=== PATIENT | female | born 1940 | race Caucasian/White ===

== ENCOUNTER 2016-12-26 09:38 | Outpatient (CLI) | payer MEDICARE, MEDICAID ==
--- NOTE | 2016-12-26 10:09 | SJPRAD ---
THERE VIEWS RIGHT HAND: Indication: Right hand pain. FINDINGS: There is moderate first CMC osteoarthrosis. There is moderate STT osteoarthrosis. There is scattered IP osteoarthrosis. There is mild to moderate long finger MCP osteoarthritic change with associated subchondral cyst like abnormality. IMPRESSION: Scattered osteoarthrosis of the right hand. POS: [facility]
== END 2016-12-26 09:39 | disposition home or self-care (01) ==
LOC: MWLC RAD 09:38
PROVIDERS: ATTEND Internal Medicine Geriatric Medicine
DX: M79.641 Pain in right hand (principal); M19.041 Primary osteoarthritis, right hand

== ENCOUNTER 2017-05-28 08:23 | Outpatient (CLI) | payer MEDICARE, MEDICAID | END 2017-05-28 08:24 | disposition home or self-care (01) | LOC: BICULT 08:23 | PROVIDERS: ATTEND Internal Medicine Geriatric Medicine | DX: M54.2 Cervicalgia (principal) | CPT/HCPCS: 76536 ==

== ENCOUNTER 2017-07-10 08:36 | Outpatient (CLI) | payer MEDICARE, MEDICAID ==
--- NOTE | 2017-07-11 12:21 | RAD ---
MODIFIED BARIUM SWALLOW WITH SPEECH THERAPIST: HISTORY: The patient is a 7-year-old female with unspecified dysphagia with other cerebrovascular disease as w ell as gastroesophageal reflux disease without esophagitis. FINDINGS: The patient was evaluated in the upright seated position in the lateral projection. The patient was given multiple consistencies. There was some minimal premature spillage in the vallecula. There was penetration with essentially a ll consistencies without tania aspiration. Anterior cervical changes at what appears to be C3, C4, C 5, C6, and probably C7. IMPRESSION: Penetration with most all consistencies with minimal premature spillage in the vallecula. POS: [facility]
== END 2017-07-10 08:37 | disposition home or self-care (01) ==
PROVIDERS: ATTEND Internal Medicine Geriatric Medicine
DX: R13.10 Dysphagia, unspecified (principal); I67.89 Other cerebrovascular disease; K21.9 Gastro-esophageal reflux disease without esophagitis
CPT/HCPCS: 74230; G8996-GN-CJ; G8997-GN-CI; G8998-GN-CJ

== ENCOUNTER 2017-07-19 08:04 | Outpatient (CLI) | payer MEDICARE, MEDICAID ==
--- NOTE | 2017-07-19 09:08 | RAD ---
CERVICAL SPINE 3 VIEWS: Date: 07/19/17 HISTORY: 77-year-old female with history of neck pain. COMPARISON: 07/29/15. FINDINGS: Anterior cervical fusion changes are noted at C3, C4, C5, C6, and C7. The right-sided C3 and right-si ded C& screws have been removed when compared to the 07/29/15 study. There is fusion of C4 through C7 . Disc degenerative changes are noted at C2-C3 and C3-C4. No significant free vertebral soft tissue s welling. No significant malalignment. IMPRESSION: Extensive postoperative metal plate and screw stabilization from C3 through C7. Other than removal of the right-sided screws from C3 and C7, there is no significant change from the prior study. POS: [facility]
== END 2017-07-19 08:05 | disposition home or self-care (01) ==
LOC: TBSIIMAG 08:04
PROVIDERS: ATTEND Surgery
DX: M54.2 Cervicalgia (principal); Z98.890 Other specified postprocedural states
CPT/HCPCS: 72040

== ENCOUNTER 2017-07-23 10:32 | Outpatient (CLI) | payer MEDICARE, MEDICAID | END 2017-07-23 10:33 | disposition home or self-care (01) | LOC: BICMRI 10:32 | PROVIDERS: ATTEND Orthopaedic Surgery | DX: M25.511 Pain in right shoulder (principal); M67.88 Other specified disorders of synovium and tendon, other site; M19.011 Primary osteoarthritis, right shoulder; M25.711 Osteophyte, right shoulder; R60.0 Localized edema ==

== ENCOUNTER 2017-08-14 08:29 | Day surgery (SDC) | payer MEDICARE, MEDICAID ==
[2017-08-13 10:14] VITALS: BMI 40.2
--- NOTE | 2017-08-14 11:51 | OP ---
DATE OF PROCEDURE: 08/14/2017 PROCEDURE: Esophagogastroduodenoscopy with Aguilar dilation. PHYSICIAN: Gonsalo rCooks M.D. ANESTHESIA: Pain medications given by Anesthesiology Department. PREOPERATIVE DIAGNOSES: 1. Gastroesophageal reflux disease. 2. Dysphagia, oropharyngeal dysphagia with modified barium swallow. 3. Excluding any intraluminal process contributing to her dysphagia. POSTOPERATIVE DIAGNOSES: 1. Normal esophagus, Z-line at 42 cm. 2. Normal stomach and duodenum. 3. Status post empiric esophageal dilatation with 54-[place] Aguilar without resistance. PROCEDURE IN DETAIL: A written consent was obtained prior to procedure. After adequate sedation, th e forward-viewing endoscope was advanced down the hypopharynx under direct vision to the second porti on of duodenum. The first and second portion appeared normal. The duodenal bulb appeared normal. P ylorus is patent. The gastric antrum, body, fundus, and cardia all appeared normal. Retroflexion di d not show any abnormality. The GE junction was noted at 42 cm from the incisors. The Z-line appear s to be regular. The distal, mid, and upper esophagus appeared normal. Despite no abnormality seen in the esophagus, empiric dilatation was performed using a 54-[place] Aguilar without any resistance. Patient tolerated the procedure well without any complication. ASSESSMENT: 1. Normal upper endoscopy. 2. Status post esophageal dilatation with 54 [place] Aguilar without any resistance. 3. Dysphagia is from oropharyngeal transfer type. RECOMMENDATIONS: Proceed with a VitalStim therapy.
[2017-08-14] MEDS ORDERED: Lidocaine 1% PF 5 ML VIAL ONE (12:39)
[2017-08-14] MEDS ORDERED: PROPOFOL 200 MG/20 ML VIAL ONE (12:39)
== END 2017-08-14 12:00 | disposition home or self-care (01) ==
LOC: SDC 08:29
PROVIDERS: ATTEND Internal Medicine Gastroenterology
PROC: 0D758ZZ Dilation of Esophagus, Via Natural or Artificial Opening Endoscopic (ICD-10-PCS; principal; 2017-08-14)
DX: K21.9 Gastro-esophageal reflux disease without esophagitis (principal); J45.909 Unspecified asthma, uncomplicated; I10 Essential (primary) hypertension; M19.90 Unspecified osteoarthritis, unspecified site; F41.9 Anxiety disorder, unspecified; F32.9 Major depressive disorder, single episode, unspecified; Z88.2 Allergy status to sulfonamides; Z88.8 Allergy status to other drugs, medicaments and biological substances; Z86.73 Personal history of transient ischemic attack (TIA), and cerebral infarction without residual deficits

== ENCOUNTER 2017-10-21 08:34 | Outpatient (CLI) | payer MEDICARE, MEDICAID ==
--- NOTE | 2017-10-21 11:16 | RAD ---
CERVICAL SPINE 3 VIEWS: Date: 10/21/17 HISTORY: 77-year-old female with history of cervicalgia. Fall last year with neck pain and pain down right arm . COMPARISON: 07/19/17. FINDINGS: Anterior cervical fusion changes are noted at C3, C4, C5, C6, and C7, with some mild retrolisthesis o f C3 on C4, stable from prior study, 07/19/17. No prevertebral soft tissue swelling. Generalized face t arthrosis. IMPRESSION: Extensive anterior cervical fusion changes from C3-C7 with mild retrolisthesis of C3 on C4, stable. N o new process. POS: [facility]
== END 2017-10-21 08:35 | disposition home or self-care (01) ==
LOC: TBSIIMAG 08:34
PROVIDERS: ATTEND Surgery
DX: M50.30 Other cervical disc degeneration, unspecified cervical region (principal); M43.12 Spondylolisthesis, cervical region; Z98.1 Arthrodesis status
CPT/HCPCS: 72040

== ENCOUNTER 2017-10-28 09:12 | Emergency (ER) | payer MEDICARE, MEDICAID ==
--- NOTE | 2017-10-28 11:04 | RAD ---
PA CHEST AND RIGHT RIB SERIES: Date: 10/28/17 HISTORY: Fall, right-sided chest pain. FINDINGS/IMPRESSION: The heart size is normal. The aorta is tortuous. The lungs are well expanded without lobar consolidat ion, pneumothoraces, or pleural effusions. There are degenerative changes in the right shoulder joint . Postop changes of metallic hardware are seen in the lower cervical spine and a left humeral head pr osthesis is present. There is suggestion of fractures involving the right 6th, 7th, and 8th ribs. There are postop changes and metallic hardware in the lumbar spine. There are postop changes of gastr ic banding. POS: [facility]
== END 2017-10-28 11:03 | disposition home or self-care (01) ==
LOC: SCSER 09:12
DX: R07.89 Other chest pain (principal); E03.9 Hypothyroidism, unspecified; K21.9 Gastro-esophageal reflux disease without esophagitis; I10 Essential (primary) hypertension; Z86.73 Personal history of transient ischemic attack (TIA), and cerebral infarction without residual deficits; F41.9 Anxiety disorder, unspecified; F32.9 Major depressive disorder, single episode, unspecified; W18.30XA Fall on same level, unspecified, initial encounter; Z79.899 Other long term (current) drug therapy

== ENCOUNTER 2017-10-29 12:38 | Emergency (ER) | payer MEDICARE, MEDICAID ==
--- NOTE | 2017-10-29 14:01 | CT ---
CT ABDOMEN AND PELVIS WITHOUT CONTRAST: Date: 10/29/17 HISTORY: Hematuria. FINDINGS: Absence of oral and IV contrast reduces the sensitivity of exam, particularly for evaluation of solid organs and bowel. There are mild dependent changes in the lung bases. There are postop changes of gastric banding and p osterior spinal fusion with metallic hardware in the lumbar spine. No free air or free fluid is seen in the abdomen or pelvis. No calcified gallstones are identified. The liver demonstrates decreased at tenuation compared to the spleen consistent with fatty infiltration. A solitary right kidney is present. No calculi seen in the right kidney, right ureter, or the urinary bladder. No hydroureteronephrosis is noted on the right. No calculi seen in the urinary bladder. The patient is post hysterectomy. The small bowel loops are not abnormally dilated. There are calcifi ed injection granulomas in the gluteal fat. Heterotopic ossification is also seen in the right glutea l fat. IMPRESSION: 1. Solitary right kidney without evidence of urinary tract calculi or obstruction. 2. Fatty liver. POS: [facility]
[2017-10-29] MEDS ORDERED: Lidocaine 1% PF 5 ML VIAL ONE (14:42)
[2017-10-29] MEDS ORDERED: cefTRIAXone\\ROCEPHIN 1 GM VIAL ONE (14:42)
[2017-10-29] MEDS ORDERED: Ondansetron ODT 4 MG TAB ONE (15:18)
== END 2017-10-29 15:11 ==
LOC: ERS 12:38
DX: N39.0 Urinary tract infection, site not specified (principal); R31.9 Hematuria, unspecified; I10 Essential (primary) hypertension; F32.9 Major depressive disorder, single episode, unspecified
CPT/HCPCS: 74176; 87077; 87086; 87186; 96372; 99213; G0463; J0696; J2001; Q0162

== ENCOUNTER 2018-02-11 13:06 | Observation (INO) | payer MEDICARE, MEDICAID ==
[2018-02-11 14:11] LABS: #Eosinphils 0.1 thou/uL (0.0-0.7); #Lymphocytes 1.7 thou/uL (1.20-3.40); #Monocytes 0.6 thou/uL (0.11-0.59); #Neutrophils 5.8 thou/uL (1.40-6.50); %Basophils 0.5 % (0.0-1.0); %Eosinophils 1.5 % (0.0-10.0); %Lymphocytes 20.9 % (21.0-51.0); %Monocytes 7.4 % (0.0-10.0); %Neutrophils 69.7 % (42.0-75.0); Hemoglobin 12.7 g/dL (12.0-16.0); Mean Corpuscular HGB CONC 32.6 g/dL (32.0-36.0); Mean Corpuscular Hemoglobin 30.1 pg (27.0-31.0); Mean Corpuscular Volume 92.4 fL (78.0-98.0); Mean Platelet Volume 8.1 fL (7.4-10.4); Platelet Count 233 thou/uL (130-400); RBC Distribution Width 12.4 % (11.5-14.5); Red Blood Cell (RBC) Count 4.22 mill/uL (4.20-5.40); White Blood Cell (WBC) Count 8.3 thou/uL (4.8-10.8)
[2018-02-11 14:32] LABS: ALT (SGPT) 10 U/L (8-55); AST (SGOT) 15 U/L (5-34); Albumin 4.3 g/dL (3.4-4.8); Alkaline Phosphatase 92 U/L (40-150); Anion Gap 13 mmol/L (10-20); BUN (Urea Nitrogen) 30 mg/dL (9.8-20.1); Bilirubin, Total 0.4 mg/dL (0.2-1.2); Calc. Creatinine Clearance 0 mL/min (70-130); Calcium 9.9 mg/dL (7.8-10.44); Carbon Dioxide 26 mmol/L (23-31); Chloride 103 mmol/L (98-107); Estimated GFR-MDRD 46; Globulin 3.2 g/dL (2.4-3.5); Glucose 96 mg/dL (83-110); Protein, Total 7.5 g/dL (6.0-8.3); Sodium 138 mmol/L (136-145)
--- NOTE | 2018-02-11 14:32 | RAD ---
UPRIGHT PORTABLE CHEST 1 VIEW: HISTORY: A 7-year-old female with a history of syncope. Fell backwards while walking and hit head on ground. COMPARISON: 10/28/2017. FINDINGS: Monitor leads overlie the chest. Postop changes involving the lower cervical spine and surgical clip s overlying the right medial supraclavicular region as well as left total shoulder replacement. Hear t size is upper range normal. Atherosclerosis of the aorta. No confluent pneumonia, overt edema, or pleural effusion. IMPRESSION: Borderline heart size. Atherosclerosis of the aorta with some ectasia. Overall stable from prior st y. POS: [facility]
[2018-02-11 14:33] LABS: Bilirubin Negative (Negative); Blood, Urine Negative (Negative); Clarity CLEAR (Clear); Glucose, Urine (Dipstick) Negative (Negative); Leukocyte Small (Negative); Nitrite Negative (Negative); Protein, Urine (Dipstick) Negative (Neg-Trace); Specific Gravity, Urine 1.019 (1.002-1.036); Urobilinogen 0.2 mg/dL (0.2-1.0); pH, Urine 5.5 (5.0-9.0)
[2018-02-11 14:35] LABS: Bacteria/HPF None Seen HPF (None Seen); Hyaline Casts/LPF 0-3 HYALINE CAST LPF (0-3 Hyaline); Pathc Cast-AUWi Flag 0.43 (0-2.49); RBC/HPF 0-3 HPF (0-3); Squamous Epithelial 0-3 HPF (0-3)
[2018-02-11 14:37] LABS: CKMB 1.3 ng/mL (0-6.6); Troponin I Less than 0.010 ng/mL (< 0.028)
--- NOTE | 2018-02-11 15:09 | CT ---
CT BRAIN WITHOUT CONTRAST: HISTORY: Syncope, fall, hit her head, seizure. FINDINGS: Comparison is made with the exam of 01/26/2016. Changes of chronic small-vessel ischemic disease are again seen. The ventricular size is appropriate and the basilar cisterns patent. The old infarct in the left basal ganglia is again seen. No evide nce of acute infarct, hemorrhage, midline shift, or abnormal extraaxial fluid collections noted. The bony calvarium is intact. The visualized paranasal sinuses are well aerated. IMPRESSION: No CT evidence of acute intracranial process. POS: [facility]
--- NOTE | 2018-02-11 15:26 | CT ---
CT CERVICAL SPINE WITHOUT CONTRAST: HISTORY: Fall. Posttraumatic pain. COMPARISON: 07/29/2015. FINDINGS: Lateral masses of C1 and C2 as well as the facets have appropriate articulation. Intact odontoid pro cess. Straightening of normal cervical lordosis is again noted. There is 3 mm of anterolisthesis of C2 upon of C3. There is an anterior fusion plate with transvertebral body screws from C3 through C7 . The right screw at C3 has come loose and is not appropriately located on the current examination. The right screw at C7 also appears to be absent. Previously, the screws at C3 and C7 were not flush with the plate. Main screws are unremarkable. Soft tissue neck structures are unremarkable. Upper mediastinum and lung apices are also unremarkable. Vertebral body height is maintained. There is no fracture. IMPRESSION: 1. No fracture. 2. Interval absence of a screw in the right aspect of the fusion plate of C3 and C7. 3. Stable degenerative changes with varying degrees of central canal stenosis and foraminal narrowin g. Evaluation is limited by technique. 4. Stable spondylolisthesis involving the upper cervical spine. POS: [facility]
--- NOTE | 2018-02-11 15:32 | CT ---
THORACIC SPINE CT WITHOUT CONTRAST: HISTORY: Fall. Posttraumatic pain. COMPARISON: 07/14/2015. TECHNIQUE: CT thoracic spine is performed without contrast. FINDINGS: Stable degenerative change of the thoracic spine. Thoracic spine vertebral body height is maintained . No fracture. No spondylolisthesis or spondylolysis. Multilevel degenerative disk disease with loss of disk space height and vacuum disk phenomenon. Cervical fusion hardware is noted. Limited evaluation of the mediastinum. No mass, lymphadenopathy, or hematoma. Normal heart size. N o significant pericardial fluid. Note is made of a gastric LAP band. The visualized retroperitoneal structures are unremarkable. Central spinal canal and neural foramen are patent. Evaluation is limited by technique. Visualized ribs are also intact. IMPRESSION: 1. No fracture. 2. Stable degenerative changes of the thoracic spine. POS: [facility]
[2018-02-11] MEDS ORDERED: Acetaminophen 325 MG TAB PO PRN (16:45)
[2018-02-11] MEDS ORDERED: Lactated Ringer's 1,000 ML IV SCH (17:00)
--- NOTE | 2018-02-11 17:29 | PDOC.FPRHP ---
- History of Present Illness Chief Complaint: fall History of Present Illness: 77 yo F with PMH of "irregular heart rate" and stroke presents to ED after syncopal episode earlier today. She was walking around house when she had an unwitnessed fall landing on her back. At baseline she requires a 4wheel walker to ambulate but was not using it before fall. Denies any prodromal symptoms. Patient is poor historian and unable to tell if she lost consciousness or not. She states coming-to and feeling disoriented. Daughter walked in shortly after fall and stated she saw patient with full body convulsions lasting a few minutes , unresponsive to verbal command. After, she patient was confused to situation. Patient denies loss of urine, bowels. Had prior seizure in October while undergoing MRI imaging at hospital, but no further workup was conducted. Also has PMH of stroke and panic disorder, but denies any similar sxs during this fall. Denied chest pain, neurologic deficits, headache. She has been followed by Dr. Hill for "fast heart beats" in which she has undergone holter monitoring that confirmed this. He had wanted her to undergo a stress test but was unable to complete it. - Allergies/Adverse Reactions Allergies Allergy/AdvReac Type Severity Reaction Status Date / Time amoxicillin trihydrate Allergy severe Verified 02/11/18 17:11 [From Augmentin] yeast infection potassium clavulanate Allergy severe Verified 02/11/18 17:11 [From Augmentin] yeast infection sulfisoxazole AdvReac Severe Nausea Verified 02/11/18 17:11 [From Gantrisin] - Home Medications Medication Instructions Recorded Confirmed Type Amitriptyline HCl [Elavil] 100 mg PO HS 04/27/13 02/11/18 History Clopidogrel Bisulfate [Plavix] 75 mg PO DAILY 04/27/13 02/11/18 History Metoprolol Succinate 2 tab PO QAM 04/27/13 02/11/18 History Fenofibrate [Tricor] 1 tab PO HS 12/17/14 02/11/18 History busPIRone HCl [Buspirone HCl] 1 tab PO TID 12/17/14 02/11/18 History Furosemide [Lasix] 20 mg PO DAILY 12/18/14 02/11/18 History Levothyroxine Sodium [Synthroid] 75 mcg PO DAILY 12/18/14 02/11/18 History Potassium Chloride 8 meq PO DAILY 07/13/15 02/11/18 History Cholecalciferol (Vitamin D3) 10,000 unit PO DAILY 08/16/15 02/11/18 History [Vitamin D3] Aspirin [Low Dose Aspirin EC] 81 mg PO DAILY 11/09/15 02/11/18 History Pantoprazole [Protonix] 40 mg PO BID 01/30/16 02/11/18 History FLUoxetine HCl [Prozac] 60 mg PO DAILY 08/13/17 02/11/18 History Gabapentin 100 mg PO BID 08/13/17 02/11/18 History clonazePAM 1 tab PO HS 08/13/17 02/11/18 History Acetaminophen [Tylenol] 1,000 mg PO Q6HR PRN 02/11/18 02/11/18 History Fluticasone Propionate [Flonase 1 spray EA NARE BID 02/11/18 02/11/18 History Nasal [place]] [place]-3 Fatty Acids/Fish Oil [Fish 1 cap PO DAILY 02/11/18 02/11/18 History Oil 1,000 mg Capsule] tiZANidine HCl [Zanaflex] 4 mg PO Q8HR PRN 02/11/18 02/11/18 History - History PMHx: Dysphagia, HTN, COPD, High risk for falls, Panic disorder, Dysthymic disorder, Abnormal heart rhythm, Hypothyroidism?, GERD, CKD, 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 denies: nausea, vomiting, constipation, GI bleeding Genitourinary: denies: dysuria Skin: denies: lesions Musculoskeletal: reports: pain, stiffness, arthritis/arthralgias Neurological: reports: syncope, seizure, weakness Psychological: reports: anxiety - Vital signs BP: [151/65] HR: [63] RR: [16] Tmax: [98] Pox: [96]% on [RA] Wt: [108] - Physical Exam Constitutional: awake, alert and oriented, other -Constitutional: anxious appearing HEENT: normocephalic and atraumatic, PERRLA, EOMI, conjunctiva clear, no scleral icterus, normal nasal mucosa, oropharynx clear, other (mild periorbital edema) -HEENT: mildly dry mucous membranes Neck: supple, FROM, trachea midline Chest: no-tender to palpation Heart: RRR, normal S1/S2, no murmurs/rubs/gallops Lungs: CTAB, no respiratory distress, no wheezing Abdomen: soft, non-tender, no masses/distention Musculoskeletal: normal tone, ROM grossly normal -Musculoskeletal: BLE strength 4/5 Neurological: no focal deficit, CN II-XII intact, normal sensation Skin: no rash/lesions, capillary refill <2 seconds -Skin: prior, healed scars at lumbar spinal area from prior surgeries dec. skin turgor Heme/Lymphatic: no unusual bruising or bleeding, no petechia Psychiatric: other (anxious affect) FMR H&P: Results - Labs Result Diagrams: 02/12/18 03:17 02/12/18 03:17 Lab results: WBC 8.3 thou/uL (4.8-10.8) 02/11/18 14:02 Hgb 12.7 g/dL (12.0-16.0) 02/11/18 14:02 Hct 39.0 % (36.0-47.0) 02/11/18 14:02 MCV 92.4 fL (78.0-98.0) 02/11/18 14:02 Plt Count 233 thou/uL (130-400) 02/11/18 14:02 Neutrophils % 69.7 % (42.0-75.0) 02/11/18 14:02 Sodium 138 mmol/L (136-145) 02/11/18 14:02 Potassium 4.0 mmol/L (3.5-5.1) 02/11/18 14:02 Chloride 103 mmol/L (98-107) 02/11/18 14:02 Carbon Dioxide 26 mmol/L (23-31) 02/11/18 14:02 BUN 30 mg/dL (9.8-20.1) H 02/11/18 14:02 Creatinine 1.15 mg/dL (0.6-1.1) H 02/11/18 14:02 Glucose 96 mg/dL (83-110) 02/11/18 14:02 Calcium 9.9 mg/dL (7.8-10.44) 02/11/18 14:02 Total Bilirubin 0.4 mg/dL (0.2-1.2) 02/11/18 14:02 AST 15 U/L (5-34) 02/11/18 14:02 ALT 10 U/L (8-55) 02/11/18 14:02 Alkaline Phosphatase 92 U/L (40-150) 02/11/18 14:02 CK-MB (CK-2) 1.3 ng/mL (0-6.6) 02/11/18 14:02 Serum Total Protein 7.5 g/dL (6.0-8.3) 02/11/18 14:02 Albumin 4.3 g/dL (3.4-4.8) 02/11/18 14:02 Urine Ketones Negative mg/dL (Negative) 02/11/18 14:21 Urine Blood Negative (Negative) 02/11/18 14:21 Urine Nitrite Negative (Negative) 02/11/18 14:21 Ur Leukocyte Esterase Small (Negative) H 02/11/18 14:21 Urine RBC 0-3 HPF (0-3) 02/11/18 14:21 Urine WBC 4-6 HPF (0-3) H 02/11/18 14:21 Ur Squamous Epith Cells 0-3 HPF (0-3) 02/11/18 14:21 Urine Bacteria None Seen HPF (None Seen) 02/11/18 14:21 - EKG Interpretation EKG: possible prolonged QTc at 464, repeat showed QTc <460 FMR H&P: A/P - Problem List (1) Episode of syncope Current Visit: Yes Status: Acute Code(s): R55 - SYNCOPE AND COLLAPSE (2) MINI (acute kidney injury) Current Visit: Yes Status: Acute Code(s): N17.9 - ACUTE KIDNEY FAILURE, UNSPECIFIED (3) CKD (chronic kidney disease) Current Visit: Yes Status: Chronic Code(s): N18.9 - CHRONIC KIDNEY DISEASE, UNSPECIFIED (4) Hypertension Current Visit: No Status: Chronic Code(s): I10 - ESSENTIAL (PRIMARY) HYPERTENSION (5) GERD (gastroesophageal reflux disease) Current Visit: No Status: Chronic Code(s): K21.9 - GASTRO-ESOPHAGEAL REFLUX DISEASE WITHOUT ESOPHAGITIS (6) Dysphagia Current Visit: Yes Status: Acute Code(s): R13.10 - DYSPHAGIA, UNSPECIFIED (7) History of nephrectomy, unilateral Current Visit: Yes Status: Chronic Code(s): Z90.5 - ACQUIRED ABSENCE OF KIDNEY (8) Generalized anxiety disorder Current Visit: Yes Status: Chronic Code(s): F41.1 - GENERALIZED ANXIETY DISORDER (9) Panic disorder Current Visit: Yes Status: Chronic Code(s): F41.0 - PANIC DISORDER [ EPISODIC PAROXYSMAL ANXIETY] (10) History of CVA (cerebrovascular accident) Current Visit: Yes Status: Chronic Code(s): Z86.73 - PRSNL HX OF TIA (TIA), AND CEREB INFRC W/O RESID DEFICITS - Plan 77 yo F here for syncopal workup Syncopal episode -Likely cardiogenic in nature based on history, however no recent records. Will work up for cardiogenic etiologies and request records -Prolactin mildly elevated, consider primary seizure if cardiac w/u negative -Plan for NST tomorrow, tele monitoring. -Continue DUAP -CE negative x2, will continue to trend -Will risk stratify with A1c, FLP. Will check Mg/Phos -Will request records from Dr. Hill's office to see if recent echos performed MINI vs CKD -Pt gfr & creatinine around baseline likely from nephrectomy, but creatinine mildly elevated compared to prior hosp. values -Will give fluid bolus of 500cc -Possible hx of CHF so will not resume mIVF, will need to confirm this -Continue to monitor with daily BMPs HTN -hold metoprolol for stress test -continue lasix -hydralazine prn Possible hypothyroidism -Pt on home synthroid, however no records with confirmed dx -Hold synthroid, check recent TSH Hx of left nephrectomy -Not on dialysis, renal function around baseline Anxiety -continue home meds Panic disorder -continue home meds High risk for falls -fall precautions -walking program evaluation dvt ppx: SCDs gi ppx: protonix dipso: <[address] 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 Patient states she was up walking around in her home when she suddenly fell. She remembers screaming for help but cannot remember much after that point. The fall was unwitnessed. However, a few minutes later, her daughter came into the room and reportedly saw her shaking as if she was having a seizure. She states that she seemed out of it after the incident and kept stating she did not feel well. She reportedly had a "seizure" back in October. She has no other prior history of seizure and no history of syncopal episodes previously. Patient was recently seen at [facility] and referred to Dr. Hill for cardiac workup to include stress test. She was supposed to have stress test performed by Dr. Hill on Dec 31, however, it never got done due to "IV access issues" per the patient. Patient reports fluttering in her chest, but has no previous diagnosis of a-fib or a-flutter. She wore a halter monitor several years ago and everything was reportedly normal at that time. Patient currently denies any chest pain, shortness of breath, diaphoresis. Of note, patient is supposed to use walker or electrical wheelchair, but she has not been using it as advised. - Pertinent findings General: Alert, oriented x3. NAD. Appears anxious. HEENT: PERRLA, Periorbital edema bilaterally Cards: RRR, no murmurs Resp: No acute respiratory distress. Clear to auscultation Neuro: No focal deficits. CN II-XII intact. SHALINI: Strength 3/5 bilateral lower extremities. Poor patient effort. Skin: Warm and dry. - Plan Date/Time: 02/11/18 1702 I, Tiffani Tolliver, have evaluated this patient and agree with findings/plan as outlined by technology risk intern resident. Pertinent changes/additions are listed here. Syncope possibly related to cardiac etiology: - No prodromal symptoms - EKG with very mild QT prolongation which resolved on subsequent EKG; junctional rhythm noted on 2nd EKG - Avoid additional QT prolongation medications - Continuous monitoring on telemetry - Stress test in AM to evaluate for CAD at cause of syncope - Obtain records from Dr. Hill's office; verify last echo - Trend troponins; neg x2 - HgA1c, lipid panel, TSH, Mg, P - Mild fluid resuscitation - Orthostatic vital signs - Consider cardiology consult for holter monitor ZACK with history of panic attacks - Continue home medications - Reassurance COPD - Reportedly on 3L O2 at home - Satting 95% on RA; Do not give O2 (goal 88-92%) - Continue home medications HTN - Continue home medications Hypothyroidism - Questionable diagnosis; cannot find in clinic chart where this has been diagnosed, but patient on meds per pharmacy - Hold levothyroxine for now to verify. TSH pending GERD - Continue home medication Hx of CVA - Continue plavix, ASA - Continue statin or start statin if not already on one MINI vs. 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 Tolliver and Dr. Bateman I agree with the History, Examination, Assessment and Plan documented above with any addition or exceptions noted below. 77 yo female with multiple medical conditions presents to ER for evaluation of LOC and fall Patient reports fall with LOC. Patient's daughter reports brief episode of convulsions. Patient denies aura or symptoms prior to passing out. Reports an episode of diarrhea x1 the previous day. No longer able to tolerate lasix due to renal function. Reporting increased swelling. History of multiple falls and now requires assistance with ambulation but not using at home. VS reviewed. Imaging reviewed. Labs reviewed. Non ill appearing. RRR. No murmur. CTA bilaterally Some bruising noted to extremities. 1. Syncopal event: Unsure etiology at this time. Risk for cardiovascular cause due to past medical history. Does report palpitations in ROS. Denies any symptoms prior to event today. Possible related to hypovolemia as well. Obtain orthostatic vitals. Place on tele. Evaluate cardiovascular status with ECHO. Has outpatient stress testing pending will proceed while inpatient due to risk. Prolactin mildly high but likely related to psych meds. Brain imaging negative, however only CT performed. Monitor other comobidities. Adjust meds as needed. ABrayMD
[2018-02-11] MEDS ORDERED: Lactated Ringer's 500 ML IV SCH (17:45)
[2018-02-11 17:52] LABS: Troponin I Less than 0.010 ng/mL (< 0.028)
[2018-02-11 18:11] VITALS: BMI 43.7
[2018-02-11 18:28] LABS: Hemoglobin A1c 5.6 % (4.0-6.0)
[2018-02-11 18:39] LABS: CKMB 1.1 ng/mL (0-6.6)
[2018-02-11] MEDS ORDERED: hydrALAZINE 20 MG/ML VIAL SLOW IVP PRN (18:44)
[2018-02-11] MEDS ORDERED: tiZANidine HCl 4 MG TAB PO PRN (18:48)
[2018-02-11] MEDS: Acetaminophen 500 MG TAB PO PRN (18:52)
[2018-02-11] MEDS ORDERED: clonazePAM 0.5 MG TAB PO SCH (21:00)
[2018-02-11] MEDS ORDERED: traMADol HCl 50 MG TAB PO SCH (21:00)
[2018-02-11] MEDS ORDERED: Amitriptyline HCl 100 MG TAB PO SCH (21:00)
[2018-02-11] MEDS ORDERED: Fenofibrate Nanocrystallized 145 MG TAB PO SCH (21:00)
[2018-02-11 21:01] LABS: Troponin I Less than 0.010 ng/mL (< 0.028)
[2018-02-11] MEDS: busPIRone HCl 10 MG TAB PO SCH (21:30)
[2018-02-11] MEDS: Gabapentin 100 MG CAP PO SCH (21:30)
[2018-02-12 03:36] LABS: #Eosinphils 0.1 thou/uL (0.0-0.7); #Lymphocytes 1.4 thou/uL (1.20-3.40); #Monocytes 0.5 thou/uL (0.11-0.59); #Neutrophils 4.8 thou/uL (1.40-6.50); %Basophils 0.4 % (0.0-1.0); %Eosinophils 1.7 % (0.0-10.0); %Lymphocytes 20.8 % (21.0-51.0); %Monocytes 6.8 % (0.0-10.0); %Neutrophils 70.3 % (42.0-75.0); Hemoglobin 11.7 g/dL (12.0-16.0); Mean Corpuscular HGB CONC 32.6 g/dL (32.0-36.0); Mean Corpuscular Hemoglobin 30.3 pg (27.0-31.0); Mean Platelet Volume 8.6 fL (7.4-10.4); Platelet Count 205 thou/uL (130-400); RBC Distribution Width 12.3 % (11.5-14.5); Red Blood Cell (RBC) Count 3.87 mill/uL (4.20-5.40); White Blood Cell (WBC) Count 6.9 thou/uL (4.8-10.8)
[2018-02-12 03:57] LABS: Anion Gap 14 mmol/L (10-20); BUN (Urea Nitrogen) 25 mg/dL (9.8-20.1); Calc. Creatinine Clearance 87 mL/min (70-130); Calcium 9.3 mg/dL (7.8-10.44); Carbon Dioxide 24 mmol/L (23-31); Cardiac Risk 4.3 (Less than 4.5); Chloride 104 mmol/L (98-107); Cholesterol 159 mg/dl (< 200 Desired); Estimated GFR-MDRD 58; Glucose 106 mg/dL (83-110); HDL Cholesterol 37 mg/dL (>60 Neg Risk); LDL Cholesterol, Calculated 71 mg/dL; Magnesium 1.8 mg/dL (1.6-2.6); Potassium 3.8 mmol/L (3.5-5.1); Sodium 138 mmol/L (136-145); Triglycerides 254 mg/dL (Less than 150)
[2018-02-12 03:59] LABS: Phosphorus 3.5 mg/dL (2.3-4.7)
--- NOTE | 2018-02-12 06:13 | PDOC.FM ---
- Subjective Subjective: Patient reports feeling sore all over from the fall yesterday. Has had multiple falls over the past year. Reports dry mouth d/t NPO status. Has been ambulating with assistance to bathroom. Denies SOB, heart palpitations. On home 3L. Reports she was tested by Dr. Kennedy and does not have COPD from second hand smoke. - Objective MAR Reviewed: Yes Vital Signs & Weight: Vital Signs (12 hours) Temp Pulse Resp BP BP BP BP 02/12/18 03:10 97.8 F 70 19 115/54 L 02/11/18 23:29 97.6 F 61 20 120/55 L 02/11/18 20:44 85 147/65 H 125/60 BP Pulse Ox 02/12/18 03:10 98 02/11/18 23:29 94 L 02/11/18 20:44 122/60 Weight Weight 108.6 kg I&O: 02/10/18 02/11/18 02/12/18 06:59 06:59 06:59 Intake Total 1220 Output Total 275 Balance 945 Result Diagrams: 02/12/18 03:17 02/12/18 03:17 <Eloise Pandya - Last Filed: 02/12/18 08:38> - Objective Vital Signs & Weight: Vital Signs (12 hours) Temp Pulse Pulse Pulse Resp BP BP 02/12/18 09:50 69 68 140/72 02/12/18 07:25 97.4 F L 68 18 02/12/18 03:10 97.8 F 70 19 115/54 L BP BP Pulse Ox 02/12/18 09:50 154/68 H 02/12/18 07:25 141/69 H 98 02/12/18 03:10 98 Weight Weight 108.6 kg I&O: 02/11/18 02/12/18 02/13/18 06:59 06:59 06:59 Intake Total 1220 Output Total 275 Balance 945 Result Diagrams: 02/12/18 03:17 02/12/18 03:17 <Tomy Marques - Last Filed: 02/12/18 11:47> Phys Exam - Physical Examination Constitutional: NAD dry mucus membranes Respiratory: no wheezing, no rhonchi, clear to auscultation bilateral Cardiovascular: RRR, no significant murmur Gastrointestinal: soft, non-tender, no distention, positive bowel sounds Musculoskeletal: no edema Neurological: non-focal, moves all 4 limbs Psychiatric: normal affect Skin: normal turgor, cap refill <2 seconds <Eloise Pandya - Last Filed: 02/12/18 08:38> Dx/Plan (1) Episode of syncope Code(s): R55 - SYNCOPE AND COLLAPSE Status: Acute (2) Recurrent falls Code(s): R29.6 - REPEATED FALLS Status: Acute (3) MINI (acute kidney injury) Code(s): N17.9 - ACUTE KIDNEY FAILURE, UNSPECIFIED Status: Acute (4) CKD (chronic kidney disease) Code(s): N18.9 - CHRONIC KIDNEY DISEASE, UNSPECIFIED Status: Chronic (5) Generalized anxiety disorder Code(s): F41.1 - GENERALIZED ANXIETY DISORDER Status: Chronic (6) History of nephrectomy, unilateral Code(s): Z90.5 - ACQUIRED ABSENCE OF KIDNEY Status: Chronic (7) Panic disorder Code(s): F41.0 - PANIC DISORDER [EPISODIC PAROXYSMAL ANXIETY] Status: Chronic (8) GERD (gastroesophageal reflux disease) Code(s): K21.9 - GASTRO-ESOPHAGEAL REFLUX DISEASE WITHOUT ESOPHAGITIS Status: Chronic (9) Hypertension Code(s): I10 - ESSENTIAL (PRIMARY) HYPERTENSION Status: Chronic (10) Hypothyroidism Code(s): E03.9 - HYPOTHYROIDISM, UNSPECIFIED Status: Chronic (11) Supplemental oxygen dependent Code(s): Z99.81 - DEPENDENCE ON SUPPLEMENTAL OXYGEN Status: Chronic (12) History of CVA (cerebrovascular accident) Code(s): Z86.73 - PRSNL HX OF TIA (TIA), AND CEREB INFRC W/O RESID DEFICITS Status: Chronic - Plan Plan: 77 yo F presents for syncope. Syncopal episode -Possibly cardiogenic in nature based on history -Prolactin mildly elevated, consider primary seizure if cardiac w/u negative -Plan for stress test today -Monitor on tele, no noted events -trop neg x3 -Will request records from Dr. 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 Today Cr 0.93. -s/p fluid bolus of 500cc -Continue to monitor with daily BMPs HTN -hold metoprolol for stress test -lasix held d/t MINI -hydralazine prn - BP stable Possible hypothyroidism -Pt on home synthroid, however no records with confirmed dx. Pt reports she was diagnosed by a doctor whose name she cannot remember -Held synthroid -TSH 1.9 Hx of left nephrectomy -renal function around baseline Supplemental O2 dependence - on 3L at home - pt reports Dr. Kennedy tested her lungs and says she does not have COPD - hx of second hand smoke exposure. ZACK with panic attacks -continue home clonazepam, buspar, amitriptyline, fluoxetine GERD - continue home protonix High risk for falls -fall precautions -PT evaluation Dysphagia - records report it is d/t revision of back surgery Hx of CVA - Continue plavix, ASA - on fish oil, fenofibrate - not on statin - ASCVD risk 12.9% dvt ppx: SCDs gi ppx: protonix dispo: Pending stress test today pt could likely be stable for discharge today. Rehab screen and PT pending. Patient would likely benefit from rehab. <Eloise Pandya - Last Filed: 02/12/18 08:38> Attending Addendum - Attending Addendum Date/Time: 02/12/18 0160 I personally evaluated the patient and discussed the management with Dr. Pandya. I agree with the History, Examination, Assessment and Plan documented above with any addition or exceptions noted below. Patient reports soreness this morning but no other complaints. She desires to go back home. We have discussed that her living alone and falling more frequently is an unsafe environment for her. She has agreed to speak with Rehab , but seems determined to go home. PT eval pending. She does have services and a daughter that lives next door to her that she can contact with issues. Her workup so far is benign, but she may need some fluid volume. Awaiting stress testing results. Her elevated prolactin level is likely 2/2 SSRI/TCA use. No events on telemetry and other workup negative. Further mgmt per stress test results, but will likely be stable for discharge later today with continued negative workup. <Tomy Marques - Last Filed: 02/12/18 11:47>
[2018-02-12] MEDS ORDERED: Potassium Chloride 8 MEQ TAB PO SCH (08:00)
[2018-02-12] MEDS ORDERED: FLUoxetine HCl 20 MG CAP PO SCH (09:00)
[2018-02-12] MEDS ORDERED: Clopidogrel Bisulfate 75 MG TAB PO SCH (09:00)
[2018-02-12] MEDS ORDERED: Fish Oil 1,000 MG CAP PO SCH (09:00)
[2018-02-12] MEDS ORDERED: Aspirin 81 mg Enteric Coated Tablet PO SCH (09:00)
[2018-02-12] MEDS ORDERED: Furosemide 20 MG TAB PO SCH (09:00)
[2018-02-12] MEDS ORDERED: Enoxaparin Sodium 40 MG/0.4 ML SYRINGE SC SCH (09:00)
[2018-02-12] MEDS: Acetaminophen 500 MG TAB PO PRN (09:30)
[2018-02-12] MEDS: Gabapentin 100 MG CAP PO SCH (09:31)
[2018-02-12] MEDS: busPIRone HCl 10 MG TAB PO SCH ×2 (09:31→14:20)
[2018-02-12] MEDS ORDERED: Lactated Ringer's 1,000 ML IV SCH (11:15)
[2018-02-12] MEDS ORDERED: Ondansetron PF 4 MG/2 ML Vial IVP PRN (13:20)
[2018-02-12] MEDS ORDERED: Ketorolac Tromethamine 30 MG/ML VIAL IVP PRN (13:20)
[2018-02-12] MEDS ORDERED: Ketorolac Tromethamine 30 MG/ML VIAL IVP SCH (13:30)
--- NOTE | 2018-02-12 13:59 | NM ---
NUCLEAR MEDICINE CARDIAC STRESS WITH EF AND WALL MOTION: HISTORY: Unprovoked syncope. COMPARISON: 06/08/2014 TECHNIQUE: Stress only imaging was performed. The patient was administered 28 millicuries of technetium 99m ses tamibi intravenously. FINDINGS: Homogeneous distribution of the radiotracer in the left ventricle. End-diastolic volume is 74 mL. End-systolic volume is 17 mL. CARDIAC GATING: Normal motion and thickening. Ejection fraction 77%. IMPRESSION: 1. No evidence of abnormal radiotracer localization of the left ventricle. 2. Ejection fraction 77%. POS: [facility]
[2018-02-12] MEDS ORDERED: Regadenoson 0.4 MG/5 ML SYRINGE ONE (15:12)
[2018-02-12 15:55] VITALS: BP 133/60; TEMP 97.6
[2018-02-12] MEDS ORDERED: Ondansetron ODT 4 MG TAB SL SCH (18:00)
--- NOTE | 2018-02-19 17:20 | DIS ---
DATE OF ADMISSION: 02/11/2018 DATE OF DISCHARGE: 02/12/2018 RESIDENT: Eloise Pandya DO ADMITTING ATTENDING: Marycruz Franco MD. DISCHARGE ATTENDING: Tomy Marques MD. CONSULTS: None. PROCEDURES: 1. On 02/11/2018, chest x-ray showed borderline heart size, atherosclerosis of aorta with some ectasia. Overall stable from prior study. 2. Cervical spine CT showed no fracture, interval absence of a screw in the right aspect of the fusion plate of C3 and C7, stable degenerative changes with varying degrees of central canal stenosis and foraminal narrowing, stable spondylolisthesis involving the upper cervical spine. 3. Thoracic spine CT showed no fracture and stable degenerative changes of the thoracic spine. 4. Brain CT showed no evidence of acute intracranial process. 5. Stress nuclear medicine test on 02/12/2018 showed no evidence of abnormal radiotracer localization of the left ventricle, ejection fraction 77%, normal motion and thickening. PRIMARY DIAGNOSES: 1. Syncopal episodes. 2. Acute kidney injury on chronic kidney disease 3. 3. Hypertension. SECONDARY DIAGNOSES: 1. Hypothyroidism. 2. History of left nephrectomy. 3. Supplemental O2 dependence. 4. Generalized anxiety disorder with panic attacks. 5. Gastroesophageal reflux disease. 6. Fall risk. 7. Dysphasia. 8. History of cerebrovascular accident. DISCHARGE MEDICATIONS: 1. Metoprolol 100 mg ER two tablets p.o. q.a.m. 2. Clopidogrel 75 mg p.o. daily. 3. Amitriptyline 100 mg p.o. at bedtime. 4. Fenofibrate one tablet p.o. at bedtime. 5. Buspirone one tablet p.o. t.i.d. 6. Synthroid 75 mcg p.o. daily. 7. Lasix 20 mg p.o. daily. 8. Potassium chloride 8 mEq p.o. daily. 9. Vitamin D 10,000 units p.o. daily. 10. Aspirin 81 mg p.o. daily. 11. Protonix 40 mg p.o. b.i.d. 12. Fluoxetine 60 mg p.o. daily. 13. Gabapentin 100 mg p.o. b.i.d. 14. Clonazepam 0.5 mg p.o. at bedtime. 15. Acetaminophen 1000 mg p.o. q.6 hours p.r.n. 16. [place]-3 fatty acid fish oil one cap p.o. daily. 17. Flonase nasal spray one spray each naris b.i.d. 18. Zanaflex 4 mg p.o. q.8 hours p.r.n. HISTORY OF PRESENT ILLNESS: A 77-year-old female presents after reported syncopal episode earlier that day with an unwitnessed fall landing on her back. Denied any prodromal symptoms. She stated coming to and feeling disoriented. Possible history of full body convulsions reported by daughter. She had prior seizure in October while undergoing MRI at the hospital, but no further workup was conducted. She has been followed by Dr. Hill for fast heart beats, in which she has undergone Holter monitoring that confirmed this. He had wanted her to have an outpatient stress test, but this was unable to be completed. The patient was admitted for syncopal workup. Consideration was given to a cardiac origin considering history of irregular heart beat. However, stress test was normal and the patient was stable on telemetry monitoring. The patient's home medications were continued throughout the hospitalization. She did not have any other symptoms during her stay. Workup conducted was overall negative. Dr. Hill's office was notified of stress test performed. The patient to follow up with PCP in the outpatient setting. Additional consideration may be given to seizure like activity. LABORATORY DATA: Laboratory values of note included an initial creatinine of 1.15, which corrected to 0.93 on discharge. Hemoglobin A1c 5.6, hemoglobin 12.7. Troponins negative x3. TSH 1.9, triglycerides 254. UA negative. DISPOSITION: Stable. DISCHARGE INSTRUCTIONS: Location: Inpatient rehab. Diet: Heart healthy. Activity: As tolerated. Follow up with PCP in 7 days. Job ID: [id number] [facility]
== END 2018-02-12 17:48 ==
LOC: ERS 13:06 → 2SW 16:55
PROVIDERS: ADMIT Student in an Organized Health Care Education/Training Program; ATTEND Student in an Organized Health Care Education/Training Program
DX: R55 Syncope and collapse (principal); I12.9 Hypertensive chronic kidney disease with stage 1 through stage 4 chronic kidney disease, or unspecified chronic kidney disease; N18.3 Chronic kidney disease, stage 3 (moderate); N17.9 Acute kidney failure, unspecified; J44.9 Chronic obstructive pulmonary disease, unspecified; F34.1 Dysthymic disorder; F41.0 Panic disorder [episodic paroxysmal anxiety]; E03.9 Hypothyroidism, unspecified; K21.9 Gastro-esophageal reflux disease without esophagitis; Z91.81 History of falling; Z86.73 Personal history of transient ischemic attack (TIA), and cerebral infarction without residual deficits; Z79.02 Long term (current) use of antithrombotics/antiplatelets; Z79.82 Long term (current) use of aspirin; Z79.51 Long term (current) use of inhaled steroids; Z79.899 Other long term (current) drug therapy; Z88.0 Allergy status to penicillin; Z88.2 Allergy status to sulfonamides; Z90.5 Acquired absence of kidney; Z99.81 Dependence on supplemental oxygen; W19.XXXA Unspecified fall, initial encounter
CPT/HCPCS: 70450; 71045; 72125; 72128; 78452; 80048; 80061; 82553 ×2; 83036; 83735 ×2; 84100; 84146; 84484 ×2; 85025; 93005; 93017; 96361; 96374; 97139 ×3; 99285; A9500; G0378 ×2; G8978; G8979; G8987; G8988; 36415; 80053; 81003; 81015; 84443; J0360; J1885; J2785

== ENCOUNTER 2018-03-16 08:52 | Emergency (ER) | payer MEDICARE, MEDICAID ==
[2018-03-16] MEDS ORDERED: Pantoprazole 40 MG VIAL ONE (09:02)
[2018-03-16] MEDS ORDERED: Ondansetron PF 4 MG/2 ML Vial ONE (09:02)
[2018-03-16] MEDS ORDERED: Dicyclomine 20 MG TAB ONE (09:02)
[2018-03-16 10:00] LABS: ALT (SGPT) 44 U/L (8-55); AST (SGOT) 71 U/L (5-34); Albumin 4.1 g/dL (3.4-4.8); Alkaline Phosphatase 101 U/L (40-150); Anion Gap 16 mmol/L (10-20); BUN (Urea Nitrogen) 27 mg/dL (9.8-20.1); Bilirubin, Total 0.4 mg/dL (0.2-1.2); Calc. Creatinine Clearance 0 mL/min (70-130); Calcium 9.6 mg/dL (7.8-10.44); Carbon Dioxide 22 mmol/L (23-31); Chloride 102 mmol/L (98-107); Estimated GFR-MDRD 43; Globulin 3.3 g/dL (2.4-3.5); Glucose 116 mg/dL (83-110); Lipase 25 U/L (8-78); Potassium 4.7 mmol/L (3.5-5.1); Protein, Total 7.4 g/dL (6.0-8.3); Sodium 135 mmol/L (136-145)
[2018-03-16 10:39] LABS: #Eosinphils 0.1 thou/uL (0.0-0.7); #Lymphocytes 0.8 thou/uL (1.20-3.40); #Monocytes 0.3 thou/uL (0.11-0.59); #Neutrophils 8.5 thou/uL (1.40-6.50); %Basophils 0.4 % (0.0-1.0); %Eosinophils 1.2 % (0.0-10.0); %Lymphocytes 8.6 % (21.0-51.0); %Monocytes 3.5 % (0.0-10.0); %Neutrophils 86.4 % (42.0-75.0); Hemoglobin 13.5 g/dL (12.0-16.0); Mean Corpuscular HGB CONC 33.6 g/dL (32.0-36.0); Mean Corpuscular Hemoglobin 31.3 pg (27.0-31.0); Mean Corpuscular Volume 93.1 fL (78.0-98.0); Mean Platelet Volume 8.7 fL (7.4-10.4); Platelet Count 185 thou/uL (130-400); RBC Distribution Width 12.4 % (11.5-14.5); Red Blood Cell (RBC) Count 4.33 mill/uL (4.20-5.40); White Blood Cell (WBC) Count 9.8 thou/uL (4.8-10.8)
[2018-03-16 11:43] LABS: Bilirubin Negative (Negative); Blood, Urine Negative (Negative); Clarity CLEAR (Clear); Glucose, Urine (Dipstick) Negative (Negative); Leukocyte Negative (Negative); Nitrite Negative (Negative); Protein, Urine (Dipstick) Negative (Neg-Trace); Specific Gravity, Urine 1.016 (1.002-1.036)
--- NOTE | 2018-03-16 11:51 | CT ---
CT ABDOMEN AND PELVIS WITH IV CONTRAST: Date: 03/16/18 HISTORY: Abdominal pain and emesis. FINDINGS: Comparison made with the CT stone protocol of 10/29/17. There are dependent changes in the lung bases. Changes of fatty infiltration in the liver are again seen. Postop changes of gastric banding and post erior spinal fusion with metallic hardware in the lumbar spine again seen. A gallbladder is not seen. No free air or free fluid is noted in the abdomen or pelvis. The spleen, pancreas, and adrenal glands are normal. A solitary right kidney is present. The 2.8 cm cyst arising from the superior pole of the right kidne y is stable. No right-sided hydroureteronephrosis is seen. There are vascular calcifications without evidence of aneurysmal dilatation of the abdominal aorta. No pericolonic inflammatory changes are see n. IMPRESSION: No evidence of acute process. POS: [facility]
== END 2018-03-16 14:53 | disposition home or self-care (01) ==
LOC: ERS 08:52
DX: R11.2 Nausea with vomiting, unspecified (principal); R19.7 Diarrhea, unspecified; E03.9 Hypothyroidism, unspecified; K21.9 Gastro-esophageal reflux disease without esophagitis; I10 Essential (primary) hypertension; Z86.73 Personal history of transient ischemic attack (TIA), and cerebral infarction without residual deficits; F41.9 Anxiety disorder, unspecified; F32.9 Major depressive disorder, single episode, unspecified; Z79.899 Other long term (current) drug therapy
CPT/HCPCS: 36415; 74177; 80053; 81003; 83690; 84484; 85025; 87086; 93005; 96361; 96365; 96375; C9113; J0131; J2405

== ENCOUNTER 2018-09-18 18:01 | Inpatient (IN) | payer MEDICARE, MEDICAID ==
[2018-09-18 19:27] LABS: #Eosinphils 0.1 thou/uL (0.0-0.7); #Lymphocytes 1.5 thou/uL (1.20-3.40); #Monocytes 0.6 thou/uL (0.11-0.59); #Neutrophils 8.5 thou/uL (1.40-6.50); %Basophils 0.2 % (0.0-1.0); %Eosinophils 1.3 % (0.0-10.0); %Lymphocytes 13.6 % (21.0-51.0); %Neutrophils 78.9 % (42.0-75.0); Hemoglobin 12.1 g/dL (12.0-16.0); Mean Corpuscular HGB CONC 32.3 g/dL (32.0-36.0); Mean Corpuscular Hemoglobin 30.6 pg (27.0-31.0); Mean Corpuscular Volume 94.6 fL (78.0-98.0); Mean Platelet Volume 7.9 fL (7.4-10.4); Platelet Count 188 thou/uL (130-400); RBC Distribution Width 12.8 % (11.5-14.5); Red Blood Cell (RBC) Count 3.96 mill/uL (4.20-5.40); White Blood Cell (WBC) Count 10.7 thou/uL (4.8-10.8)
[2018-09-18] MEDS ORDERED: diphenhydrAMINE 50 MG/ML VIAL ONE (19:31)
[2018-09-18] MEDS ORDERED: Acetaminophen 500 MG TAB ONE (19:31)
[2018-09-18] MEDS ORDERED: Metoclopramide HCl 10 MG/2 ML VIAL ONE (19:31)
[2018-09-18] MEDS ORDERED: Labetalol HCl 100 MG/20 ML VIAL ONE (19:31)
--- NOTE | 2018-09-18 19:39 | CT ---
CT head noncontrast HISTORY: Headache. COMPARISON: 02/11/2018. FINDINGS: There is no evidence of acute intracranial hemorrhage or infarct. Mild cortical atrophy and chronic ischemic small vessel disease are again demonstrated. Old left basal ganglia infarct is unchanged. There is no mass effect or shift of midline structures. Ventricles appear normal in size, shape and position. IMPRESSION: Chronic-type findings are stable. No acute intracranial abnormalities are demonstrated.
[2018-09-18 19:45] LABS: ALT (SGPT) 11 U/L (8-55); AST (SGOT) 15 U/L (5-34); Albumin 3.9 g/dL (3.4-4.8); Alkaline Phosphatase 151 U/L (40-150); Anion Gap 17 mmol/L (10-20); BUN (Urea Nitrogen) 22 mg/dL (9.8-20.1); Bilirubin, Total 0.7 mg/dL (0.2-1.2); Calc. Creatinine Clearance 0 mL/min (70-130); Calcium 9.2 mg/dL (7.8-10.44); Carbon Dioxide 20 mmol/L (23-31); Chloride 108 mmol/L (98-107); Estimated GFR-MDRD 65; Globulin 3.1 g/dL (2.4-3.5); Glucose 100 mg/dL (83-110); Potassium 4.2 mmol/L (3.5-5.1); Sodium 141 mmol/L (136-145)
[2018-09-18 21:13] LABS: Free T4 (Free Thyroxine) 1.01 ng/dL (0.70-1.48)
[2018-09-18] MEDS ORDERED: cloNIDine 0.1 MG TAB ONE (21:17)
[2018-09-18] MEDS ORDERED: Ondansetron PF 4 MG/2 ML Vial ONE (21:46)
[2018-09-18 21:53] LABS: Thyroid Stimulating Hormone 1.6817 uIU/mL (0.35-4.94)
[2018-09-18] MEDS ORDERED: Lorazepam 2 MG/ML VIAL ONE (21:53)
--- NOTE | 2018-09-18 22:02 | PDOC.FPRHP ---
- History of Present Illness Chief Complaint: headache History of Present Illness: 78 yo F with cHTN, COPD, chronic respiratory failure on 2L, panic disorder, hypothyroidism, CKD s/p left nephrectomy here for headache. Started 3 days ago, unrelieved with tylenol. Measured BP today and it was in the 200s, usually she runs in the 160-170/80s. Headache is associated with nausea, and photophobia. Patient denies hx of migraines. She reports medication compliance but reports eating more chips & dip these days. She has a hx of anxiety and panic disorder and denies recent stressors. However, daughter confides in private that patient has had many anxiety triggers in her life recently. Pt also reports mild chest pain, left sided, but says it feels like her anxiety chest pain she gets. In the ER patient with BP of 217, was given clonidine, 20 IV labetalol, - Allergies/Adverse Reactions Allergies Allergy/AdvReac Type Severity Reaction Status Date / Time amoxicillin trihydrate Allergy severe Verified 09/19/18 00:57 [From Augmentin] yeast infection potassium clavulanate Allergy severe Verified 09/19/18 00:57 [From Augmentin] yeast infection sulfisoxazole AdvReac Severe Nausea Verified 09/19/18 00:57 [From Gantrisin] - Home Medications Medication Instructions Recorded Confirmed Type Amitriptyline HCl [Elavil] 100 mg PO HS 04/27/13 09/19/18 History Clopidogrel Bisulfate [Plavix] 75 mg PO DAILY 04/27/13 09/19/18 History Metoprolol Succinate 2 tab PO QAM 04/27/13 09/19/18 History Fenofibrate [Tricor] 1 tab PO HS 12/17/14 09/19/18 History busPIRone HCl [Buspirone HCl] 1 tab PO TID 12/17/14 09/19/18 History Furosemide [Lasix] 20 mg PO DAILY 12/18/14 09/19/18 History Levothyroxine Sodium [Synthroid] 75 mcg PO DAILY 12/18/14 09/19/18 History Cholecalciferol (Vitamin D3) 10,000 unit PO DAILY 08/16/15 09/19/18 History [Vitamin D3] Aspirin [Low Dose Aspirin EC] 81 mg PO DAILY 11/09/15 09/19/18 History Pantoprazole [Protonix] 40 mg PO BID 01/30/16 09/19/18 History FLUoxetine HCl [Prozac] 60 mg PO DAILY 08/13/17 09/19/18 History Gabapentin 200 mg PO BID 08/13/17 09/19/18 History clonazePAM 0.5 - 1 tab PO HS 08/13/17 09/19/18 History Acetaminophen [Tylenol Extra 1,000 mg PO Q6HR PRN 02/11/18 09/19/18 History Strength] Fluticasone Propionate [Flonase 1 spray EA NARE BID 02/11/18 09/19/18 History Nasal [place]] [place]-3 Fatty Acids/Fish Oil [Fish 1 cap PO DAILY 02/11/18 09/19/18 History Oil 1,000 mg Capsule] tiZANidine HCl [Zanaflex] 4 mg PO Q8HR PRN 02/11/18 09/19/18 History Nystatin 1 applic TOP BID 09/19/18 09/19/18 History - History PMHx:Dysphagia, HTN, COPD, High risk for falls, Panic disorder, Dysthymic disorder, Abnormal heart rhythm, Hypothyroidism, GERD, CKD s/p left nephrectomy ] due to staghorn calculi PSHx: Back surgery x3, knee surgery, left nephrectomy with subsequent multiple surgeries due to infection & abscess, appendectomy, cholecystectomy, hysterectomy, L shoulder replacement FHx:Pinellas's disease, mom of heart attack at 58 Social: denies TAD - Review of Systems General: denies: fever/chills, weight/appetite/sleep changes Eyes: denies: eye pain, vision changes Respiratory: denies: cough, congestion, shortness of breath Cardiovascular: reports: chest pain. denies: edema, orthopnea Gastrointestinal: reports: nausea. denies: vomiting, diarrhea, constipation, abdominal pain Genitourinary: denies: dysuria Skin: denies: rashes, lesions Musculoskeletal: denies: tenderness, stiffness Neurological: denies: seizure, weakness Psychological: reports: anxiety - Vital signs BP: 215/85, Pulse: 75, Resp: 20, Pain: 10, O2 sat: 100 on 3L Oxygen, Time: 2018 21:59. - Physical Exam Constitutional: NAD, awake, alert and oriented HEENT: normocephalic and atraumatic, PERRLA, EOMI, conjunctiva clear, no scleral icterus Neck: supple, FROM Heart: RRR, normal S1/S2 Lungs: CTAB, no respiratory distress, good air movement Abdomen: soft, non-tender Musculoskeletal: normal structure, normal tone, ROM grossly normal Neurological: no focal deficit, CN II-XII intact Skin: good turgor Heme/Lymphatic: no unusual bruising or bleeding, no purpura Psychiatric: other (anxious) FMR H&P: Results - Labs Result Diagrams: 09/18/18 19:21 09/19/18 04:24 Lab results: WBC 10.7 thou/uL (4.8-10.8) 09/18/18 19:21 Hgb 12.1 g/dL (12.0-16.0) 09/18/18 19:21 Hct 37.4 % (36.0-47.0) 09/18/18 19:21 MCV 94.6 fL (78.0-98.0) 09/18/18 19:21 Plt Count 188 thou/uL (130-400) 09/18/18 19:21 Neutrophils % 78.9 % (42.0-75.0) H 09/18/18 19:21 Sodium 141 mmol/L (136-145) 09/18/18 19:21 Potassium 4.2 mmol/L (3.5-5.1) 09/18/18 19:21 Chloride 108 mmol/L (98-107) H 09/18/18 19:21 Carbon Dioxide 20 mmol/L (23-31) L 09/18/18 19:21 BUN 22 mg/dL (9.8-20.1) H 09/18/18 19:21 Creatinine 0.85 mg/dL (0.6-1.1) 09/18/18 19:21 Glucose 100 mg/dL (83-110) 09/18/18 19:21 Calcium 9.2 mg/dL (7.8-10.44) 09/18/18 19:21 Total Bilirubin 0.7 mg/dL (0.2-1.2) 09/18/18 19:21 AST 15 U/L (5-34) 09/18/18 19:21 ALT 11 U/L (8-55) 09/18/18 19:21 Alkaline Phosphatase 151 U/L (40-150) H 09/18/18 19:21 Serum Total Protein 7.0 g/dL (6.0-8.3) 09/18/18 19:21 Albumin 3.9 g/dL (3.4-4.8) 09/18/18 19:21 - Radiology Interpretation CT scan - head Status: report reviewed by me Additional comment: negative for ICH FMR H&P: A/P - Problem List (1) Hypertensive urgency Current Visit: Yes Status: Acute Code(s): I16.0 - HYPERTENSIVE URGENCY (2) CHF (congestive heart failure) Current Visit: No Status: Chronic Code(s): I50.9 - HEART FAILURE, UNSPECIFIED (3) CKD (chronic kidney disease) Current Visit: No Status: Chronic Code(s): N18.9 - CHRONIC KIDNEY DISEASE, UNSPECIFIED (4) GERD (gastroesophageal reflux disease) Current Visit: No Status: Chronic Code(s): K21.9 - GASTRO-ESOPHAGEAL REFLUX DISEASE WITHOUT ESOPHAGITIS (5) Generalized anxiety disorder Current Visit: No Status: Chronic Code(s): F41.1 - GENERALIZED ANXIETY DISORDER (6) History of CVA (cerebrovascular accident) Current Visit: No Status: Chronic Code(s): Z86.73 - PRSNL HX OF TIA (TIA), AND CEREB INFRC W/O RESID DEFICITS (7) History of nephrectomy, unilateral Current Visit: No Status: Chronic Code(s): Z90.5 - ACQUIRED ABSENCE OF KIDNEY (8) Hypertension Current Visit: No Status: Chronic Code(s): I10 - ESSENTIAL (PRIMARY) HYPERTENSION (9) Hypothyroidism Current Visit: No Status: Chronic Code(s): E03.9 - HYPOTHYROIDISM, UNSPECIFIED (10) Panic disorder Current Visit: No Status: Chronic Code(s): F41.0 - PANIC DISORDER [EPISODIC PAROXYSMAL ANXIETY] (11) Supplemental oxygen dependent Current Visit: No Status: Chronic Code(s): Z99.81 - DEPENDENCE ON SUPPLEMENTAL OXYGEN - Plan #Hypertensive urgency -215/88 in ER, s/p IV 20mg labetalol, clonidine, ativan in ER -No signs of end organ damage on labs, CThead neg. for ICH -likely large anxiety given it responded well to ativan & unpredictable lability of BPs - Will resume home BP and continue IV antihypertensives PRN -Will lower MAP gradually ~15% in the first hour and then ~10% in next 23 hours , goal <160/<110 #Migraine -Preceding elevated BP, however cannot discount not secondary to elevated BPs -Received benadryl, reglan, tylenol in ER. -Migraine protocol in addition to lowering blood pressure for sxatic relief #Anxiety/Depression -continue home anxiety meds #CKD s/p left nephrectomy -renal function at [facility] #Hypothyroidsm -home meds #GERD -home meds #Chronic respiratory failure -on home supplemental O2, continue dvt ppx: heparin gi ppx: pantoprazole dispo: <2 midnights Will discuss with Dr. Weiss FMJacob H&P: Upper Level - Plan Date/Time: 09/18/182200 ISadiq, have evaluated this patient and agree with findings/plan as outlined by internet webmaster resident. Pertinent changes/additions are listed here. Pt is a 78 y/o F with HTN, CKD and extensive psych history presenting for CORDERO and not feeling well. States CORDERO began 3d ago. Sharp and constant. Has improved with medication in ED. Also admits to her BP being elevated for 2-3d, and measuring as high as 200/100 at home yesterday. Daughter provides additional history and states pt is being scammed on facebook by a man who states he is going to come get her but never shows up. He reportedly didn't show up again recently and pt has been under duress since. PT used to see Psychiatry, but stopped going and meds are managed by PCP. Pt was given IVF, Labetalol, Ativan with minimal improvement of CORDERO in ED. Vs otherwise have been stable. # Hypertensive Urgency - Will continue IV PRN medication and likely start additional PO medications. Of note, she has recently been hypotensive per daughter. BPs are fluctuating in ED. Continue to monitor. If BPs not improving, will need to begin Cardene Drip. Consider Renal US and additional workup. # CORDERO- Presumed to be 2/2 HTN and anxiety as she has not history of migraine or similar CORDERO. CT head Negative. Will also sorder medications for CORDERO such as Benadryl and Reglan. # Anxiety/Depression- Pt improved with Ativan in ED, likely complicating CORDERO as BPs improved with Ativan as well. Consider continuing overnight. # CKD/Hx/o Nephrectomy- At baseline # Hypothyroidism- TSH and FT4 WNL today. Additional chronic medical conditions as outlined in internet webmaster portion of note. Addendum - Attending - Attending Attestation Date/Time: 09/19/18 2052 I personally evaluated the patient and discussed the management with Dr. Bateman. I agree with the History, Examination, Assessment and Plan documented above with any addition or exceptions noted below. On my evalaution, gabbi described her headache as an explosion in her head 3 days ago and as the worst headache of her life. I am suspicious of subarachnoid hemorrhage. We are arranging for a tighter BP control with a nicardipine drip and evaluation fro SubA hemorrhage with LP with IR.
[2018-09-18 23:16] LABS: Troponin I Less than 0.010 ng/mL (< 0.028)
[2018-09-19] MEDS ORDERED: Labetalol HCl 100 MG/20 ML VIAL SLOW IVP PRN (00:17)
[2018-09-19] MEDS ORDERED: Labetalol HCl 100 MG/20 ML VIAL SLOW IVP SCH (00:31)
[2018-09-19] MEDS ORDERED: Prochlorperazine Edisylate 10 MG in Sodium Chloride 0.9% 50 ML IVPB SCH (00:39)
[2018-09-19] MEDS ORDERED: Sodium Chloride 0.9% 1,000 ML IV SCH (00:45)
--- NOTE | 2018-09-19 01:37 | PDOC.EVN ---
Event Note - Event Note Event Note: Pt seen for refractory BP. SBP 241 taken just after walking. Ordered Labetalol IV 40mg after Dr Bateman spoke with nursing. 15 minutes later I went to evaluate patient and nurse states IV has blown and she has been unable to give medication. Re-attempting IV and nurse instructed to given Labetalol. Pt still complaining of CORDERO. No focal deficits, A&O x3.
[2018-09-19] MEDS ORDERED: Nystatin Powder 15 GM BOT TOP PRN (02:13)
[2018-09-19 02:24] LABS: Troponin I 0.014 ng/mL (< 0.028)
[2018-09-19] MEDS: Acetaminophen 500 MG TAB PO PRN (02:41)
[2018-09-19] MEDS ORDERED: tiZANidine HCl 4 MG TAB PO PRN (04:33)
[2018-09-19] MEDS ORDERED: Ketorolac Tromethamine 60 MG/2 ML VIAL IVP SCH (05:15)
[2018-09-19] MEDS: Levothyroxine Sodium 75 MCG TAB PO SCH (05:23)
[2018-09-19 05:28] LABS: Anion Gap 13 mmol/L (10-20); BUN (Urea Nitrogen) 16 mg/dL (9.8-20.1); Calc. Creatinine Clearance 103 mL/min (70-130); Calcium 8.6 mg/dL (7.8-10.44); Carbon Dioxide 23 mmol/L (23-31); Chloride 108 mmol/L (98-107); Estimated GFR-MDRD 76; Glucose 143 mg/dL (83-110); Potassium 3.7 mmol/L (3.5-5.1); Sodium 140 mmol/L (136-145)
--- NOTE | 2018-09-19 06:26 | PDOC.FM ---
- Subjective Subjective: Pt reports she is still having headache this morning. Denies CP but reports some SOB. She uses 3L O2 at home. - Objective Vital Signs & Weight: Vital Signs (12 hours) Temp Pulse Resp BP BP Pulse Ox 09/19/18 04:03 97.5 F L 73 18 135/96 H 97 09/19/18 02:57 70 174/89 H 09/19/18 02:26 88 179/88 H 09/19/18 01:25 70 150/100 H 09/19/18 00:56 70 210/100 H 09/19/18 00:33 74 241/124 H 09/19/18 00:28 74 241/124 H 09/19/18 00:17 97.5 F L 74 24 H 241/124 H 96 Weight Weight 103.737 kg I&O: 09/17/18 09/18/18 09/19/18 06:59 06:59 06:59 Intake Total 1330 Output Total 200 Balance 1130 Result Diagrams: 09/18/18 19:21 09/19/18 04:24 Phys Exam - Physical Examination Constitutional: NAD HEENT: PERRLA, moist MMs Respiratory: no wheezing, clear to auscultation bilateral fine crackles at bases bilat Cardiovascular: RRR, no significant murmur Gastrointestinal: soft, non-tender, no distention, positive bowel sounds Musculoskeletal: no edema, pulses present Neurological: non-focal, moves all 4 limbs Psychiatric: normal affect Skin: no rash, normal turgor Dx/Plan (1) Hypertensive urgency Code(s): I16.0 - HYPERTENSIVE URGENCY Status: Acute (2) Migraine Code(s): G43.909 - MIGRAINE, UNSP, NOT INTRACTABLE, WITHOUT STATUS MIGRAINOSUS Status: Acute (3) CKD (chronic kidney disease) Code(s): N18.9 - CHRONIC KIDNEY DISEASE, UNSPECIFIED Status: Chronic (4) GERD (gastroesophageal reflux disease) Code(s): K21.9 - GASTRO-ESOPHAGEAL REFLUX DISEASE WITHOUT ESOPHAGITIS Status: Chronic (5) Generalized anxiety disorder Code(s): F41.1 - GENERALIZED ANXIETY DISORDER Status: Chronic (6) Hypothyroidism Code(s): E03.9 - HYPOTHYROIDISM, UNSPECIFIED Status: Chronic (7) Panic disorder Code(s): F41.0 - PANIC DISORDER [EPISODIC PAROXYSMAL ANXIETY] Status: Chronic (8) CHF (congestive heart failure) Code(s): I50.9 - HEART FAILURE, UNSPECIFIED Status: Chronic - Plan Plan: #Hypertensive urgency -215/88 in ER, s/p IV 20mg labetalol, clonidine, ativan in ER. -No signs of end organ damage on labs, CT head negative for ICH -likely large anxiety component given it responded well to ativan & unpredictable lability of BPs. Family reports recent stress with online relationship. -Patient also has been having poor diet, eating a lot of salty foods (chips) recently - Will resume home BP and continue IV antihypertensives PRN -Will lower MAP gradually for next 23 hours, goal <160/<100 -Consider renal ultrasound. -Consider Echo, patient has wide pulse pressure. No murmurs on exam. -Echo in 2014: LVEF 55-60%, grade 1 diastolic dysfunction #Migraine, intractable -No previous history of migraines, however associated with nausea/light sensitivity -Preceding elevated BP, however cannot discount not secondary to elevated BPs -Received benadryl, reglan, tylenol in ER. -s/p compazine, toradol -next step: solumedrol 125 mg IVPx1, Mag sulfate 2 g IVPB over 1 hr #Generalized Anxiety Disorder/Panic Disorder/Depression -continue home meds #HFpEF -Consider repeating echo. In 2015: LVEF 55-60%, grade 1 diastolic dysfunction. #COPD, chronic respiratory failure on 3L -continue home O2 #CKD s/p left nephrectomy -renal function at baseline -consider renal sonogram #Hypothyroidism -home meds. TSH WNL #GERD -home meds Diet: HH dvt ppx: heparin gi ppx: pantoprazole dispo: >2 midnights Addendum - Attending - Attending Attestation Date/Time: 09/19/18 4825 I personally evaluated the patient and discussed the management with Dr. Clemente. I agree with the History, Examination, Assessment and Plan documented above with any addition or exceptions noted below. See my note on the H&P.
[2018-09-19] MEDS ORDERED: Bacteriostatic Water 30 ML VIAL FS PRN (08:14)
[2018-09-19] MEDS ORDERED: Magnesium 2 GM/50 ML 2 GM in Premix Bag 1 BAG IVPB SCH ×2 (08:15→10:45)
[2018-09-19] MEDS: hydrALAZINE 20 MG/ML VIAL SLOW IVP PRN ×2 (08:34→20:28)
[2018-09-19] MEDS ORDERED: Heparin 5,000 UNITS/ML VIAL SC SCH (09:00)
[2018-09-19] MEDS ORDERED: methylPREDNISolone Sod Succ/PF 125 MG/2 ML VIAL IVP SCH (09:00)
[2018-09-19] MEDS ORDERED: Clopidogrel Bisulfate 75 MG TAB PO SCH (09:00)
[2018-09-19] MEDS ORDERED: Aspirin 81 mg Enteric Coated Tablet PO SCH (09:00)
[2018-09-19] MEDS: Furosemide 20 MG TAB PO SCH (09:46)
[2018-09-19] MEDS: FLUoxetine HCl 20 MG CAP PO SCH (09:46)
[2018-09-19] MEDS: Gabapentin 100 MG CAP PO SCH ×2 (09:46→20:29)
[2018-09-19] MEDS: busPIRone HCl 10 MG TAB PO SCH ×3 (09:46→20:28)
[2018-09-19] MEDS: Nystatin Cream 15 GM TUBE TOP SCH ×2 (09:47→21:35)
[2018-09-19] MEDS ORDERED: Ondansetron ORAL SOLN. 4 MG/5 ML UDCUP PO PRN (11:11)
--- NOTE | 2018-09-19 11:58 | CON ---
DATE OF CONSULTATION: HISTORY OF PRESENT ILLNESS: Ella Lee is a morbidly obese female, who was seen in the ER with persistent headache, nausea, vomiting, and feeling bad all over. She has seen Dr. Kennedy in office in the past, that has been three years. She had a formal sleep study done, which she states it was negative for sleep apnea, though she does have low-flow O2 at home. Headache is persistent and visual problems. CT head was negative. PAST MEDICAL HISTORY: Hypertension, morbid obesity, hypoxemia, respiratory failure, reflux, and chronic renal insufficiency. PAST SURGICAL HISTORY: Nephrectomy for an infection, appendix, cholecystectomy, hysterectomy, and orthopedics surgery in left shoulder. SOCIAL HISTORY: Presently, no alcohol or tobacco abuse or substance abuse. MEDICATIONS: Home medicine, long list; 1. Elavil 100. 2. Aspirin 81. 3. Plavix 75. 4. Prozac 60. 5. TriCor. 6. Flonase. 7. Lasix 20. 8. Gabapentin 200 b.i.d. 9. Synthroid 75. 10. Toprol-XL 200 a day. 11. Protonix 40. 12. BuSpar 10 t.i.d. 13. Klonopin 0.25. 14. She was started on IV Cardene in the ICU. REVIEW OF SYSTEMS: Otherwise, pertinent for feeling poorly headache. PHYSICAL EXAMINATION: GENERAL: She appears to be in no acute respiratory distress. VITAL SIGNS: Her saturations are 95 in room air, respirations 21, blood pressure 193/108, and pulse 74. CHEST: No wheezing or crackles. CARDIAC: Normal S1 and S2. No gallops. ABDOMEN: No masses. Neurologic: Awake, alert, responsive, moves all 4 extremities. LABORATORY DATA: Her lytes are normal. Renal function is normal. Previously described renal function is resolved. White count only 10,000. IMPRESSION AND PLAN: 1. Uncontrolled hypertension and encephalopathy. 2. Morbid obesity, probably has sleep apnea. 3. Nonsmoker. 4. Major anxiety. I agree with starting nicardipine. Continue home antihypertensive medication. She probably will benefit from a repeat sleep study. She is to follow up with Dr. Kennedy, when she is in the hospital. TIME SPENT: 70-minute consultation note, 50% direct patient care. Job ID: [id number]
[2018-09-19] MEDS: Ondansetron PF 4 MG/2 ML Vial IVP PRN (12:25)
[2018-09-19 12:37] LABS: PTT 31.4 SEC (22.9-36.1); Prothrombin Time 13.1 SEC (12.0-14.7)
[2018-09-19] MEDS ORDERED: Gabapentin 400 MG CAP PO SCH (12:45)
--- NOTE | 2018-09-19 13:44 | PDOC.EVN ---
Event Note - Event Note Event Note: 78 yo F with cHTN, COPD, chronic respiratory failure on home O2, panic disorder , hypothyroidism, CKD s/p left nephrectomy presented for headache. Had previous short stabbing headaches, then 3 days ago described headache as an "explosion" and "worst headache of my life." Unrelieved with tylenol. She measured her BP at home and systolic was in 200s, while it normally runs 160s-170s. Headache is associated with nausea, and photophobia. Patient denied hx of migraines. She reports medication compliance but reports eating more salty foods including chips. She has a hx of anxiety and panic disorder and denies recent stressors. However, daughter confides in private that patient has had many anxiety triggers in her life recently due to an online relationship. Pt also reports mild chest pain on admission, left sided, but says it feels like her anxiety chest pain she gets. In the ER patient with BP of 217, was given clonidine, [address] was negative for bleed. Initial labs were all normal, no signs of end organ damage. Trops were negative x3. TSH wnl. Patient did not have neck rigidity on exam. She was diagnosed with hypertensive urgency. Blood pressures were not well controlled on the floor, and there was concern for SAH so she was transferred to ICU. She was placed on cardene drip, with SBP goal <160. Interventional radiology was consulted for LP to rule in/out SAH. CSF studies are pending. Chemical DVT ppx, aspirin, and plavix are being held until SAH is ruled out. Patient has SCDs for DVT ppx. Patient has home medications for BP, however she is not currently tolerating due to nausea. Her home clonazepam was increased to TID for anxiety.
[2018-09-19] MEDS: clonazePAM 0.5 MG TAB PO SCH ×2 (14:34→20:29)
--- NOTE | 2018-09-19 16:18 | PDOC.EVN ---
Event Note - Event Note Event Note: Pt with no IV access s/p multiple midline attempts. Has LP planned and will likely require some form of anxiolysis or sedation. Reportedly not tolerating PO. Pressures remain uncontrolled and requiring IV access. Will discuss CVC placement with patient.
[2018-09-19] MEDS ORDERED: Melatonin 3 MG TAB PO PRN (16:49)
--- NOTE | 2018-09-19 17:11 | PDOC.EVN ---
Event Note - Event Note Event Note: When I arrived patient with IV access x 2, small PIV's, but nicardipine infusing. I have consented her for a CVC in the event that she needs one. She still describes an excruciating headache. Will give morphine 4 mg x 1 and I have spoken with radiology who will perform a fluoro LP. I greatly appreciate their assistance with this patient.
[2018-09-19] MEDS: Morphine 4 MG/ML VIAL SLOW IVP PRN (17:16)
--- NOTE | 2018-09-19 18:41 | RAD ---
EXAM: LUMBAR PUNCTURE: 09/19/18 HISTORY: Evaluate for subarachnoid hemorrhage. COMPARISON: None. FINDINGS: Initial view Information Technology Officer lumbar spine radiograph demonstrates extensive fusion hardware from L3 through S1. There is grade I retrolisthesis of L2 upon L3 and grade I anterolisthesis of L4 upon L5. Note is made of a percutaneous gastric lap band, incompletely evaluated. IMPRESSION: Successful lumbar puncture. A total of 9 mL of clear CSF was acquired. TECHNIQUE: Consent obtained to perform a lumbar puncture with fluoroscopic guidance. Patient's back was evaluate d. The L3-L4 level was deemed appropriate. Skin was prepped and draped in a sterile fashion. 1% lidoc guido, buffered with sodium bicarbonate used for local anesthesia. Under fluoroscopic guidance, a 22 g auge spinal needle was advanced into the CSF space. Via a short tubing catheter, total of 9 mL of homa ar CSF was acquired. Patient tolerated the procedure well. No immediate or postprocedure complication s. IMPRESSION: Successful lumbar puncture with fluoroscopic guidance. POS: AFSHAN
[2018-09-19 18:59] LABS: CSF Source CSF; Clarity Clear (Clear); Tube # 4
[2018-09-19 19:02] LABS: Color Of CSF Supernatant COLORLESS (Colorless); Unspun CSF Color COLORLESS (Colorless)
[2018-09-19 19:03] LABS: Tube # 2
[2018-09-19 19:05] LABS: RBC Count - Manual 4 /cumm (None Seen); WBC/NonHematics Count - Manual 0 /cumm (0-5)
[2018-09-19 19:19] LABS: CSF, Glucose 91 mg/dl (40-70); CSF, Protein 50 mg/dL (15-40)
[2018-09-19 19:21] LABS: CSF Source CSF
[2018-09-19 19:22] LABS: Clarity Clear (Clear); RBC Count - Manual 203 /cumm (None Seen); Tube # 1; WBC/NonHematics Count - Manual 1 /cumm (0-5)
[2018-09-19] MEDS: Fenofibrate Nanocrystallized 145 MG TAB PO SCH (20:29)
[2018-09-19] MEDS ORDERED: clonazePAM 0.5 MG TAB PO SCH (21:00)
[2018-09-19] MEDS ORDERED: cloNIDine 0.2 MG TAB PO SCH (21:00)
[2018-09-20] MEDS: hydrALAZINE 20 MG/ML VIAL SLOW IVP PRN (04:10)
[2018-09-20] MEDS: Morphine 4 MG/ML VIAL SLOW IVP PRN (04:31)
[2018-09-20] MEDS: Acetaminophen 500 MG TAB PO PRN ×2 (04:56→12:08)
[2018-09-20 05:11] VITALS: BMI 42.2
[2018-09-20] MEDS: Levothyroxine Sodium 75 MCG TAB PO SCH (05:16)
--- NOTE | 2018-09-20 07:04 | PDOC.FM ---
- Subjective Subjective: No overnight events. Feeling better this morning. Continues to have headache. Relieved with morphine. - Objective MAR Reviewed: Yes Vital Signs & Weight: Vital Signs (12 hours) Temp Pulse BP Pulse Ox 09/20/18 04:10 74 182/83 H 09/20/18 03:00 98.2 F 09/19/18 22:54 98.0 F 09/19/18 20:28 74 182/83 H 09/19/18 19:39 92 L Weight Admit Weight 103.737 kg Weight 104.1 kg Most Recent Monitor Data Heart Rate from ECG 73 NIBP 116/51 NIBP BP-Mean 72 Respiration from ECG 16 SpO2 91 I&O: 09/19/18 09/20/18 09/21/18 06:59 06:59 06:59 Intake Total 1330 555.1 Output Total 200 1850 Balance 1130 -1294.9 Result Diagrams: 09/18/18 19:21 09/19/18 04:24 Phys Exam - Physical Examination Constitutional: NAD HEENT: moist MMs Neck: supple Respiratory: no wheezing, clear to auscultation bilateral Cardiovascular: RRR, no significant murmur Gastrointestinal: soft, non-tender, positive bowel sounds Musculoskeletal: no edema, pulses present Neurological: moves all 4 limbs Psychiatric: normal affect, A&O x 3 Skin: cap refill <2 seconds Dx/Plan (1) Hypertensive urgency Code(s): I16.0 - HYPERTENSIVE URGENCY Status: Acute (2) Migraine Code(s): G43.909 - MIGRAINE, UNSP, NOT INTRACTABLE, WITHOUT STATUS MIGRAINOSUS Status: Acute (3) MINI (acute kidney injury) Code(s): N17.9 - ACUTE KIDNEY FAILURE, UNSPECIFIED Status: Acute (4) Chest pain Code(s): R07.9 - CHEST PAIN, UNSPECIFIED Status: Acute (5) Dysphagia Code(s): R13.10 - DYSPHAGIA, UNSPECIFIED Status: Acute (6) CHF (congestive heart failure) Code(s): I50.9 - HEART FAILURE, UNSPECIFIED Status: Chronic (7) CKD (chronic kidney disease) Code(s): N18.9 - CHRONIC KIDNEY DISEASE, UNSPECIFIED Status: Chronic (8) GERD (gastroesophageal reflux disease) Code(s): K21.9 - GASTRO-ESOPHAGEAL REFLUX DISEASE WITHOUT ESOPHAGITIS Status: Chronic (9) Generalized anxiety disorder Code(s): F41.1 - GENERALIZED ANXIETY DISORDER Status: Chronic (10) History of CVA (cerebrovascular accident) Code(s): Z86.73 - PRSNL HX OF TIA (TIA), AND CEREB INFRC W/O RESID DEFICITS Status: Chronic (11) Hypertension Code(s): I10 - ESSENTIAL (PRIMARY) HYPERTENSION Status: Chronic (12) Hypothyroidism Code(s): E03.9 - HYPOTHYROIDISM, UNSPECIFIED Status: Chronic - Plan Plan: Hypertensive urgency - CT head negative for ICH, LP yesterday confirmed no ICH - Now off the Cardene gtt. - Will start lisinopril. Discontinue Metoprolol and start Coreg. Discussed with pts PCP. - Continue Labetalol and Hydralazine PRN - Consider renal ultrasound - Consider Echo. Echo 2015: LVEF 55-60%, grade 1 diastolic dysfunction Intractable migraines Migraine - No previous history of migraines, however associated with nausea/light sensitivity - Preceding elevated BP, however cannot discount not secondary to elevated BPs - Will discontinue Morphine, encouraged caffeine as she drinks coffee at home and restart CORDERO protocol if CORDERO returns ZACK/Panic Disorder/Depression - Continue home meds HFpEF - Consider repeat echo - 2015: LVEF 55-60%, grade 1 diastolic dysfun. COPD, chronic respiratory failure on 3L - Continue home O2 CKD s/p left nephrectomy - At baseline - Consider renal sonogram Hypothyroidism - Continue home meds - TSH WNL GERD - Continue home meds Code Status: DVT ppx: heparin PCP: STACE[facility] (Dr. Wheeler)
--- NOTE | 2018-09-20 08:21 | PRG ---
DATE OF SERVICE: 09/20/2018 SUBJECTIVE: This morning, she is doing well. Awake, alert, and responsive. OBJECTIVE: VITAL SIGNS: Saturations are 94% on 2 L, blood pressure 140/65, respiratory rate 18, pulse 80. CHEST: No wheezing or crackles. CARDIAC: Normal S1 and S2. No gallops. ABDOMEN: No masses. ASSESSMENT: 1. Uncontrolled hypertension. 2. Headache. PLAN: Apparently, LP was done, which looks normal to me. Blood pressure was controlled. She can probably be transferred out of the ICU on oral medication. Pulmonary will follow while in the ICU. Job ID: [id number]
[2018-09-20] MEDS: Gabapentin 100 MG CAP PO SCH ×2 (08:33→20:08)
[2018-09-20] MEDS: busPIRone HCl 10 MG TAB PO SCH ×3 (08:34→20:08)
[2018-09-20] MEDS: FLUoxetine HCl 20 MG CAP PO SCH (08:34)
[2018-09-20] MEDS: clonazePAM 0.5 MG TAB PO SCH ×3 (08:35→20:07)
[2018-09-20] MEDS: Furosemide 20 MG TAB PO SCH (08:35)
[2018-09-20] MEDS: Nystatin Cream 15 GM TUBE TOP SCH ×2 (09:00→20:09)
[2018-09-20] MEDS ORDERED: Ibuprofen 600 MG TAB PO PRN (10:07)
[2018-09-20] MEDS ORDERED: diphenhydrAMINE 50 MG/ML VIAL IVP PRN (13:27)
[2018-09-20] MEDS ORDERED: Metoclopramide HCl 10 MG/2 ML VIAL IVP PRN (13:27)
[2018-09-20] MEDS: Ketorolac Tromethamine 30 MG/ML VIAL IVP PRN ×2 (14:50→22:00)
[2018-09-20] MEDS: Ondansetron PF 4 MG/2 ML Vial IVP PRN (14:57)
[2018-09-20] MEDS ORDERED: diphenhydrAMINE 50 MG/ML VIAL IVP SCH (17:00)
[2018-09-20] MEDS: Carvedilol 6.25 MG TAB PO SCH (17:13)
[2018-09-20] MEDS: Fenofibrate Nanocrystallized 145 MG TAB PO SCH (20:08)
[2018-09-21] MEDS: Levothyroxine Sodium 75 MCG TAB PO SCH (06:10)
--- NOTE | 2018-09-21 07:13 | PDOC.FM ---
- Subjective Subjective: Slept well, no overnight events. Denies SOB, CORDERO. On O2 at home. - Objective MAR Reviewed: Yes Vital Signs & Weight: Vital Signs (12 hours) Temp Pulse Resp BP Pulse Ox 09/21/18 04:00 97.3 F L 64 14 119/59 L 93 L 09/21/18 00:00 97.6 F 63 14 126/68 99 09/20/18 22:35 99 09/20/18 20:00 95 Weight Admit Weight 103.737 kg Weight 102.149 kg Most Recent Monitor Data Heart Rate from ECG 65 NIBP 129/55 NIBP BP-Mean 79 Respiration from ECG 18 SpO2 92 I&O: 09/20/18 09/21/18 09/22/18 06:59 06:59 06:59 Intake Total 555.1 960 Output Total 1850 700 Balance -1294.9 260 Result Diagrams: 09/18/18 19:21 09/19/18 04:24 Phys Exam - Physical Examination Constitutional: NAD HEENT: moist MMs Neck: supple Respiratory: no wheezing, clear to auscultation bilateral Cardiovascular: RRR, no significant murmur Gastrointestinal: soft, non-tender, positive bowel sounds Musculoskeletal: no edema, pulses present Neurological: moves all 4 limbs Psychiatric: normal affect, A&O x 3 Skin: cap refill <2 seconds Dx/Plan (1) Hypertensive urgency Code(s): I16.0 - HYPERTENSIVE URGENCY Status: Acute (2) Migraine Code(s): G43.909 - MIGRAINE, UNSP, NOT INTRACTABLE, WITHOUT STATUS MIGRAINOSUS Status: Acute (3) MINI (acute kidney injury) Code(s): N17.9 - ACUTE KIDNEY FAILURE, UNSPECIFIED Status: Acute (4) Chest pain Code(s): R07.9 - CHEST PAIN, UNSPECIFIED Status: Acute (5) Dysphagia Code(s): R13.10 - DYSPHAGIA, UNSPECIFIED Status: Acute (6) CHF (congestive heart failure) Code(s): I50.9 - HEART FAILURE, UNSPECIFIED Status: Chronic (7) CKD (chronic kidney disease) Code(s): N18.9 - CHRONIC KIDNEY DISEASE, UNSPECIFIED Status: Chronic (8) GERD (gastroesophageal reflux disease) Code(s): K21.9 - GASTRO-ESOPHAGEAL REFLUX DISEASE WITHOUT ESOPHAGITIS Status: Chronic (9) Generalized anxiety disorder Code(s): F41.1 - GENERALIZED ANXIETY DISORDER Status: Chronic (10) History of CVA (cerebrovascular accident) Code(s): Z86.73 - PRSNL HX OF TIA (TIA), AND CEREB INFRC W/O RESID DEFICITS Status: Chronic (11) Hypertension Code(s): I10 - ESSENTIAL (PRIMARY) HYPERTENSION Status: Chronic (12) Hypothyroidism Code(s): E03.9 - HYPOTHYROIDISM, UNSPECIFIED Status: Chronic - Plan Plan: Hypertensive urgency - CT head and LP negative for ICH - Off the Cardene gtt. - BPs controlled with lisinopril and Coreg. Discussed with pts PCP. - Continue Labetalol and Hydralazine PRN - Likely d/c today if BP remains stable and CORDERO controlled Intractable migraines Migraine - No previous history of migraines, workup for ICH neg - Continue CORDERO protocol ZACK/Panic Disorder/Depression - Continue home meds HFpEF - Consider repeat echo - 2014: LVEF 55-60%, grade 1 diastolic dysfun. COPD, chronic respiratory failure on 3L - Continue home O2 CKD s/p left nephrectomy - At baseline - Consider renal sonogram Hypothyroidism - Continue home meds - TSH WNL GERD - Continue home meds Code Status: DVT ppx: heparin PCP: STACEY (Dr. Wheeler)
[2018-09-21 08:17] VITALS: BP 120/80; TEMP 97.8
[2018-09-21] MEDS: clonazePAM 0.5 MG TAB PO SCH (08:19)
[2018-09-21] MEDS: FLUoxetine HCl 20 MG CAP PO SCH (08:19)
[2018-09-21] MEDS: busPIRone HCl 10 MG TAB PO SCH (08:19)
[2018-09-21] MEDS: Carvedilol 6.25 MG TAB PO SCH (08:19)
[2018-09-21] MEDS: Furosemide 20 MG TAB PO SCH (08:20)
[2018-09-21] MEDS: Gabapentin 100 MG CAP PO SCH (08:20)
[2018-09-21] MEDS: Nystatin Cream 15 GM TUBE TOP SCH (08:21)
[2018-09-21] MEDS ORDERED: Lisinopril 10 MG TAB PO SCH ×2 (09:00)
[2018-09-21] MEDS ORDERED: Amlodipine 5 MG TAB PO SCH (09:00)
--- NOTE | 2018-09-22 03:27 | DIS ---
DATE OF ADMISSION: 09/19/2018 DATE OF DISCHARGE: 09/21/2018 DISCHARGE ATTENDING: Emmanuel Raymond MD CONSULTS: Pulmonology. PROCEDURES: 1. Brain CT, 09/18/2018, chronic findings are stable. No acute intracranial abnormalities demonstrated. 2. Lumbar puncture. 3. Fluoroscopy. PRIMARY DIAGNOSES: 1. Hypertensive urgency. 2. Intractable migraine. SECONDARY DIAGNOSES: 1. General anxiety disorder. 2. Panic disorder. 3. Depression. 4. Heart failure with preserved ejection fraction. 5. Chronic obstructive pulmonary disease. 6. Chronic respiratory failure, on 3 L nasal cannula. 7. Chronic kidney disease status post left nephrectomy. 8. Hypothyroidism. 9. Gastroesophageal reflux disease. DISCHARGE MEDICATIONS: 1. Tylenol 1000 mg q.6 hours p.r.n. 2. Amitriptyline 100 mg at bedtime. 3. Aspirin 81 mg daily. 4. Buspirone 10 mg t.i.d. 5. Coreg 12.5 b.i.d. 6. Vitamin D3 63301 units daily. 7. Clonazepam 0.5 mg at bedtime. 8. Plavix 75 mg daily. 9. Tricor 160 mg at bedtime. 10. Fluoxetine 60mg daily. 11. Flonase 1 spray each nares b.i.d. 12. Furosemide 20 mg daily. 13. Gabapentin 200 mg b.i.d. 14. Ibuprofen 600 mg q.6 hours p.r.n. 15. Levothyroxine 75 mcg daily. 16. Lisinopril 10 mg daily. 17. Nystatin topically b.i.d. 18. Fish oil one capsule daily. 19. Protonix 40 mg b.i.d. 20. Tizanidine 4 mg q.8 hours p.r.n. HISTORY OF PRESENT ILLNESS/HOSPITAL COURSE: Ms. Lee is a 78-year-old female who presented to the emergency room for headache that was unrelieved with Tylenol. Her blood pressure was noted to be in the 200 systolic. The patient had had multiple stressors likely contributing to elevated blood pressure. She was given clonidine and 20 mg IV labetalol in the ED. CT of the head was negative. LP was performed for concern for intracranial hemorrhage that was negative. MAP was gradually lowered for goal of over less than 100. The patient was switched from metoprolol to Coreg and lisinopril was added. The patient's blood pressures were 120s over 60s to 70s at discharge with this regimen. There was discussion with Dr. Wheeler in [facility], who is patient's PCP about her blood pressure regimen and plan for discharge. He was in agreement with the plan as well as the patient. Her migraine had resolved at discharge. She had been treated with headache protocol. She was briefly on morphine that had resolved headaches, though stable with Toradol, Benadryl, and Reglan p.r.n. prior to discharge. Her chronic medical conditions of general anxiety, panic disorder and depression, as well as heart failure with preserved ejection fraction, COPD, CKD, hypothyroidism, and GERD were managed with home medications and were stable throughout the course of hospitalization. DISPOSITION: Stable. DISCHARGE INSTRUCTIONS: 1. Location: Home. 2. Diet: Heart healthy fluid restriction. 3. Activity: No restrictions. 4. Followup: With Dr. Wheeler, patient's PCP within 3 to 7 days. Job ID: [id number] MTDD
--- NOTE | 2018-09-22 16:03 | PRG ---
DATE OF SERVICE: 09/20/2018 ADDENDUM: Please see the note from Dr. Mar Isidro for which I agree. The patient was evaluated, discussed, and examined with residents by bedside. The patient was now off the Cardene drip and blood pressure is better. Still needing occasional p.r.n. medicines. Also still having headache for which she is getting morphine, we are going to switch that to p.o. Exam is fine. ENT is normal. Chest clear. Cardiovascular, regular rate and rhythm, apparently LP done yesterday was fine as well. No evidence that she has a bleed, and so she will get up to the floor and just work on monitoring her blood pressure. I would probably start a long-acting NENO inhibitor, switch to Coreg and do some clonidine just from her short-acting benefits currently. Job ID: [id number]
--- NOTE | 2018-09-22 16:13 | PRG ---
DATE OF SERVICE: 09/21/2018 ADDENDUM: Please see the note done by Dr. Isidro for which I agree. The patient was seen, evaluated, and discussed with the residents by bedside. The patient's headaches better. Blood pressure is controlled, off p.r.n. medicines. We started her on lisinopril yesterday and increased beta-donn by putting her on Coreg b.i.d. and metoprolol. Blood pressure is much better this morning. On exam, chest is clear. Cardiovascular, regular rate and rhythm, and so will be discharged on these her medicines and will follow up with primary in the next week due to monitor blood pressure. Job ID: [id number]
== END 2018-09-21 11:37 | disposition home or self-care (01) | DRG 103 ==
LOC: ERS 18:01 → 2SW 23:46 → OBSVTOIN 09-19 09:44 → CCU 09-19 11:00 → 2NO 09-20 22:35
PROVIDERS: ADMIT Student in an Organized Health Care Education/Training Program; ATTEND Student in an Organized Health Care Education/Training Program
PROC: 009U3ZX Drainage of Spinal Canal, Percutaneous Approach, Diagnostic (ICD-10-PCS; principal; 2018-09-19)
PROC: B01BYZZ Fluoroscopy of Spinal Cord using Other Contrast (ICD-10-PCS; 2018-09-19)
DX: G43.819 Other migraine, intractable, without status migrainosus (principal); J96.10 Chronic respiratory failure, unspecified whether with hypoxia or hypercapnia; I50.32 Chronic diastolic (congestive) heart failure; Z68.41 Body mass index [BMI] 40.0-44.9, adult; N17.9 Acute kidney failure, unspecified; I13.0 Hypertensive heart and chronic kidney disease with heart failure and stage 1 through stage 4 chronic kidney disease, or unspecified chronic kidney disease; I16.0 Hypertensive urgency; J44.9 Chronic obstructive pulmonary disease, unspecified; E03.9 Hypothyroidism, unspecified; N18.9 Chronic kidney disease, unspecified; F32.9 Major depressive disorder, single episode, unspecified; F41.0 Panic disorder [episodic paroxysmal anxiety]; K21.9 Gastro-esophageal reflux disease without esophagitis; F41.9 Anxiety disorder, unspecified; E66.01 Morbid (severe) obesity due to excess calories; Z88.1 Allergy status to other antibiotic agents; Z99.81 Dependence on supplemental oxygen; Z88.8 Allergy status to other drugs, medicaments and biological substances; Z79.899 Other long term (current) drug therapy; Z79.82 Long term (current) use of aspirin; Z79.51 Long term (current) use of inhaled steroids; Z90.5 Acquired absence of kidney; Z90.49 Acquired absence of other specified parts of digestive tract; Z90.710 Acquired absence of both cervix and uterus; Z86.73 Personal history of transient ischemic attack (TIA), and cerebral infarction without residual deficits
CPT/HCPCS: 36415; 62270; 70450; 80048; 80053; 82945; 84157; 84439; 84443; 84484; 85025; 85610; 85730; 87205; 89051; 93005; J0360; J0780; J1200; J1644; J1885; J2060; J2270; J2405; J2765; J2930; J3475; J7050

== ENCOUNTER 2019-04-06 09:02 | Emergency (ER) | payer MEDICARE, MEDICAID ==
[2019-04-06] MEDS ORDERED: HYDROcodone/Acetaminophen 5/325 mg Tablet ONE (10:25)
--- NOTE | 2019-04-06 11:30 | RAD ---
RADIOGRAPH LEFT SHOULDER 3 VIEWS: Date: 04/06/2019 HISTORY: 79-year-old female with persistent traumatic left shoulder pain after fall 1 week ago. FINDINGS: Metallic humeral head prosthesis with stem that reaches proximal-mid humeral shaft junction. No dislo cation. No acute fracture identified. IMPRESSION: 1. No acute fracture or dislocation. 2. 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 POS: OFF
--- NOTE | 2019-04-06 11:31 | RAD ---
RADIOGRAPH CHEST AND LEFT RIBS 4 VIEWS: Date: 04/06/2019 HISTORY: 79-year-old female with persistent post-traumatic left rib pain after fall 1 week ago. FINDINGS: No air space opacity. Nonspecific minimal blunting of left lateral costophrenic angle, possibly chron ic, or perhaps small pleural effusion. No pulmonary edema, cardiomegaly, or pneumothorax. No displace d acute left rib fracture identified. IMPRESSION: No recent left rib fracture identified. POS: OFF
== END 2019-04-06 12:12 | disposition home or self-care (01) ==
LOC: ERS 09:02
DX: R07.81 Pleurodynia (principal); M25.512 Pain in left shoulder; E03.9 Hypothyroidism, unspecified; K21.9 Gastro-esophageal reflux disease without esophagitis; I10 Essential (primary) hypertension; F41.9 Anxiety disorder, unspecified; F32.9 Major depressive disorder, single episode, unspecified; Z86.73 Personal history of transient ischemic attack (TIA), and cerebral infarction without residual deficits; Z79.899 Other long term (current) drug therapy; W01.0XXA Fall on same level from slipping, tripping and stumbling without subsequent striking against object, initial encounter

== ENCOUNTER 2019-04-30 05:43 | Outpatient (CLI) | payer MEDICARE, MEDICAID ==
[2019-04-30 13:47] LABS: #Eosinphils 0.1 thou/uL (0.0-0.7); #Lymphocytes 1.8 thou/uL (1.20-3.40); #Monocytes 0.7 thou/uL (0.11-0.59); #Neutrophils 6.2 thou/uL (1.40-6.50); %Basophils 0.4 % (0.0-1.0); %Eosinophils 1.6 % (0.0-10.0); %Lymphocytes 19.8 % (21.0-51.0); %Monocytes 7.9 % (0.0-10.0); %Neutrophils 70.2 % (42.0-75.0); Hemoglobin 12.5 g/dL (12.0-16.0); Mean Corpuscular HGB CONC 32.7 g/dL (32.0-36.0); Mean Corpuscular Hemoglobin 31.1 pg (27.0-31.0); Mean Corpuscular Volume 95.1 fL (78.0-98.0); Mean Platelet Volume 8.1 fL (7.4-10.4); Platelet Count 242 thou/uL (130-400); RBC Distribution Width 11.5 % (11.5-14.5); Red Blood Cell (RBC) Count 4.03 mill/uL (4.20-5.40); White Blood Cell (WBC) Count 8.8 thou/uL (4.8-10.8)
[2019-04-30 14:08] LABS: ALT (SGPT) Less than 7 U/L (8-55); AST (SGOT) 12 U/L (5-34); Albumin 4.5 g/dL (3.4-4.8); Alkaline Phosphatase 112 U/L (40-110); Anion Gap 14 mmol/L (10-20); BUN (Urea Nitrogen) 29 mg/dL (9.8-20.1); Bilirubin, Total 0.5 mg/dL (0.2-1.2); Calc. Creatinine Clearance 0 mL/min (70-130); Calcium 9.8 mg/dL (7.8-10.44); Carbon Dioxide 27 mmol/L (23-31); Chloride 103 mmol/L (98-107); Estimated GFR-MDRD 53; Globulin 3.1 g/dL (2.4-3.5); Glucose 98 mg/dL (83-110); Potassium 4.1 mmol/L (3.5-5.1); Protein, Total 7.6 g/dL (6.0-8.3); Sodium 140 mmol/L (136-145)
== END 2019-04-30 05:44 | disposition home or self-care (01) ==
LOC: LABBT 05:43
PROVIDERS: ATTEND Internal Medicine Cardiovascular Disease
DX: Z01.818 Encounter for other preprocedural examination (principal); R94.8 Abnormal results of function studies of other organs and systems
CPT/HCPCS: 80053; 85025; 93005; 93010

== ENCOUNTER 2019-05-04 06:07 | Day surgery (SDC) | payer MEDICARE, MEDICAID ==
[2019-04-30 12:00] VITALS: BMI 39.8
[2019-05-04] MEDS ORDERED: Heparin 10,000 UNITS/1 ML VIAL ONE (06:45)
[2019-05-04] MEDS ORDERED: Heparin (Artline) 1,000 ML ONE (06:45)
[2019-05-04] MEDS ORDERED: Lidocaine 1% (PF) 30 ML VIAL ONE (06:47)
[2019-05-04] MEDS ORDERED: Midazolam HCl 2 mg/2 ml Vial ONE (07:08)
[2019-05-04] MEDS ORDERED: Fentanyl 100 MCG/2 ML VIAL ONE (07:08)
[2019-05-04] MEDS ORDERED: Protamine Sulfate 50 MG/5 ML VIAL ONE (07:32)
[2019-05-04 07:35] LABS: Cardiac Risk 3.1 (Less than 4.5)
[2019-05-04] MEDS ORDERED: Morphine 2 MG/ML SYRINGE ONE (10:50)
[2019-05-04] MEDS ORDERED: Furosemide 20 MG TAB PO SCH (11:30)
[2019-05-04] MEDS ORDERED: Carvedilol 25 MG TAB PO SCH (11:30)
[2019-05-04] MEDS ORDERED: Acetaminophen 500 MG TAB ONE (12:09)
[2019-05-04] MEDS ORDERED: Iopamidol 370 76% 100 ML VIAL ONE (15:18)
== END 2019-05-04 15:15 | disposition home or self-care (01) ==
LOC: CCL 06:07
PROVIDERS: ATTEND Internal Medicine Cardiovascular Disease
PROC: 4A023N7 Measurement of Cardiac Sampling and Pressure, Left Heart, Percutaneous Approach (ICD-10-PCS; principal; 2019-05-04)
PROC: B2111ZZ Fluoroscopy of Multiple Coronary Arteries using Low Osmolar Contrast (ICD-10-PCS; 2019-05-04)
DX: R07.89 Other chest pain (principal); I10 Essential (primary) hypertension; E78.00 Pure hypercholesterolemia, unspecified; E03.9 Hypothyroidism, unspecified; F32.9 Major depressive disorder, single episode, unspecified; J44.9 Chronic obstructive pulmonary disease, unspecified; K21.9 Gastro-esophageal reflux disease without esophagitis; Z79.82 Long term (current) use of aspirin; Z79.899 Other long term (current) drug therapy; Z88.0 Allergy status to penicillin; Z88.2 Allergy status to sulfonamides
CPT/HCPCS: 36415; 76942; 80061; 85347; 93458; 99152; C1769; J1644; J2001; J2250; J2270; J2720; J3010; Q9967

== ENCOUNTER 2019-07-16 12:38 | Inpatient (IN) | payer MEDICARE, OTHER ==
[2019-07-16 13:39] LABS: #Eosinphils 0.1 thou/uL (0.0-0.7); #Lymphocytes 1.1 thou/uL (1.20-3.40); #Monocytes 0.8 thou/uL (0.11-0.59); #Neutrophils 8.1 thou/uL (1.40-6.50); %Basophils 0.3 % (0.0-1.0); %Eosinophils 1.2 % (0.0-10.0); %Lymphocytes 10.9 % (21.0-51.0); %Monocytes 8.2 % (0.0-10.0); %Neutrophils 79.5 % (42.0-75.0); Hemoglobin 10.6 g/dL (12.0-16.0); Mean Corpuscular HGB CONC 32.1 g/dL (32.0-36.0); Mean Corpuscular Hemoglobin 30.6 pg (27.0-31.0); Mean Corpuscular Volume 95.5 fL (78.0-98.0); Platelet Count 185 thou/uL (130-400); RBC Distribution Width 11.7 % (11.5-14.5); Red Blood Cell (RBC) Count 3.44 mill/uL (4.20-5.40); White Blood Cell (WBC) Count 10.2 thou/uL (4.8-10.8)
[2019-07-16] MEDS ORDERED: Albuterol 200 PUFF (6.7GM INHALER) ONE (13:52)
[2019-07-16 13:58] LABS: ALT (SGPT) 11 U/L (8-55); AST (SGOT) 14 U/L (5-34); Albumin 3.9 g/dL (3.4-4.8); Alkaline Phosphatase 90 U/L (40-110); Anion Gap 12 mmol/L (10-20); BUN (Urea Nitrogen) 24 mg/dL (9.8-20.1); Bilirubin, Total 0.4 mg/dL (0.2-1.2); Calc. Creatinine Clearance 0 mL/min (70-130); Calcium 9.4 mg/dL (7.8-10.44); Carbon Dioxide 29 mmol/L (23-31); Chloride 104 mmol/L (98-107); Estimated GFR-MDRD 56; Glucose 118 mg/dL (83-110); Potassium 3.9 mmol/L (3.5-5.1); Protein, Total 6.9 g/dL (6.0-8.3); Sodium 141 mmol/L (136-145)
--- NOTE | 2019-07-16 14:07 | RAD ---
CHEST 1 VIEW: HISTORY: Weakness for 1 week. COMPARISON: 02/11/2018. FINDINGS: Heart size is minimally enlarged. There is mild bilateral vascular congestion. No confluent pneumon ia, overt edema, or confluent pneumonia. IMPRESSION: No significant active intrathoracic disease. POS: RRE
[2019-07-16 15:04] LABS: Bilirubin Negative (Negative); Blood, Urine Negative (Negative); Clarity Turbid (Clear); Glucose, Urine (Dipstick) Normal (Negative); Leukocyte 250 Leu/uL (Negative); Nitrite Negative (Negative); Protein, Urine (Dipstick) 70 mg/dL (Neg-Trace); RBC/HPF 0-3 HPF (0-3); Squamous Epithelial Greater than 50 HPF (0-3); Urobilinogen Normal mg/dL (Less than 2)
[2019-07-16 15:15] LABS: Bacteria/HPF 2+ HPF (None Seen)
--- NOTE | 2019-07-16 15:45 | PDOC.FPRHP ---
- History of Present Illness Chief Complaint: SOB History of Present Illness: This is a 79 yo female with a pmh of HTN, HLD, CAD, previous CVA, hypothyroidism , nephrectomy, chronic pain who presnts to the ER with a cc of SOB, cough, and aches. She states it started 3-4 days ago. She reports associated muscle aches, sore throat, sinus congestion. She states she was with her daughter and they checked her oxygen and found to be in the low 90s even with 4L of o2. She denies leaving the house but she has nurses that come as well as her daughter and her friend. She reports she has never smoked but her did. She believes she had a sinus infection about one month ago and took OTC meds for it at that time and it resolved spontaneously She states she uses a walker and O2 2L nc at baseline She also uses an albuterol neb for her symptoms. Her daughter made her use it because she was having trouble breathing when she is moving around. ED Course: rocephin 2g Proventil HFA 4 inhalations - Allergies/Adverse Reactions Allergies Allergy/AdvReac Type Severity Reaction Status Date / Time amoxicillin trihydrate Allergy severe Verified 07/16/19 18:39 [From Augmentin] yeast infection potassium clavulanate Allergy severe Verified 07/16/19 18:39 [From Augmentin] yeast infection sulfisoxazole AdvReac Severe Nausea Verified 07/16/19 18:39 [From Gantrisin] - Home Medications Medication Instructions Recorded Confirmed Type Amitriptyline HCl [Elavil] 100 mg PO HS 04/27/13 07/16/19 History Clopidogrel Bisulfate [Plavix] 75 mg PO DAILY 04/27/13 07/16/19 History Fenofibrate [Tricor] 1 tab PO QPM 12/17/14 07/16/19 History busPIRone HCl [Buspirone HCl] 1 tab PO TID 12/17/14 07/16/19 History Furosemide [Lasix] 20 mg PO DAILY PRN 12/18/14 07/16/19 History Levothyroxine Sodium [Synthroid] 75 mcg PO DAILY 12/18/14 07/16/19 History Cholecalciferol (Vitamin D3) 5,000 unit PO DAILY 08/16/15 07/16/19 History [Vitamin D3] Pantoprazole [Protonix] 40 mg PO BID 01/30/16 07/16/19 History FLUoxetine HCl [Prozac] 60 mg PO DAILY 08/13/17 07/16/19 History Gabapentin 200 mg PO BID 08/13/17 07/16/19 History clonazePAM 1 tab PO HS 08/13/17 07/16/19 History Fluticasone Propionate [Flonase 1 spray EA NARE BID PRN 02/11/18 07/16/19 History Nasal [place]] [place]-3 Fatty Acids/Fish Oil [Fish 1 cap PO DAILY 02/11/18 07/16/19 History Oil 1,000 mg Capsule] Aspirin [Ecotrin] 81 mg PO DAILY 04/30/19 07/16/19 History Atorvastatin Calcium 40 mg PO DAILY 04/30/19 07/16/19 History Carvedilol 1 tab PO BID 04/30/19 07/16/19 History Ubidecarenone [CoQ-10] 100 mg PO DAILY 04/30/19 07/16/19 History Lisinopril 10 mg PO DAILY 07/16/19 07/16/19 History - History PMHx: COPD, anxiety, HTN, hypothyroidism depression, neuropathy, HLD, CAD, one kidney PSHx: multiple back surgeries, shoulder surgies, knee replacements, lapband, neck surgery FHx: Brother lung cancer, mother HTN and heart condition at 58 Social: Denies BELKIS, long time second hand smoke exposure - Review of Systems General: reports: fever/chills, fatigue. denies: weight/appetite/sleep changes , night sweats Eyes: denies: eye pain, vision changes ENT: reports: nasal congestion, rhinorrhea Respiratory: reports: cough, shortness of breath, exercise intolerance. denies : congestion Cardiovascular: denies: chest pain, palpitation, edema, paroxysmal nocturnal dyspnea, orthopnea Gastrointestinal: denies: nausea, vomiting, diarrhea, constipation, abdominal pain, GI bleeding Genitourinary: reports: incontinence, dysuria Skin: denies: rashes, lesions, jaundice Musculoskeletal: reports: pain (Neck and back pain) Neurological: reports: weakness (generalized). denies: numbness, syncope, seizure Psychological: denies: anxiety, depression - Vital signs BP: 151/85 HR: 67 RR: 20 Tmax: 98.8 Pox: 96% on 2L nc Wt: 103kg - Physical Exam Constitutional: NAD, awake, alert and oriented, well developed, other (Does not appear to be in respiratory distress, talked in complete sentences) HEENT: normocephalic and atraumatic, EOMI, MMM Neck: trachea midline, no JVD Chest: no-tender to palpation, no lesions Heart: RRR, normal S1/S2, no murmurs/rubs/gallops Lungs: other (Mild wheezing, no crackles or rhonchi) Abdomen: soft, no masses/distention, no hernias, other (mild diffuse ttp) Musculoskeletal: normal structure, normal tone Neurological: CN II-XII intact, normal sensation Skin: good turgor, capillary refill <2 seconds Heme/Lymphatic: no unusual bruising or bleeding Psychiatric: normal mood and affect, good judgment and insight FMR H&P: Results - Labs Result Diagrams: 07/17/19 04:50 07/17/19 04:49 Lab results: WBC 10.2 thou/uL (4.8-10.8) 07/16/19 13:15 Hgb 10.6 g/dL (12.0-16.0) L 07/16/19 13:15 Hct 32.9 % (36.0-47.0) L 07/16/19 13:15 MCV 95.5 fL (78.0-98.0) 07/16/19 13:15 Plt Count 185 thou/uL (130-400) 07/16/19 13:15 Neutrophils % 79.5 % (42.0-75.0) H 07/16/19 13:15 Sodium 141 mmol/L (136-145) 07/16/19 13:15 Potassium 3.9 mmol/L (3.5-5.1) 07/16/19 13:15 Chloride 104 mmol/L (98-107) 07/16/19 13:15 Carbon Dioxide 29 mmol/L (23-31) 07/16/19 13:15 BUN 24 mg/dL (9.8-20.1) H 07/16/19 13:15 Creatinine 0.96 mg/dL (0.6-1.1) 07/16/19 13:15 Glucose 118 mg/dL (83-110) H 07/16/19 13:15 Lactic Acid 0.7 mmol/L (0.5-2.2) 07/16/19 14:21 Calcium 9.4 mg/dL (7.8-10.44) 07/16/19 13:15 Total Bilirubin 0.4 mg/dL (0.2-1.2) 07/16/19 13:15 AST 14 U/L (5-34) 07/16/19 13:15 ALT 11 U/L (8-55) 07/16/19 13:15 Alkaline Phosphatase 90 U/L (40-110) 07/16/19 13:15 B-Natriuretic Peptide 214.6 pg/mL (0-100) H 07/16/19 13:15 Serum Total Protein 6.9 g/dL (6.0-8.3) 07/16/19 13:15 Albumin 3.9 g/dL (3.4-4.8) 07/16/19 13:15 Urine Ketones Negative mg/dL (Negative) 07/16/19 14:25 Urine Blood Negative (Negative) 07/16/19 14:25 Urine Nitrite Negative (Negative) 07/16/19 14:25 Ur Leukocyte Esterase 250 Chloe/uL (Negative) A 07/16/19 14:25 Urine RBC 0-3 HPF (0-3) 07/16/19 14:25 Urine WBC 11-20 HPF (0-3) A 07/16/19 14:25 Ur Squamous Epith Cells Greater than 50 HPF (0-3) A 07/16/19 14:25 Urine Bacteria 2+ HPF (None Seen) A 07/16/19 14:25 - Radiology Interpretation Chest x-ray Status: image reviewed by me, report reviewed by me (No significant active intrathroacic disease) FMR H&P: A/P - Problem List (1) CHF (congestive heart failure) Current Visit: No Status: Chronic Code(s): I50.9 - HEART FAILURE, UNSPECIFIED (2) CKD (chronic kidney disease) Current Visit: No Status: Chronic Code(s): N18.9 - CHRONIC KIDNEY DISEASE, UNSPECIFIED (3) GERD (gastroesophageal reflux disease) Current Visit: No Status: Chronic Code(s): K21.9 - GASTRO-ESOPHAGEAL REFLUX DISEASE WITHOUT ESOPHAGITIS (4) Generalized anxiety disorder Current Visit: No Status: Chronic Code(s): F41.1 - GENERALIZED ANXIETY DISORDER (5) History of nephrectomy, unilateral Current Visit: No Status: Chronic Code(s): Z90.5 - ACQUIRED ABSENCE OF KIDNEY (6) Hypertension Current Visit: No Status: Chronic Code(s): I10 - ESSENTIAL (PRIMARY) HYPERTENSION (7) Hypothyroidism Current Visit: No Status: Chronic Code(s): E03.9 - HYPOTHYROIDISM, UNSPECIFIED - Plan This is a 79 yo female with a pmh of COPD on 2-3L, CKD w/L nephrecomy, hypothyroidism, HTN, HLD, HFpEF Acute on chronic hypoxic respiratory failure likely 2/2 COPD exacerbation -Admit to tele -Covid-19 lab pending -Steroids, duonebs jenny/prn, doxycycline -CXR shows mild vascular congestion -Respiratory support -Pending procal HFpEF -Slightly bumped BNP likely reflects COPD exacerbation -Continue home meds Hypothyroidism -Continue home levothyroxine CKD 3, appears stable HTN -Continue home meds HLD -Continue home meds Code: DNAR Prophylaxis: lovenox Family: None at bedside Fluids: SL Diet: HH Disposition: DC in 2-3 days PCP: Dr. Wheeler TAMP A/P - Problem (1) CHF (congestive heart failure) Current Visit: No Code(s): I50.9 - HEART FAILURE, UNSPECIFIED Status: Chronic (2) CKD (chronic kidney disease) Current Visit: No Code(s): N18.9 - CHRONIC KIDNEY DISEASE, UNSPECIFIED Status: Chronic (3) GERD (gastroesophageal reflux disease) Current Visit: No Code(s): K21.9 - GASTRO-ESOPHAGEAL REFLUX DISEASE WITHOUT ESOPHAGITIS Status: Chronic (4) Generalized anxiety disorder Current Visit: No Code(s): F41.1 - GENERALIZED ANXIETY DISORDER Status: Chronic (5) History of nephrectomy, unilateral Current Visit: No Code(s): Z90.5 - ACQUIRED ABSENCE OF KIDNEY Status: Chronic (6) Hypertension Current Visit: No Code(s): I10 - ESSENTIAL (PRIMARY) HYPERTENSION Status: Chronic (7) Hypothyroidism Current Visit: No Code(s): E03.9 - HYPOTHYROIDISM, UNSPECIFIED Status: Chronic Addendum - Attending - Attending Attestation Date/Time: 07/17/19 0811 I personally evaluated the patient and discussed the management with Dr. Orozco. I agree with the History, Examination, Assessment and Plan documented above with any addition or exceptions noted below.
[2019-07-16] MEDS ORDERED: cefTRIAXone\\ROCEPHIN 2 GM VIAL ONE (15:52)
[2019-07-16 17:06] LABS: Troponin I Less than 0.010 ng/mL (< 0.028)
[2019-07-16] MEDS ORDERED: Albuterol 200 PUFF (6.7GM INHALER) INH PRN ×2 (17:45→18:26)
[2019-07-16] MEDS ORDERED: Ondansetron ODT 4 MG TAB PO PRN (17:51)
[2019-07-16] MEDS ORDERED: Ondansetron PF 4 MG/2 ML Vial IVP PRN (17:51)
[2019-07-16] MEDS ORDERED: Albuterol 200 PUFF (6.7GM INHALER) INH SCH (19:00)
[2019-07-16 19:11] VITALS: BMI 40.6
[2019-07-16] MEDS: Doxycycline 100 MG CAP PO SCH (19:49)
[2019-07-16] MEDS: Gabapentin 100 MG CAP PO SCH (19:49)
[2019-07-16] MEDS: Amitriptyline HCl 100 MG TAB PO SCH (19:49)
[2019-07-16] MEDS: busPIRone HCl 10 MG TAB PO SCH (19:50)
[2019-07-16] MEDS: Fenofibrate Nanocrystallized 145 MG TAB PO SCH (19:50)
[2019-07-16] MEDS: clonazePAM 0.5 MG TAB PO SCH (19:50)
[2019-07-16 20:11] LABS: Troponin I Less than 0.010 ng/mL (< 0.028)
[2019-07-16] MEDS ORDERED: Carvedilol 25 MG TAB PO SCH (21:00)
[2019-07-16] MEDS: Acetaminophen 500 MG TAB PO PRN (22:34)
[2019-07-16] MEDS: ALBUTEROL SULFATE INH PRN (22:42)
[2019-07-17] MEDS: ALBUTEROL SULFATE INH SCH ×4 (01:38→18:02)
[2019-07-17 05:10] LABS: #Eosinphils 0.2 thou/uL (0.0-0.7); #Lymphocytes 1.2 thou/uL (1.20-3.40); #Monocytes 0.7 thou/uL (0.11-0.59); #Neutrophils 5.9 thou/uL (1.40-6.50); %Basophils 0.6 % (0.0-1.0); %Eosinophils 2.3 % (0.0-10.0); %Lymphocytes 15.2 % (21.0-51.0); %Monocytes 8.7 % (0.0-10.0); %Neutrophils 73.2 % (42.0-75.0); Hemoglobin 10.1 g/dL (12.0-16.0); Mean Corpuscular HGB CONC 31.5 g/dL (32.0-36.0); Mean Corpuscular Hemoglobin 30.2 pg (27.0-31.0); Mean Corpuscular Volume 95.7 fL (78.0-98.0); Platelet Count 195 thou/uL (130-400); RBC Distribution Width 11.7 % (11.5-14.5); Red Blood Cell (RBC) Count 3.35 mill/uL (4.20-5.40)
[2019-07-17 05:32] LABS: ALT (SGPT) 9 U/L (8-55); AST (SGOT) 12 U/L (5-34); Albumin 3.6 g/dL (3.4-4.8); Alkaline Phosphatase 85 U/L (40-110); Anion Gap 13 mmol/L (10-20); BUN (Urea Nitrogen) 17 mg/dL (9.8-20.1); Bilirubin, Total 0.3 mg/dL (0.2-1.2); Calc. Creatinine Clearance 88 mL/min (70-130); Calcium 9.2 mg/dL (7.8-10.44); Carbon Dioxide 28 mmol/L (23-31); Chloride 104 mmol/L (98-107); Estimated GFR-MDRD 65; Glucose 126 mg/dL (83-110); Potassium 3.8 mmol/L (3.5-5.1); Protein, Total 6.6 g/dL (6.0-8.3); Sodium 141 mmol/L (136-145)
[2019-07-17] MEDS: Levothyroxine Sodium 75 MCG TAB PO SCH (05:44)
--- NOTE | 2019-07-17 07:11 | PDOC.FM ---
- Subjective Subjective: Pt states she is still having a headache as well as aches all over. She does report her breathing is improved some. She states she is coughing less but she does have occasional fits. - Objective MAR Reviewed: Yes Vital Signs & Weight: Vital Signs (12 hours) Temp Pulse Resp BP Pulse Ox 07/17/19 04:47 98.4 F 70 17 119/59 L 91 L 07/17/19 01:26 93 L 07/16/19 23:10 96.9 F L 80 20 142/61 H 95 07/16/19 19:58 96.8 F L 69 17 162/73 H 98 Weight Weight 104.009 kg I&O: 07/16/19 07/17/19 07/18/19 06:59 06:59 06:59 Intake Total 580 Output Total 125 Balance 455 Result Diagrams: 07/17/19 04:50 07/17/19 04:49 Phys Exam - Physical Examination Constitutional: NAD dry mm Neck: no JVD Improving breath sounds with some diffuse wheezing Cardiovascular: RRR, no significant murmur Gastrointestinal: soft, no distention Musculoskeletal: no edema, pulses present Neurological: moves all 4 limbs Skin: cap refill <2 seconds Dx/Plan (1) CHF (congestive heart failure) Code(s): I50.9 - HEART FAILURE, UNSPECIFIED Status: Chronic (2) CKD (chronic kidney disease) Code(s): N18.9 - CHRONIC KIDNEY DISEASE, UNSPECIFIED Status: Chronic (3) GERD (gastroesophageal reflux disease) Code(s): K21.9 - GASTRO-ESOPHAGEAL REFLUX DISEASE WITHOUT ESOPHAGITIS Status: Chronic (4) Generalized anxiety disorder Code(s): F41.1 - GENERALIZED ANXIETY DISORDER Status: Chronic (5) History of nephrectomy, unilateral Code(s): Z90.5 - ACQUIRED ABSENCE OF KIDNEY Status: Chronic (6) Hypertension Code(s): I10 - ESSENTIAL (PRIMARY) HYPERTENSION Status: Chronic (7) Hypothyroidism Code(s): E03.9 - HYPOTHYROIDISM, UNSPECIFIED Status: Chronic - Plan Plan: This is a 79 yo female with a pmh of COPD on 2-3L, CKD w/L nephrecomy, hypothyroidism, HTN, HLD, HFpEF Acute on chronic hypoxic respiratory failure likely 2/2 COPD exacerbation -Covid-19 lab pending -Steroids, duonebs jenny/prn, doxycycline -CXR shows mild vascular congestion -Respiratory support -Procal negative, consider stopping doxycycline -Pending RVP HFpEF -Slightly bumped BNP likely reflects COPD exacerbation -Continue home meds Hypothyroidism -Continue home levothyroxine CKD 3, appears stable HTN -Continue home meds HLD -Continue home meds UTI -Likely dirty urine, however continue rocephin until cultures result Addendum - Attending - Attending Attestation Date/Time: 07/17/19 1350 I personally evaluated the patient and discussed the management with Dr. Orozco. I agree with the History, Examination, Assessment and Plan documented above with any addition or exceptions noted below. slowly improving. COVID pending. treat headache today.
[2019-07-17] MEDS: busPIRone HCl 10 MG TAB PO SCH ×3 (09:57→20:26)
[2019-07-17] MEDS: Aspirin 81 mg Enteric Coated Tablet PO SCH (09:57)
[2019-07-17] MEDS: Fish Oil 1,000 MG CAP PO SCH (09:58)
[2019-07-17] MEDS: Carvedilol 25 MG TAB PO SCH ×2 (09:58→17:44)
[2019-07-17] MEDS: Ubidecarenone 50 MG CAP PO SCH (09:58)
[2019-07-17] MEDS: Lisinopril 10 MG TAB PO SCH (09:59)
[2019-07-17] MEDS: Doxycycline 100 MG CAP PO SCH ×2 (09:59→20:26)
[2019-07-17] MEDS: FLUoxetine HCl 20 MG CAP PO SCH (09:59)
[2019-07-17] MEDS: Gabapentin 100 MG CAP PO SCH ×2 (09:59→20:25)
[2019-07-17] MEDS: predniSONE 20 MG TAB PO SCH (09:59)
[2019-07-17] MEDS: Clopidogrel Bisulfate 75 MG TAB PO SCH (10:00)
[2019-07-17] MEDS: Enoxaparin Sodium 40 MG/0.4 ML SYRINGE SC SCH (10:00)
[2019-07-17] MEDS: Furosemide 20 MG TAB PO SCH (10:00)
[2019-07-17] MEDS: Atorvastatin Calcium 40 MG TAB PO SCH (10:01)
[2019-07-17] MEDS: Acetaminophen 500 MG TAB PO PRN (10:05)
[2019-07-17] MEDS ORDERED: Lactated Ringer's 500 ML IV SCH (13:00)
[2019-07-17] MEDS ORDERED: Ketorolac Tromethamine 30 MG/ML VIAL IVP SCH (13:00)
[2019-07-17] MEDS: cefTRIAXone\\ROCEPHIN 1 GM in Sodium Chloride 0.9% 100 ML IVPB SCH (17:44)
[2019-07-17] MEDS: Fenofibrate Nanocrystallized 145 MG TAB PO SCH (20:26)
[2019-07-17] MEDS: Amitriptyline HCl 100 MG TAB PO SCH (20:26)
[2019-07-17] MEDS: clonazePAM 0.5 MG TAB PO SCH (20:26)
[2019-07-17] MEDS: Ketorolac Tromethamine 30 MG/ML VIAL IVP PRN (21:49)
[2019-07-17] MEDS: ALBUTEROL SULFATE INH PRN (21:55)
[2019-07-18] MEDS: ALBUTEROL SULFATE INH SCH ×3 (00:13→16:43)
[2019-07-18] MEDS: Acetaminophen 500 MG TAB PO PRN (01:22)
[2019-07-18] MEDS: Levothyroxine Sodium 75 MCG TAB PO SCH (04:42)
--- NOTE | 2019-07-18 06:42 | PDOC.FM ---
- Subjective Subjective: Pt states that her breathing is improved. She states her head is still bothering her. The medications have helped some. She seems willing to go home but has a negative air about her. - Objective MAR Reviewed: Yes Vital Signs & Weight: Vital Signs (12 hours) Temp Pulse Resp BP Pulse Ox 07/18/19 04:53 96.3 F L 69 18 158/70 H 96 07/18/19 00:17 96.5 F L 73 20 143/65 H 94 L 07/17/19 20:30 95.5 F L 74 20 165/72 H 94 L Weight Admit Weight 104.009 kg Weight 104.236 kg I&O: 07/16/19 07/17/19 07/18/19 06:59 06:59 06:59 Intake Total 580 621 Output Total 125 500 Balance 455 121 Result Diagrams: 07/17/19 04:50 07/17/19 04:49 Phys Exam - Physical Examination Constitutional: NAD HEENT: moist MMs Neck: no JVD, full ROM Respiratory: no wheezing, no rhonchi, clear to auscultation bilateral Cardiovascular: RRR, no significant murmur Gastrointestinal: soft, no distention Musculoskeletal: no edema, pulses present Neurological: moves all 4 limbs Psychiatric: A&O x 3 Deviation from normal: Negative disposition Skin: cap refill <2 seconds Dx/Plan (1) CHF (congestive heart failure) Code(s): I50.9 - HEART FAILURE, UNSPECIFIED Status: Chronic (2) CKD (chronic kidney disease) Code(s): N18.9 - CHRONIC KIDNEY DISEASE, UNSPECIFIED Status: Chronic (3) GERD (gastroesophageal reflux disease) Code(s): K21.9 - GASTRO-ESOPHAGEAL REFLUX DISEASE WITHOUT ESOPHAGITIS Status: Chronic (4) Generalized anxiety disorder Code(s): F41.1 - GENERALIZED ANXIETY DISORDER Status: Chronic (5) History of nephrectomy, unilateral Code(s): Z90.5 - ACQUIRED ABSENCE OF KIDNEY Status: Chronic (6) Hypertension Code(s): I10 - ESSENTIAL (PRIMARY) HYPERTENSION Status: Chronic (7) Hypothyroidism Code(s): E03.9 - HYPOTHYROIDISM, UNSPECIFIED Status: Chronic - Plan Plan: This is a 79 yo female with a pmh of COPD on 2-3L, CKD w/L nephrecomy, hypothyroidism, HTN, HLD, HFpEF Acute on chronic hypoxic respiratory failure likely 2/2 COPD exacerbation -Covid-19 lab pending -Steroids, duonebs jenny/prn, doxycycline -CXR shows mild vascular congestion -Respiratory support -Procal negative -RVP negative HFpEF -Slightly bumped BNP likely reflects COPD exacerbation -Continue home meds Hypothyroidism -Continue home levothyroxine CKD 3, appears stable HTN -Continue home meds HLD -Continue home meds UTI -Likely dirty urine, however continue rocephin until cultures result Possible DC this afternoon if feeling better. O2 requirement is at baseline. Addendum - Attending - Attending Attestation Date/Time: 07/18/19 1316 I personally evaluated the patient and discussed the management with Dr. Orozco. I agree with the History, Examination, Assessment and Plan documented above with any addition or exceptions noted below. Breathing near baseline. Still has headache. repeat toradol and add reglan. possible d/c this afternoon.
[2019-07-18] MEDS: FLUoxetine HCl 20 MG CAP PO SCH (09:24)
[2019-07-18] MEDS: Doxycycline 100 MG CAP PO SCH (09:24)
[2019-07-18] MEDS: Carvedilol 25 MG TAB PO SCH ×2 (09:25→16:43)
[2019-07-18] MEDS: Fish Oil 1,000 MG CAP PO SCH (09:25)
[2019-07-18] MEDS: Aspirin 81 mg Enteric Coated Tablet PO SCH (09:25)
[2019-07-18] MEDS: Atorvastatin Calcium 40 MG TAB PO SCH (09:25)
[2019-07-18] MEDS: Furosemide 20 MG TAB PO SCH (09:25)
[2019-07-18] MEDS: Ubidecarenone 50 MG CAP PO SCH (09:25)
[2019-07-18] MEDS: Gabapentin 100 MG CAP PO SCH (09:25)
[2019-07-18] MEDS: Clopidogrel Bisulfate 75 MG TAB PO SCH (09:25)
[2019-07-18] MEDS: busPIRone HCl 10 MG TAB PO SCH ×2 (09:25→14:51)
[2019-07-18] MEDS: Lisinopril 10 MG TAB PO SCH (09:26)
[2019-07-18] MEDS: Enoxaparin Sodium 40 MG/0.4 ML SYRINGE SC SCH (09:26)
[2019-07-18] MEDS: predniSONE 20 MG TAB PO SCH (09:26)
[2019-07-18] MEDS ORDERED: Metoclopramide HCl 10 MG/2 ML VIAL IVP SCH (11:30)
[2019-07-18] MEDS: Ketorolac Tromethamine 30 MG/ML VIAL IVP PRN (11:44)
[2019-07-18 12:01] VITALS: BP 148/66; TEMP 96.3
[2019-07-18] MEDS: cefTRIAXone\\ROCEPHIN 1 GM in Sodium Chloride 0.9% 100 ML IVPB SCH (16:45)
--- NOTE | 2019-07-20 04:02 | PQF ---
DONNA OWUSU MAE CAINKAYCE [id number] [address] [place] [address] [id number] CLINICAL DOCUMENTATION CLARIFICATION FORM: POST DISCHARGE Addendum to original discharge summary date: ____ Late entry note date: __ DATE:07/19/2019 ATTN: Kayce Calles Please exercise your independent, professional judgment in responding to the clarification form. Clinical indicators are provided on the bottom of this form for your review Please check appropriate box(s): DIASTOLIC HEART FAILURE: ACUITY [ ] Acute [ ] Acute on Chronic [ x ] Chronic [ ] Other diagnosis [ ] Unable to determine For continuity of documentation, please document condition throughout progress notes and discharge summary. Thank You. CLINICAL INDICATORS - SIGNS / SYMPTOMS / LABS Laboratory 07/15 BNP 214.6, troppnin 0.010 Chesr X-ray 07/15 Impression There is mild bilateral vascular congestion Vital signs 07/15 BP 151/85, Pulse 67, Resp 20, Temp 98.8 H&P p1 07/15 Dr Chaney presents to ER with CC of SOB, cough and aches H&P p5 07/15 Dr Chaney HFpEF slightly bumped BNP likely reflects COPD exacerbation PN p2 07/17 Dr. Orozco no JVD PN p2 07/17 Dr. Orozco no edema RISKS: H&P p1 07/15 -79 year-old Female H&P p1 07/15 -CAD H&P p1 07/15 -HTN H&P p1 07/15 -HLD H&P p1 07/15 -Hypothyroidism H&P p1 07/15 hx of CVA H&P p1 07/15 s/p Nephrectomy H&P p5 07/15 - Acute on Chronic hypoxic Respiratory Failure 2/2 COPD exacerbation H&P p5 07/15 -CKD 3 TREATMENTS: MAR 07/16 Lasix 20mg Oral Mar 07/16 Plavix 75 mg Oral Mar 07/16 Aspirin 81 mg Oral Chest xray 07/15 Respiratory panel Oxygen 2L MAR 07/16 Lipitor 40mg Oral (This form is maintained as a part of the permanent medical record) 2014 [employer]. All Rights Reserved [email or web address]
--- NOTE | 2019-07-22 15:18 | EKG ---
Test Reason : Blood Pressure : / mmHG Vent. Rate : 066 BPM Atrial Rate : 066 BPM P-R Int : 174 ms QRS Dur : 076 ms QT Int : 444 ms P-R-T Axes : 058 -03 049 degrees QTc Int : 465 ms Sinus rhythm with Premature atrial complexes T wave abnormality, consider anterior ischemia Prolonged QT No STEMI Abnormal ECG Confirmed by MICHAEL FISCHER M.D. ([id number]), supervising film or videotape editor CHUY GUTIERREZ ([id number]) on 07/22/2019 3:18:24 PM Referred By: Confirmed By:MICHAEL FISCHER M.D.
== END 2019-07-18 18:25 | disposition home health service (06) | DRG 189 ==
LOC: ERS 12:38 → 2SW 15:31 → OBSVTOIN 17:51
PROVIDERS: ADMIT Family Medicine; ATTEND Family Medicine
PROC: 8E0ZXY6 Isolation (ICD-10-PCS; principal; 2019-07-16)
DX: J96.21 Acute and chronic respiratory failure with hypoxia (principal); J44.1 Chronic obstructive pulmonary disease with (acute) exacerbation; I50.32 Chronic diastolic (congestive) heart failure; I13.0 Hypertensive heart and chronic kidney disease with heart failure and stage 1 through stage 4 chronic kidney disease, or unspecified chronic kidney disease; N39.0 Urinary tract infection, site not specified; Z20.828 Contact with and (suspected) exposure to other viral communicable diseases; F41.1 Generalized anxiety disorder; E03.9 Hypothyroidism, unspecified; N18.3 Chronic kidney disease, stage 3 (moderate); E78.5 Hyperlipidemia, unspecified; F32.9 Major depressive disorder, single episode, unspecified; I25.10 Atherosclerotic heart disease of native coronary artery without angina pectoris; Z96.659 Presence of unspecified artificial knee joint; G89.29 Other chronic pain; Z90.5 Acquired absence of kidney; Z88.2 Allergy status to sulfonamides; Z79.899 Other long term (current) drug therapy; Z79.51 Long term (current) use of inhaled steroids; Z79.890 Hormone replacement therapy; Z79.82 Long term (current) use of aspirin; Z79.02 Long term (current) use of antithrombotics/antiplatelets; Z88.1 Allergy status to other antibiotic agents; Z99.81 Dependence on supplemental oxygen; Z86.73 Personal history of transient ischemic attack (TIA), and cerebral infarction without residual deficits
CPT/HCPCS: 36415; 51701; 71045; 80053; 81003; 81015; 83605; 83735; 83880; 84145; 84484; 85025; 87040; 87086; 87633; 87635; 87804; 93005; 96365; A4353; J0696; J1650; J1885; J2765; J3490; J7512; Q0162; U0002

== ENCOUNTER 2020-02-19 15:08 | Inpatient (IN) | payer MEDICARE, MEDICAID ==
[~2020-02-19 15:08] MED LIST: Iopamidol-370 76% 500 ML 1 ML ONE
[2020-02-19] MEDS ORDERED: Dexamethasone 10 MG/ML VIAL ONE (16:27)
--- NOTE | 2020-02-19 16:32 | RAD ---
PORTABLE CHEST: 02/19/20 PROVIDED CLINICAL HISTORY: Chest pain. FINDINGS: Comparison 07/16/19. The cardiac and mediastinal silhouette is within normal limits. No focal consolidation, pleural fluid , or pneumothorax apparent. IMPRESSION: No evidence for an acute cardiopulmonary process. POS: FELIPE
[2020-02-19 16:39] LABS: Actual Bicarbonate (HCO3a) 28.4 mEq/L (22-28); Analyzer IN Cardio ER; CO2 Tension 41.7 mmHg (35.0-45.0); Calcium, Ionized (arterial) 1.18 mmol/L (1.12-1.30); Carboxyhemoglobin (COHb) 0.6 gm% (0.0-3.0); Hemoglobin (Hb) 12.1 g/dL (12.0-16.0); O2 Tension (PaO2), arterial 66.3 mmHg (> 60.0); Potassium - ABG Lab 3.67 mmol/L (3.70-5.30); pH, Arterial 7.45 (7.35-7.45)
[2020-02-19 16:43] LABS: Puncture Site RBA
[2020-02-19 16:44] LABS: ALV-art Gradient 31.305 mmHg (0-20)
[2020-02-19 17:26] LABS: #Eosinphils 0.2 thou/uL (0.0-0.7); #Lymphocytes 1.7 thou/uL (1.20-3.40); #Monocytes 0.5 thou/uL (0.11-0.59); #Neutrophils 4.7 thou/uL (1.40-6.50); %Basophils 0.3 % (0.0-1.0); %Eosinophils 2.5 % (0.0-10.0); %Lymphocytes 23.3 % (21.0-51.0); %Monocytes 6.9 % (0.0-10.0); %Neutrophils 66.9 % (42.0-75.0); Hemoglobin 11.4 g/dL (12.0-16.0); Mean Corpuscular HGB CONC 32.5 g/dL (32.0-36.0); Mean Corpuscular Hemoglobin 30.5 pg (27.0-31.0); Mean Platelet Volume 8.3 fL (7.4-10.4); Platelet Count 215 thou/uL (130-400); RBC Distribution Width 11.8 % (11.5-14.5); Red Blood Cell (RBC) Count 3.75 mill/uL (4.20-5.40); White Blood Cell (WBC) Count 7.1 thou/uL (4.8-10.8)
[2020-02-19 17:50] LABS: ALT (SGPT) Less than 7 U/L (8-55); AST (SGOT) 14 U/L (5-34); Albumin 4.5 g/dL (3.4-4.8); Alkaline Phosphatase 87 U/L (40-110); Anion Gap 18 mmol/L (10-20); BUN (Urea Nitrogen) 30 mg/dL (9.8-20.1); Bilirubin, Total 0.5 mg/dL (0.2-1.2); CK (CPK) 44 U/L (29-168); Calc. Creatinine Clearance 0 mL/min (70-130); Calcium 9.7 mg/dL (7.8-10.44); Carbon Dioxide 30 mmol/L (23-31); Chloride 102 mmol/L (98-107); Estimated GFR-MDRD 44; Globulin 2.8 g/dL (2.4-3.5); Glucose 85 mg/dL (83-110); Lipase 103 U/L (8-78); Potassium 3.8 mmol/L (3.5-5.1); Protein, Total 7.3 g/dL (6.0-8.3); Sodium 146 mmol/L (136-145)
[2020-02-19] MEDS ORDERED: Morphine 4 MG/ML VIAL ONE (19:30)
--- NOTE | 2020-02-19 20:52 | PDOC.FPRHP ---
- History of Present Illness Chief Complaint: chest pain History of Present Illness: 80 y/o F with extensive PMHx including COPD, HFpEF, chronic resp failure on home O2, hx CVA with R sided deficits who presents with multiple medical complaints. Reports pressure-like chest pain with radiation to the back over the past 1 week with associated SOB and diaphoresis. Pain occurs during the day and throughout the night. On 3L NC at baseline, increased to 4L due to worsening SOB. Also endorsing 6 lb weight gain, increased anxiety, orthopnea that is unchanged from baseline. Additional complaint of R sided low back pain wrapping around her abdomen, states it feels similar to when she had kidney stones in the past. Had nephrectomy due to complicated kidney stones in past. Denies dysuria, hematuria. Endorses sensation of abdominal fullness. Additional complaints include: decreased PO intake, increased bilateral neuropathic foot pain, burning skin pain over neck. Has had shingles in the past, unsure if similar to past shingles infection. No known sick/COVID contacts. Has not been out of house, but multiple family members have been coming into the home. Talked with daughter who verifies recent pain and also reports fall yesterday. Apparently patient had fall yesterday in which she was gently helped to the floor by her daughter who was with her. No obvious injury, did not hit head, no LOC. ED Course: D-dimer 1.45, CTA chest: R sided PE, s/p 1 mg/kg lovenox increased O2 requirement, stable on 3L NC rapid COVID pending, flu neg BNP 101, no fluid overload on exam R fem line placed 1L NS, 10 mg decadron, 4 mg morphine - Allergies/Adverse Reactions Allergies Allergy/AdvReac Type Severity Reaction Status Date / Time amoxicillin trihydrate Allergy severe Verified 07/16/19 18:39 [From Augmentin] yeast infection potassium clavulanate Allergy severe Verified 07/16/19 18:39 [From Augmentin] yeast infection sulfisoxazole AdvReac Severe Nausea Verified 07/16/19 18:39 [From Gantrisin] - Home Medications Medication Instructions Recorded Confirmed Type Amitriptyline HCl [Elavil] 100 mg PO HS 04/27/13 02/19/20 History Clopidogrel Bisulfate [Plavix] 75 mg PO DAILY 04/27/13 02/19/20 History Fenofibrate [Tricor] 1 tab PO QPM 12/17/14 02/19/20 History busPIRone HCl [Buspirone HCl] 1 tab PO TID 12/17/14 02/19/20 History Furosemide [Lasix] 20 mg PO DAILY PRN 12/18/14 02/19/20 History Levothyroxine Sodium [Synthroid] 75 mcg PO DAILY 12/18/14 02/19/20 History Cholecalciferol (Vitamin D3) 5,000 unit PO DAILY 08/16/15 02/19/20 History [Vitamin D3] Pantoprazole [Protonix] 40 mg PO BID 01/30/16 02/19/20 History FLUoxetine HCl [Prozac] 60 mg PO DAILY 08/13/17 02/19/20 History Gabapentin 200 mg PO BID 08/13/17 02/19/20 History clonazePAM 0.5 tab PO HS 08/13/17 02/19/20 History Fluticasone Propionate [Flonase 1 spray EA NARE BID PRN 02/11/18 02/19/20 History Nasal [place]] [place]-3 Fatty Acids/Fish Oil [Fish 1 cap PO DAILY 02/11/18 02/19/20 History Oil 1,000 mg Capsule] Aspirin [Ecotrin Low Strength] 81 mg PO DAILY 04/30/19 02/19/20 History Atorvastatin Calcium 40 mg PO DAILY 04/30/19 02/19/20 History Carvedilol 1 tab PO BID 04/30/19 02/19/20 History Ubidecarenone [CoQ-10] 100 mg PO DAILY 04/30/19 02/19/20 History Lisinopril 10 mg PO DAILY 07/16/19 02/19/20 History Albuterol Sulfate 2 puff INH Q4H PRN #1 inhaler 07/18/19 02/19/20 Rx - History PMHx: hypothyroid, GERD, HTN, hernia, COPD, renal disease, hx CVA, HFpEF, chronic resp failure on 3L NC at baseline, depression, anxiety, hx DVT PSHx: back surgery, shoulder surgery, bilateral knee replacement, neck surgery, lap band, cholecystectomy, appendectomy, nephrectomy FHx: daughter has hx of blood clots Social: denies etoh/drug/tobacco use - Review of Systems General: reports: weight/appetite/sleep changes (6 lb weight gain). denies: fever/chills Eyes: denies: eye pain, vision changes ENT: denies: rhinorrhea, other (sore throat) Respiratory: reports: cough (dry), shortness of breath, other (wheezing) Cardiovascular: reports: chest pain (radiation to back), palpitation, edema, orthopnea (that is old) Gastrointestinal: reports: diarrhea (chronic, occasional incontinence), abdominal pain. denies: nausea, vomiting, GI bleeding Genitourinary: reports: other (bladder pressure). denies: dysuria, polyuria Skin: denies: rashes Musculoskeletal: reports: pain (R low back pain, bilateral foot and leg pain), arthritis/arthralgias (toe pain) Neurological: reports: numbness (feet & legs), weakness (chronic R sided weakness), other (denies headache) Psychological: reports: anxiety, depression - Vital signs BP: 142/72, Pulse: 67, Resp: 16, Temp: 97.8 (Oral), O2 sat: 97 on 3L NC, Wt 98.8 kg - Physical Exam Constitutional: NAD, awake, alert and oriented HEENT: normocephalic and atraumatic, PERRLA, EOMI, conjunctiva clear, grossly normal hearing, oropharynx clear, good dention, other (MM dry) Neck: supple, no LAD Heart: RRR, normal S1/S2, no murmurs/rubs/gallops, pulses present, no edema Lungs: other (diffuse mild expiratory wheezing, no rhonchi) Abdomen: soft, bowel sounds present (decreased bowel sounds), other (obese, mild diffuse tenderness reported in all quadrants, no rebound or guarding. Lap band present.) Musculoskeletal: normal structure, normal tone Neurological: other (4/5 weakness BLE (R slightly weaker than L), numbness up to level of ankles bilaterally. Good rectal tone, no vulvar numbness) Skin: no rash/lesions, good turgor, capillary refill <2 seconds Heme/Lymphatic: no unusual bruising or bleeding, no purpura, no petechia Psychiatric: normal mood and affect, other (somewhat poor memory, had difficulty giving time frames for her complaints) FMR H&P: Results - Labs Result Diagrams: 02/19/20 17:16 02/19/20 17:16 Lab results: WBC 7.1 thou/uL (4.8-10.8) 02/19/20 17:16 Hgb 11.4 g/dL (12.0-16.0) L 02/19/20 17:16 Hct 35.2 % (36.0-47.0) L 02/19/20 17:16 MCV 94.0 fL (78.0-98.0) 02/19/20 17:16 Plt Count 215 thou/uL (130-400) 02/19/20 17:16 Neutrophils % 66.9 % (42.0-75.0) 02/19/20 17:16 ABG pH 7.45 (7.35-7.45) 02/19/20 16:35 ABG pCO2 41.7 mmHg (35.0-45.0) 02/19/20 16:35 ABG pO2 66.3 mmHg (> 60.0) H 02/19/20 16:35 Sodium 146 mmol/L (136-145) H 02/19/20 17:16 Potassium 3.8 mmol/L (3.5-5.1) 02/19/20 17:16 Chloride 102 mmol/L (98-107) 02/19/20 17:16 Carbon Dioxide 30 mmol/L (23-31) 02/19/20 17:16 BUN 30 mg/dL (9.8-20.1) H 02/19/20 17:16 Creatinine 1.18 mg/dL (0.6-1.1) H 02/19/20 17:16 Glucose 85 mg/dL (83-110) 02/19/20 17:16 Calcium 9.7 mg/dL (7.8-10.44) 02/19/20 17:16 Total Bilirubin 0.5 mg/dL (0.2-1.2) 02/19/20 17:16 AST 14 U/L (5-34) 02/19/20 17:16 ALT Less than 7 U/L (8-55) L 02/19/20 17:16 Alkaline Phosphatase 87 U/L (40-110) 02/19/20 17:16 Creatine Kinase 44 U/L (29-168) 02/19/20 17:16 B-Natriuretic Peptide 101.2 pg/mL (0-100) H 02/19/20 17:16 Serum Total Protein 7.3 g/dL (6.0-8.3) 02/19/20 17:16 Albumin 4.5 g/dL (3.4-4.8) 02/19/20 17:16 Lipase 103 U/L (8-78) H 02/19/20 17:16 - EKG Interpretation EKG: NSR, rate 64, borderline QTc 470 FMR H&P: A/P - Plan Acute on chronic hypoxic respiratory failure likely 2/2 pulmonary embolism vs less likely COVID-19 Increased O2 requirement. Elevated d-dimer 1.45 on admission and CTA chest with R sided PE. s/p 1 mg/kg lovenox in ED. Neg flu in ED. - f/u rapid COVID, may DC precautions if negative - will continue with 1 mg/kg lovenox BID and plan for transition to oral agent - continuous O2 monitoring and keep sats >92% - will monitor on tele, trend trops COPD Suspect respiratory symptoms related to PE rather than a COPD exacerbation. Mild wheezing on exam. - will treat with duonebs - continue to monitor and consider addition of PO steroids if symptoms not improving with tx of PE HFpEF Last echo 2014 with EF 50-55%, grade 1/3 diastolic dysfunction. No clinical signs of volume overload. Mildly elevated BNP, may be 2/2 pulmonary embolus. - hold home PRN lasix for now - no signs of overload on exam - gentle fluid resuscitation - continue to monitor respiratory status closely MINI on CKD2 Cr 1.18 on admission, baseline appears to be 0.85. Concern for possible urinary retention vs pre-renal due to decreased PO intake. CT abd/pelv without evidence of hydronephrosis. - f/u UA straight cath, consider abx and urine cx if concern for infection - gentle fluid resuscitation - bladder appears enlarged on CT abd/pelv; requested in/out cath and q4h bladder scan Bilateral leg pain Likely 2/2 chronic neuropathy although DVT is possible especially current PE. - bilateral LE dopplers to r/o DVT - lovenox for PE will also treat DVT if present - continue home gabapentin s/p fall Patient was helped to the floor. No LOC or gross deformity. Borderline QTc QTc 470 on admission EKG Normocytic anemia Hgb 11.4, MCV 94 on admission. Appears chronic on chart review. May be due to CKD. Last B12/folate wnl in 2018. - aware - consider iron studies Hypernatremia, mild Na 146 on admission. Consider possible dehydration with decreased PO intake. - gentle IV fluid resuscitation as above - monitor on AM labs Chronic problems: HTN: aware, continue home coreg, lisinopril Hypothyroid: aware, continue home levothyroxine GERD: aware, continue home protonix Hx CVA w/R sided deficits: continue home ASA, plavix Anxiety/depression: home buspar, prozac, amytryptiline HLD: home fenofibrate, atorvastatin Disposition/LOS: Dispo: admit tele, LOS > 2 midnights IVF: LR @ 75 cc/h DVT ppx: therapeutic lovenox GI ppx: home pantoprazole Diet: HH/fluid restriction Code: FULL Lines: R fem line (unable to get peripheral IV) PCP: STACEY Clemente MD PGY3 Case will be discussed with attending Dr. Raymond. FMR H&P: Upper Level - Plan Date/Time: 02/19/202048 I, [], have evaluated this patient and agree with findings/plan as outlined by dental intern resident. Pertinent changes/additions are listed here.
--- NOTE | 2020-02-19 20:52 | CT ---
CT PULMONARY ANGIOGRAM WITH IV CONTRAST AND 3DMIP RECONSTRUCTIONS: 02/19/20 PROVIDED CLINICAL HISTORY: Hypoxia. FINDINGS: There are multiple filling defects present within the right sided pulmonary arterial system compatibl e with pulmonary emboli. There is no evidence for large central embolus or evidence for RV strain. Th e lungs are free of significant opacity. There is no pleural fluid or pneumothorax apparent. The airw ay appears patent and of normal caliber. There is no evidence for thoracic lymph node enlargement. Th e osseous structures demonstrate no concerning lytic or blastic lesions. IMPRESSION: Positive for right sided pulmonary emboli. POS: FELIPE
--- NOTE | 2020-02-19 20:56 | CT ---
CT ABDOMEN AND PELVIS WITH IV CONTRAST: 02/19/20 PROVIDED CLINICAL HISTORY: Flank pain. FINDINGS: Comparison 03/16/18. The liver, spleen, pancreas, and adrenal glands appear unremarkable. The left kidney is not visualize d and presumed surgically absent. There is a stable hypodensity at the superior pole of the right kid barry compatible with cyst. The right kidney appears otherwise unremarkable. There is no bowel dilatation, inflammatory fat stranding, free fluid or free air apparent. There is n o evidence for appendicitis. Changes of gastric banding are noted. The regional major vascular struct ures appear unremarkable. The osseous structures demonstrate no concerning lytic or blastic lesions. Extensive lumbar spine postoperative change. A right femoral line is partially visualized. IMPRESSION: No evidence for an acute process. POS: FELIPE
[2020-02-19] MEDS ORDERED: Enoxaparin Sodium 100 MG/ML SYRINGE ONE (21:03)
[2020-02-19] MEDS ORDERED: Acetaminophen 325 MG TAB PO PRN (23:29)
[2020-02-19 23:51] LABS: SARS-CoV-2 NAA Rapid Test Not Detected (NotDetected)
[2020-02-20 00:04] LABS: PTT 33.6 sec (22.9-36.1); Prothrombin Time 13.3 sec (12.0-14.7)
[2020-02-20 00:12] LABS: Troponin I 0.023 ng/mL (< 0.028)
[2020-02-20 00:54] LABS: Bilirubin Negative (Negative); Blood, Urine Negative (Negative); Clarity Clear (Clear); Glucose, Urine (Dipstick) Normal (Negative); Ketone, Urine Negative (Negative); Leukocyte Negative Leu/uL (Negative); Nitrite Negative (Negative); Protein, Urine (Dipstick) Negative (Neg-Trace); Specific Gravity, Urine 1.023 (1.002-1.036); Urobilinogen Normal mg/dL (Less than 2); pH, Urine 6.5 (5.0-9.0)
[2020-02-20] MEDS: Lactated Ringer's 1,000 ML IV SCH ×2 (02:59→15:26)
[2020-02-20] MEDS ORDERED: Morphine 4 MG/ML VIAL SLOW IVP SCH (03:30)
[2020-02-20 04:56] LABS: #Lymphocytes 0.7 thou/uL (1.20-3.40); #Monocytes 0.1 thou/uL (0.11-0.59); #Neutrophils 6.4 thou/uL (1.40-6.50); %Basophils 0.1 % (0.0-1.0); %Eosinophils 0.2 % (0.0-10.0); %Lymphocytes 9.1 % (21.0-51.0); %Neutrophils 89.7 % (42.0-75.0); Hemoglobin 11.8 g/dL (12.0-16.0); Mean Corpuscular HGB CONC 32.8 g/dL (32.0-36.0); Mean Corpuscular Hemoglobin 30.8 pg (27.0-31.0); Mean Corpuscular Volume 93.9 fL (78.0-98.0); Mean Platelet Volume 8.2 fL (7.4-10.4); Platelet Count 198 thou/uL (130-400); RBC Distribution Width 11.6 % (11.5-14.5); Red Blood Cell (RBC) Count 3.82 mill/uL (4.20-5.40); White Blood Cell (WBC) Count 7.2 thou/uL (4.8-10.8)
[2020-02-20 05:15] LABS: Anion Gap 18 mmol/L (10-20); BUN (Urea Nitrogen) 27 mg/dL (9.8-20.1); Calc. Creatinine Clearance 69 mL/min (70-130); Calcium 9.4 mg/dL (7.8-10.44); Carbon Dioxide 27 mmol/L (23-31); Chloride 102 mmol/L (98-107); Estimated GFR-MDRD 54; Glucose 158 mg/dL (83-110); Potassium 3.6 mmol/L (3.5-5.1); Sodium 143 mmol/L (136-145)
[2020-02-20 05:19] LABS: Troponin I Less than 0.010 ng/mL (< 0.028)
[2020-02-20] MEDS: Levothyroxine Sodium 75 MCG TAB PO SCH (06:17)
--- NOTE | 2020-02-20 06:59 | PDOC.FM ---
- Subjective Subjective: Mrs. Lee is doing okay this morning. She is still experiencing pain on her R back but states it has improved mildly with a heating pad. She is still complaining of SOB episodes that she describes as panic attacks which she says have been occurring more frequently "lately". She is still complaining of severe burning pain in her legs. - Objective Vital Signs & Weight: Vital Signs (12 hours) Temp Pulse Resp BP Pulse Ox 02/20/20 03:31 97.9 F 89 19 110/54 L 97 02/20/20 02:05 97.5 F L 75 16 138/68 94 L 02/20/20 02:02 97.5 F L 74 16 166/78 H 94 L 02/20/20 01:45 3 L Weight Weight 96.252 kg I&O: 02/18/20 02/19/20 02/20/20 06:59 06:59 06:59 Intake Total 720 Balance 720 Result Diagrams: 02/20/20 04:44 02/20/20 04:44 Phys Exam - Physical Examination Constitutional: NAD Neck: supple Respiratory: no wheezing, no rales, no rhonchi, clear to auscultation bilateral Good air movement, cough provoked on deep inspiration Cardiovascular: RRR, no significant murmur Neurological: non-focal Psychiatric: normal affect (anxious), A&O x 3 Dx/Plan - Plan Plan: This is an 80F who presented with pressure like CP, SOB, and diaphoresis, found to have a R sided PE. Acute on chronic hypoxic respiratory failure 2/2 pulmonary embolism - Elevated d-dimer of 1.45 - ABG: pO2 66, pCO2 41.7, [place] 28.4, pH 7.45 - CTA chest with R sided PE s/p 1 mg/kg lovenox in ED - Neg flu and covid - will continue with 1 mg/kg lovenox BID and plan for transition to oral agent Will discuss Eliquis vs Warfarin with pt and CM today - continuous O2 monitoring and keep sats >92% Home O2 requirement of 3L NC - will monitor on tele, trops trended down COPD - Suspect respiratory symptoms related to PE rather than a COPD exacerbation - will treat with duonebs - continue to monitor and consider addition of PO steroids if symptoms not improving with tx of PE HFpEF Last echo 2014 with EF 50-55%, grade 1/3 diastolic dysfunction. - No clinical signs of volume overload. - Mildly elevated BNP, may be 2/2 PE - hold home PRN lasix for now - gentle fluid resuscitation with LR 75mL/h MINI on CKD2 - Cr back to baseline - Concern for possible urinary retention vs pre-renal due to decreased PO intake. Pt voiding independently; pure wick in place - CT abd/pelv without evidence of hydronephrosis - UA neg, UCx pending - gentle fluid resuscitation Bilateral leg pain Likely 2/2 chronic neuropathy although DVT is possible - bilateral LE dopplers pending - lovenox for PE will also treat DVT if present - continue home gabapentin s/p fall - Assisted fall without LOC or gross deformity. Borderline QTc - QTc 470 on admission EKG - Avoid QT prolonging meds Normocytic anemia - Hgb 11.4, MCV 94 on admission. Appears chronic on chart review. May be due to CKD. - Last B12/folate wnl in 2018. - aware - consider iron studies Hypernatremia, mild - Na 146 on admission. Possibly 2/2 dehydration with decreased PO intake. - gentle IV fluid resuscitation as above - monitor on AM labs Chronic problems: HTN: POA, aware, continue home coreg and lisinopril Hypothyroid: POA, aware, continue home levothyroxine GERD: POA, aware, continue home protonix Hx CVA w/R sided deficits: continue home ASA and plavix Anxiety/depression: POA, continue home buspar, prozac, amytryptiline HLD: home fenofibrate, atorvastatin Dispo: admit tele, LOS > 48h pending sx improvement and transition of lovenox to oral therapy IVF: LR @ 75mL/h DVT ppx: Sloan 100mg BID GI ppx: home pantoprazole Diet: HH/fluid restriction Code: FULL Lines: R fem line (unable to get peripheral IV) PCP: STACEY Wheeler
[2020-02-20] MEDS: Gabapentin 100 MG CAP PO SCH ×2 (08:24→20:16)
[2020-02-20] MEDS: FLUoxetine HCl 20 MG CAP PO SCH (08:25)
[2020-02-20] MEDS: Cholecalciferol 1,000 UNITS (25 MCG) TAB PO SCH (08:25)
[2020-02-20] MEDS: busPIRone HCl 10 MG TAB PO SCH ×3 (08:25→20:16)
[2020-02-20] MEDS: Aspirin 81 mg Enteric Coated Tablet PO SCH (08:26)
[2020-02-20] MEDS: Clopidogrel Bisulfate 75 MG TAB PO SCH (08:26)
[2020-02-20] MEDS: Fish Oil 1,000 MG CAP PO SCH (08:26)
[2020-02-20] MEDS: Ubidecarenone 50 MG CAP PO SCH (08:26)
[2020-02-20] MEDS: Atorvastatin Calcium 40 MG TAB PO SCH (08:26)
[2020-02-20] MEDS: Carvedilol 25 MG TAB PO SCH ×2 (08:26→20:16)
[2020-02-20] MEDS: Lisinopril 10 MG TAB PO SCH (08:26)
[2020-02-20] MEDS ORDERED: Enoxaparin Sodium 100 MG/ML SYRINGE SC SCH (09:00)
[2020-02-20 09:01] LABS: Hemoglobin 11.5 g/dL (12.0-16.0); Platelet Count 208 thou/uL (130-400)
--- NOTE | 2020-02-20 09:40 | ULT ---
BILATERAL LOWER EXTREMITY VENOUS DOPPLER ULTRASOUND: Date: 02/20/2020 HISTORY: Pulmonary embolism. TECHNIQUE: Simpson scale ultrasound with color flow and spectral Doppler imaging of the deep venous systems of the lower extremities was performed bilaterally. FINDINGS: There is good flow, compression, and augmentation noted in the common femoral, femoral, deep femoral, popliteal, posterior tibial, and greater saphenous veins. IMPRESSION: No evidence of deep venous thrombosis in either lower extremity. POS: JUANA
--- NOTE | 2020-02-20 13:52 | HP ---
Please see the notes from Dr. Lakesha Palma for her history and physical and also the progress note from Dr. Allie Slaughter, for which I agree and fully reviewed. The patient was seen, evaluated, discussed and examined with the residents by bedside. HISTORY OF PRESENT ILLNESS: This is an 80-year-old female with complicated history including COPD and diastolic preserved ejection fraction and congestive heart failure in the past, who came in with about a week-long history of right-sided chest discomfort that radiates to her back with a little bit increased restlessness and was found on a CTA to have pulmonary embolism on the right. Really complains mostly of just severe neuropathy in the legs, which has been chronic. Unclear exactly where this clot came from It does sound like she had history of DVTs before and may have family history of DVTs in a daughter as well. PAST MEDICAL HISTORY: Per the residents history and physical. PAST SURGICAL HISTORY: Per the residents history and physical. MEDICATIONS: Per the residents history and physical. ALLERGIES: PER THE RESIDENTS HISTORY AND PHYSICAL. REVIEW OF SYSTEMS: Per the residents history and physical. PHYSICAL EXAMINATION: VITAL SIGNS: On exam, oxygen level is upper 90s on 3 L. GENERAL: No apparent distress. Mildly depressed affect. ENT: Otherwise significant for anicteric, conjunctivae not pale. CHEST: Clear. CARDIAC: Regular rate and rhythm. ABDOMEN: Benign. EXTREMITIES: Have trace edema bilaterally. Negative cords. Negative Homans. Very tender to palpation. LABORATORY DATA: Labs etc, were reviewed. ASSESSMENT: Pulmonary embolism. We will obviously admit her on telemetry. Lovenox for now and eventually we will switch her to Eliquis or Coumadin. Eliquis more likely if we can get for her afford it. We will get a Doppler ultrasound of the legs look for source and we will also get an echocardiogram. Otherwise, we will continue her other home medicines including medications for COPD, the heart failure and neuropathy. Job ID: [id number]
[2020-02-20] MEDS ORDERED: Acetaminophen 500 MG TAB PO SCH (14:45)
[2020-02-20] MEDS ORDERED: Nystatin Powder 15 GM BOT TOP PRN (15:02)
[2020-02-20] MEDS: Apixaban 5 MG TAB PO SCH (20:15)
[2020-02-20] MEDS: Fenofibrate Nanocrystallized 145 MG TAB PO SCH (20:16)
[2020-02-20] MEDS: Amitriptyline HCl 100 MG TAB PO SCH (20:16)
[2020-02-20] MEDS ORDERED: Ibuprofen 800 MG TAB PO PRN (20:40)
[2020-02-20] MEDS ORDERED: FLU VACC QS2020-21(65YR UP)/PF 240 MCG/0.7 ML SYRINGE IM ONE (21:00)
[2020-02-20] MEDS: clonazePAM 0.5 MG TAB PO SCH (21:02)
[2020-02-21] MEDS: Lactated Ringer's 1,000 ML IV SCH (03:18)
[2020-02-21 04:59] LABS: #Eosinphils 0.1 thou/uL (0.0-0.7); #Lymphocytes 1.6 thou/uL (1.20-3.40); #Monocytes 0.4 thou/uL (0.11-0.59); #Neutrophils 4.3 thou/uL (1.40-6.50); %Basophils 0.3 % (0.0-1.0); %Eosinophils 1.4 % (0.0-10.0); %Lymphocytes 24.9 % (21.0-51.0); %Monocytes 6.4 % (0.0-10.0); %Neutrophils 67.1 % (42.0-75.0); Hemoglobin 9.9 g/dL (12.0-16.0); Mean Corpuscular HGB CONC 33.7 g/dL (32.0-36.0); Mean Corpuscular Hemoglobin 31.9 pg (27.0-31.0); Mean Corpuscular Volume 94.9 fL (78.0-98.0); Mean Platelet Volume 8.6 fL (7.4-10.4); Platelet Count 172 thou/uL (130-400); RBC Distribution Width 11.8 % (11.5-14.5); Red Blood Cell (RBC) Count 3.09 mill/uL (4.20-5.40); White Blood Cell (WBC) Count 6.5 thou/uL (4.8-10.8)
[2020-02-21 05:23] LABS: Anion Gap 14 mmol/L (10-20); BUN (Urea Nitrogen) 27 mg/dL (9.8-20.1); Calc. Creatinine Clearance 73 mL/min (70-130); Calcium 8.7 mg/dL (7.8-10.44); Carbon Dioxide 29 mmol/L (23-31); Chloride 101 mmol/L (98-107); Estimated GFR-MDRD 58; Glucose 109 mg/dL (83-110); Potassium 3.4 mmol/L (3.5-5.1); Sodium 141 mmol/L (136-145)
[2020-02-21] MEDS: Levothyroxine Sodium 75 MCG TAB PO SCH (05:37)
--- NOTE | 2020-02-21 06:26 | PDOC.FM ---
- Subjective Subjective: Mrs. Lee was attempting to rest this morning because she had a difficult night due to a severe headache and "an elephant sitting on my chest again". She was given Tylenol, Ibuprofen, and her home Clonazepam last night and she said her sxs improved "after they gave me those pills last night". She is hesitant about going to rehab because she just wants to go home, although she acknowledges that she has done well at rehab in the past. She states her SOB has come and gone intermittently. - Objective Vital Signs & Weight: Vital Signs (12 hours) Temp Pulse Resp BP Pulse Ox 02/21/20 03:15 97.5 F L 61 16 128/59 L 96 02/21/20 01:16 96 02/21/20 01:14 61 18 96 02/20/20 20:14 98.4 F 72 16 104/46 L 98 02/20/20 19:15 62 16 100 Weight Weight 98.339 kg I&O: 02/19/20 02/20/20 02/21/20 06:59 06:59 06:59 Intake Total 720 3400 Output Total 150 Balance 720 3250 Result Diagrams: 02/21/20 04:02 02/21/20 04:02 Phys Exam - Physical Examination Constitutional: NAD Neck: supple Respiratory: clear to auscultation bilateral Cardiovascular: RRR, no significant murmur Gastrointestinal: soft Musculoskeletal: no edema Neurological: non-focal, moves all 4 limbs Psychiatric: normal affect, A&O x 3 Skin: no rash Dx/Plan - Plan Plan: This is an 80F who presented with pressure like CP, SOB, and diaphoresis, found to have a R sided PE. Acute on chronic hypoxic respiratory failure 2/2 pulmonary embolism - CTA chest with R sided PE - Transitioned to Eliquis yesterday as pt states her insurance will cover it - continuous O2 monitoring and keep sats >92% Home O2 requirement of 3L NC - will monitor on tele, trops trended down - Daughter has requested evaluation for rehab. Post-acute screen ordered COPD - Suspect respiratory symptoms related to PE rather than a COPD exacerbation - will treat with duonebs HFpEF - Echo on 02/20/2020 shows EF 55-60% with diastolic dysf (no grade given), unch anged from 2015 - No clinical signs of volume overload. - Mildly elevated BNP, may be 2/2 PE - hold home PRN lasix for now - gentle fluid resuscitation with LR 75mL/h MINI on CKD2 - Cr back to baseline - CT abd/pelv without evidence of hydronephrosis - UA neg, UCx neg - gentle fluid resuscitation Bilateral leg pain Likely 2/2 chronic neuropathy although DVT is possible - bilateral LE doppler neg - continue home gabapentin s/p fall - Assisted fall without LOC or gross deformity. Borderline QTc - QTc 470 on admission EKG - Avoid QT prolonging meds - On tele Normocytic anemia - Hgb 11.4, MCV 94 on admission. Appears chronic on chart review. May be due to CKD. - Last B12/folate wnl in 2018. - aware Hypernatremia, resolved - Na 141 this am - gentle IV fluid resuscitation as above - monitor on AM labs Chronic problems: HTN: POA, aware, continue home coreg and lisinopril Hypothyroid: POA, aware, continue home levothyroxine GERD: POA, aware, continue home protonix Hx CVA w/R sided deficits: continue home ASA and plavix Anxiety/depression: POA, continue home buspar, prozac, amytryptiline HLD: home fenofibrate, atorvastatin Dispo: admit tele, LOS likely >48h pending rehab eval and placement IVF: LR @ 75mL/h DVT ppx: Eliquis GI ppx: home pantoprazole Diet: HH/fluid restriction Code: FULL Lines: R fem line (unable to get peripheral IV) PCP: STACEY Wheeler
[2020-02-21] MEDS: Aspirin 81 mg Enteric Coated Tablet PO SCH (07:55)
[2020-02-21] MEDS: Ubidecarenone 50 MG CAP PO SCH (07:55)
[2020-02-21] MEDS: Atorvastatin Calcium 40 MG TAB PO SCH (07:55)
[2020-02-21] MEDS: FLUoxetine HCl 20 MG CAP PO SCH (07:55)
[2020-02-21] MEDS: Carvedilol 25 MG TAB PO SCH ×2 (07:56→20:33)
[2020-02-21] MEDS: Gabapentin 100 MG CAP PO SCH ×2 (07:56→20:33)
[2020-02-21] MEDS: Cholecalciferol 1,000 UNITS (25 MCG) TAB PO SCH (07:56)
[2020-02-21] MEDS: Apixaban 5 MG TAB PO SCH ×2 (07:56→20:33)
[2020-02-21] MEDS: Clopidogrel Bisulfate 75 MG TAB PO SCH (07:57)
[2020-02-21] MEDS: busPIRone HCl 10 MG TAB PO SCH ×3 (07:57→20:33)
[2020-02-21] MEDS: Lisinopril 10 MG TAB PO SCH (07:57)
[2020-02-21] MEDS: Fish Oil 1,000 MG CAP PO SCH (07:57)
[2020-02-21] MEDS ORDERED: Potassium Chloride 40 MEQ in Premix Bag 1 BAG IVPB SCH (08:30)
[2020-02-21] MEDS ORDERED: Potassium Chloride 40 MEQ in Sodium Chloride 0.9% 250 ML 250 ML IVPB SCH (08:45)
[2020-02-21 10:15] LABS: Iron 97 ug/dL (50-170); Iron Binding Capacity, Total 433 mcg/dL (265-497)
[2020-02-21] MEDS ORDERED: Ondansetron PF 4 MG/2 ML Vial IVP PRN (10:15)
--- NOTE | 2020-02-21 11:37 | PRG ---
DATE OF SERVICE: 02/21/2020 Doing fine without any issues to think that the pulmonary embolism is causing any problems. Her echocardiogram look fairly normal. We are putting her on Eliquis now and waiting on fdc placement for her as it sounds like her PE was over a week ago. Her hemoglobin has dropped a little bit. Certainly, going to get iron studies on her. May be IV fluid related. She is not eating now well this morning. States she was vomiting, but does not sound that far off from her baseline. She is already on a PPI. Complains of diffuse pain and gives additional history that she will sometimes take literally eight tablets of 500 mg of Tylenol at a time at home. Did career counselor her against that. If she is iron deficient, may need to get GI involved anyway because I guess this could be something like an ulcer. It is difficult because it sounds like the patient's baseline includes multiple somatic complaints, so it is hard to know what is new or not. There is some question about previous pain med abuse, although I am not sure if we are just talking about the Tylenol or something else. We are going to discuss that with family. Job ID: [id number]
[2020-02-21] MEDS: traMADol HCl 50 MG TAB PO PRN ×2 (12:08→20:34)
[2020-02-21] MEDS: Amitriptyline HCl 100 MG TAB PO SCH (20:32)
[2020-02-21] MEDS: clonazePAM 0.5 MG TAB PO SCH (20:33)
[2020-02-21] MEDS: Fenofibrate Nanocrystallized 145 MG TAB PO SCH (20:33)
[2020-02-22] MEDS: traMADol HCl 50 MG TAB PO PRN ×3 (05:11→16:35)
[2020-02-22] MEDS: Levothyroxine Sodium 75 MCG TAB PO SCH (05:12)
--- NOTE | 2020-02-22 06:28 | PDOC.FM ---
- Subjective Subjective: Ms. Lee reports that she noticed blood in her urine yesterday and darker urine. She complains of painful urination of the past several months and pain in her right lower back. 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 - Objective Vital Signs & Weight: Vital Signs (12 hours) Temp Pulse Resp BP Pulse Ox 02/22/20 03:37 98.0 F 65 14 122/57 L 95 02/22/20 00:56 66 16 98 02/21/20 20:00 98 02/21/20 19:33 97.7 F 69 18 135/62 99 02/21/20 19:08 68 16 94 L Weight Weight 98.702 kg I&O: 02/20/20 02/21/20 02/22/20 06:59 06:59 06:59 Intake Total 720 3400 1200 Output Total 150 1100 Balance 720 3250 100 Result Diagrams: 02/22/20 06:29 02/22/20 06:29 EKG Reviewed by me: Yes (tele: SR 60-70s) Phys Exam - Physical Examination Constitutional: NAD HEENT: moist MMs, sclera anicteric Neck: full ROM Respiratory: no wheezing, no rales, clear to auscultation bilateral Cardiovascular: RRR, no significant murmur Gastrointestinal: soft, non-tender, no distention R CVA tenderness Musculoskeletal: no edema, pulses present Neurological: non-focal Psychiatric: normal affect, A&O x 3 Skin: no rash Dx/Plan - Plan Plan: This is an 80F who presented with pressure like CP, SOB, and diaphoresis, found to have a R sided PE. Acute on chronic hypoxic respiratory failure 2/2 pulmonary embolism - CTA chest with R sided PE - Transitioned to [facility] on 02/20 - continuous O2 monitoring and keep sats >92% Home O2 requirement of 3L NC - will monitor on tele, trops trended down - Daughter has requested evaluation for rehab. Post-acute screen ordered Hematuria -Patient reports seeing gross blood in purewik yesterday. Nursing endorses darker blood yesterday and last night that has lightened this AM. -Patient complains of painful urination and R sided CVA tenderness for the past several weeks. UA neg, UCx neg on admission -Will repeat UA and UCx COPD - Suspect respiratory symptoms related to PE rather than a COPD exacerbation - will treat with duonebs HFpEF - Echo on 02/20/2020 shows EF 55-60% with diastolic dysf (no grade given), unchanged from 2015 - No clinical signs of volume overload. - Mildly elevated BNP, may be 2/2 PE - hold home PRN lasix for now - gentle fluid resuscitation with LR 75mL/h MINI on CKD2 - Cr back to baseline - CT abd/pelv without evidence of hydronephrosis - UA neg, UCx neg - gentle fluid resuscitation Bilateral leg pain Likely 2/2 chronic neuropathy although DVT is possible - bilateral LE doppler neg - continue home gabapentin s/p fall - Assisted fall without LOC or gross deformity. Borderline QTc - QTc 470 on admission EKG - Avoid QT prolonging meds - On tele Normocytic anemia - Hgb 11.4, MCV 94 on admission. Appears chronic on chart review. May be due to CKD. - Last B12/folate wnl in 2018. - aware Hypernatremia, resolved - Na 141 this am - gentle IV fluid resuscitation as above - monitor on AM labs Chronic problems: HTN: POA, aware, continue home coreg and lisinopril Hypothyroid: POA, aware, continue home levothyroxine GERD: POA, aware, continue home protonix Hx CVA w/R sided deficits: continue home ASA and plavix Anxiety/depression: POA, continue home buspar, prozac, amytryptiline HLD: home fenofibrate, atorvastatin Dispo: admit tele, LOS likely >48h pending rehab eval and placement IVF: LR @ 75mL/h DVT ppx: Eliquis GI ppx: home pantoprazole Diet: HH/fluid restriction Code: FULL Lines: R fem line (unable to get peripheral IV) PCP: STACEY Wheeler
[2020-02-22 06:47] LABS: #Eosinphils 0.1 thou/uL (0.0-0.7); #Lymphocytes 1.2 thou/uL (1.20-3.40); #Monocytes 0.7 thou/uL (0.11-0.59); #Neutrophils 8.5 thou/uL (1.40-6.50); %Basophils 0.3 % (0.0-1.0); %Eosinophils 1.2 % (0.0-10.0); %Lymphocytes 11.2 % (21.0-51.0); %Monocytes 6.5 % (0.0-10.0); %Neutrophils 80.9 % (42.0-75.0); Hemoglobin 10.2 g/dL (12.0-16.0); Mean Corpuscular HGB CONC 32.8 g/dL (32.0-36.0); Mean Corpuscular Hemoglobin 31.5 pg (27.0-31.0); Mean Corpuscular Volume 96.1 fL (78.0-98.0); Mean Platelet Volume 8.2 fL (7.4-10.4); Platelet Count 171 thou/uL (130-400); RBC Distribution Width 11.8 % (11.5-14.5); Red Blood Cell (RBC) Count 3.23 mill/uL (4.20-5.40); White Blood Cell (WBC) Count 10.4 thou/uL (4.8-10.8)
[2020-02-22 07:09] LABS: Anion Gap 15 mmol/L (10-20); BUN (Urea Nitrogen) 23 mg/dL (9.8-20.1); Calc. Creatinine Clearance 79 mL/min (70-130); Calcium 8.7 mg/dL (7.8-10.44); Carbon Dioxide 24 mmol/L (23-31); Chloride 106 mmol/L (98-107); Estimated GFR-MDRD 61; Glucose 100 mg/dL (83-110); Sodium 141 mmol/L (136-145)
[2020-02-22] MEDS: Gabapentin 100 MG CAP PO SCH ×2 (08:25→20:31)
[2020-02-22] MEDS: Ubidecarenone 50 MG CAP PO SCH (08:25)
[2020-02-22] MEDS: FLUoxetine HCl 20 MG CAP PO SCH (08:25)
[2020-02-22] MEDS: Apixaban 5 MG TAB PO SCH ×2 (08:25→20:29)
[2020-02-22] MEDS: Lisinopril 10 MG TAB PO SCH (08:26)
[2020-02-22] MEDS: Aspirin 81 mg Enteric Coated Tablet PO SCH (08:26)
[2020-02-22] MEDS: Atorvastatin Calcium 40 MG TAB PO SCH (08:26)
[2020-02-22] MEDS: Carvedilol 25 MG TAB PO SCH ×2 (08:26→20:30)
[2020-02-22] MEDS: Cholecalciferol 1,000 UNITS (25 MCG) TAB PO SCH (08:26)
[2020-02-22] MEDS: Fish Oil 1,000 MG CAP PO SCH (08:26)
[2020-02-22] MEDS: Clopidogrel Bisulfate 75 MG TAB PO SCH (08:26)
[2020-02-22] MEDS: busPIRone HCl 10 MG TAB PO SCH ×3 (08:26→20:30)
[2020-02-22 09:12] LABS: Bacteria/HPF 3+ HPF (None Seen); Bilirubin Negative (Negative); Blood, Urine 3+ (Negative); Clarity Turbid (Clear); Glucose, Urine (Dipstick) Normal (Negative); Ketone, Urine Negative (Negative); Leukocyte 500 Leu/uL (Negative); Nitrite 2+ (Negative); Protein, Urine (Dipstick) 200 mg/dL (Neg-Trace); RBC/HPF Greater than 50 HPF (0-3); Specific Gravity, Urine 1.018 (1.002-1.036); Squamous Epithelial 0-3 HPF (0-3); Urobilinogen Normal mg/dL (Less than 2); WBC/HPF Greater than 50 HPF (0-3); pH, Urine 7.5 (5.0-9.0)
[2020-02-22 09:14] LABS: Urine Culture Reflex Yes Yes
[2020-02-22] MEDS: cefTRIAXone\\ROCEPHIN 1 GM in Sodium Chloride 0.9% 100 ML IVPB SCH (10:47)
--- NOTE | 2020-02-22 11:33 | PRG ---
DATE OF SERVICE: 02/22/2020 Ms. Lee is a pleasant 80-year-old lady who was admitted with acute on chronic hypoxic respiratory failure secondary to pulmonary embolus. She was initially treated with Lovenox, has been transitioned to oral Eliquis, and remains improved. We are awaiting placement for her rehab. She also developed some urinary symptoms and possible hematuria. She likely has UTI and was started on therapy, pending culture results. Job ID: [id number]
[2020-02-22 14:42] VITALS: BMI 39.8
[2020-02-22] MEDS: Methocarbamol 500 MG TAB PO PRN (16:33)
[2020-02-22] MEDS: Amitriptyline HCl 100 MG TAB PO SCH (20:29)
[2020-02-22] MEDS: clonazePAM 0.5 MG TAB PO SCH (20:30)
[2020-02-22] MEDS: Fenofibrate Nanocrystallized 145 MG TAB PO SCH (20:31)
[2020-02-23 04:54] LABS: #Eosinphils 0.1 thou/uL (0.0-0.7); #Lymphocytes 1.2 thou/uL (1.20-3.40); #Monocytes 0.6 thou/uL (0.11-0.59); #Neutrophils 7.6 thou/uL (1.40-6.50); %Basophils 0.2 % (0.0-1.0); %Eosinophils 1.6 % (0.0-10.0); %Lymphocytes 12.2 % (21.0-51.0); Hemoglobin 10.2 g/dL (12.0-16.0); Mean Corpuscular HGB CONC 33.2 g/dL (32.0-36.0); Mean Corpuscular Hemoglobin 31.6 pg (27.0-31.0); Mean Corpuscular Volume 95.1 fL (78.0-98.0); Mean Platelet Volume 8.7 fL (7.4-10.4); Platelet Count 153 thou/uL (130-400); RBC Distribution Width 11.6 % (11.5-14.5); Red Blood Cell (RBC) Count 3.22 mill/uL (4.20-5.40); White Blood Cell (WBC) Count 9.5 thou/uL (4.8-10.8)
[2020-02-23] MEDS: Levothyroxine Sodium 75 MCG TAB PO SCH (05:17)
[2020-02-23] MEDS: traMADol HCl 50 MG TAB PO PRN ×3 (05:17→16:46)
[2020-02-23 05:20] LABS: Anion Gap 16 mmol/L (10-20); BUN (Urea Nitrogen) 17 mg/dL (9.8-20.1); Calc. Creatinine Clearance 90 mL/min (70-130); Carbon Dioxide 25 mmol/L (23-31); Chloride 103 mmol/L (98-107); Estimated GFR-MDRD 71; Glucose 107 mg/dL (83-110); Potassium 3.7 mmol/L (3.5-5.1); Sodium 140 mmol/L (136-145)
--- NOTE | 2020-02-23 07:12 | PDOC.FM ---
- Subjective Subjective: Patient is complaining of neck and back pain this morning. She says she is still having right sided kidney pain that feels similar to the pain she had on her left side when she had a kidney stone and ultimately had her kidney removed. The pain is throbbing in nature and she has pubic pain when she urinates. - Objective Vital Signs & Weight: Vital Signs (12 hours) Temp Pulse Resp BP Pulse Ox 02/23/20 04:00 98.8 F 66 18 142/61 H 95 02/23/20 01:10 69 16 96 02/22/20 19:55 98 02/22/20 19:13 98.2 F 69 18 147/68 H 99 Weight Admit Weight 96.252 kg Weight 98.203 kg I&O: 02/22/20 02/23/20 02/24/20 06:59 06:59 06:59 Intake Total 1200 1200 Output Total 1100 950 Balance 100 250 Result Diagrams: 02/23/20 04:28 02/23/20 04:28 EKG Reviewed by me: Yes (tele: SR 60-70s) Phys Exam - Physical Examination Constitutional: NAD HEENT: moist MMs, sclera anicteric Neck: full ROM Respiratory: no wheezing Cardiovascular: RRR, no significant murmur Gastrointestinal: soft suprapubic tenderness Musculoskeletal: no edema, pulses present tenderness to palpation over posterior neck and lower right back Neurological: non-focal Psychiatric: normal affect, A&O x 3 Dx/Plan - Plan Plan: This is an 80F who presented with pressure like CP, SOB, and diaphoresis, found to have a R sided PE. Acute on chronic hypoxic respiratory failure 2/2 pulmonary embolism - CTA chest with R sided PE - Transitioned to [facility] on 02/20 - continuous O2 monitoring and keep sats >92% Home O2 requirement of 3L NC - will monitor on tele, trops trended down - Daughter has requested evaluation for rehab. Post-acute screen ordered. Will text CM today and ask about rehab vs snf placement as note yesterday only indicated possible HH. Urinary Tract Infection -UA positive for bacteria, LE, nitrites - started on rocephin - Patient continues to complain of pain in her back and suprapubic area as well as darker than normal urine. - Consider CT to rule out presence of kidney stone COPD - Suspect respiratory symptoms related to PE rather than a COPD exacerbation - will treat with duonebs HFpEF - Echo on 02/20/2020 shows EF 55-60% with diastolic dysf (no grade given), unchanged from 2015 - No clinical signs of volume overload. - Mildly elevated BNP, may be 2/2 PE - hold home PRN lasix for now - gentle fluid resuscitation with LR 75mL/h MINI on CKD2 - Cr back to baseline - CT abd/pelv without evidence of hydronephrosis - UA neg, UCx neg - gentle fluid resuscitation Bilateral leg pain Likely 2/2 chronic neuropathy although DVT is possible - bilateral LE doppler neg - continue home gabapentin s/p fall - Assisted fall without LOC or gross deformity. Borderline QTc - QTc 470 on admission EKG - Avoid QT prolonging meds - On tele Normocytic anemia - Hgb 11.4, MCV 94 on admission. Appears chronic on chart review. May be due to CKD. - Last B12/folate wnl in 2018. - aware Hypernatremia, resolved - Na 141 this am - gentle IV fluid resuscitation as above - monitor on AM labs Chronic problems: HTN: POA, aware, continue home coreg and lisinopril Hypothyroid: POA, aware, continue home levothyroxine GERD: POA, aware, continue home protonix Hx CVA w/R sided deficits: continue home ASA and plavix Anxiety/depression: POA, continue home buspar, prozac, amytryptiline HLD: home fenofibrate, atorvastatin Dispo: admit tele, LOS likely >48h pending rehab eval and placement IVF: LR @ 75mL/h DVT ppx: Eliquis GI ppx: home pantoprazole Diet: HH/fluid restriction Code: FULL Lines: R fem line (unable to get peripheral IV) PCP: STACEY Wheeler Addendum - Attending - Attending Attestation Date/Time: 02/23/20 1028 I personally evaluated the patient and discussed the management with Dr. Smith. I agree with the History, Examination, Assessment and Plan documented above with any addition or exceptions noted below.
[2020-02-23] MEDS: Carvedilol 25 MG TAB PO SCH ×2 (08:19→20:10)
[2020-02-23] MEDS: Fish Oil 1,000 MG CAP PO SCH (08:19)
[2020-02-23] MEDS: Aspirin 81 mg Enteric Coated Tablet PO SCH (08:20)
[2020-02-23] MEDS: Clopidogrel Bisulfate 75 MG TAB PO SCH (08:20)
[2020-02-23] MEDS: Ubidecarenone 50 MG CAP PO SCH (08:20)
[2020-02-23] MEDS: Gabapentin 100 MG CAP PO SCH ×2 (08:20→20:09)
[2020-02-23] MEDS: busPIRone HCl 10 MG TAB PO SCH ×3 (08:20→20:10)
[2020-02-23] MEDS: Cholecalciferol 1,000 UNITS (25 MCG) TAB PO SCH (08:20)
[2020-02-23] MEDS: FLUoxetine HCl 20 MG CAP PO SCH (08:20)
[2020-02-23] MEDS: Atorvastatin Calcium 40 MG TAB PO SCH (08:21)
[2020-02-23] MEDS: Apixaban 5 MG TAB PO SCH ×2 (08:21→20:10)
[2020-02-23] MEDS: Lisinopril 10 MG TAB PO SCH (08:21)
[2020-02-23] MEDS: cefTRIAXone\\ROCEPHIN 1 GM in Sodium Chloride 0.9% 100 ML IVPB SCH (10:24)
--- NOTE | 2020-02-23 13:59 | RAD ---
RIGHT FOOT RADIOGRAPHS THREE VIEWS: 02/23/20 PROVIDED CLINICAL HISTORY: Right foot pain. FINDINGS: No evidence for fracture or other acute osseous abnormality. If there is persistent clinical concern, conservative management and follow-up imaging are advised. IMPRESSION: As above. POS: AH
--- NOTE | 2020-02-23 14:41 | ULT ---
RENAL ULTRASOUND: 02/23/20 HISTORY: Suspicion of right kidney stone. The patient is status post left nephrectomy. Right kidney is imaged and measures 12 cm in length. No hydronephrosis. Cortical echogenicity is norm al. There is an exophytic hypoechoic lesion superiorly measuring up to 2.0 cm consistent with a small cys t although this is poorly characterized. Urinary bladder is mildly distended. Mild urinary bladder wall thickening. Postvoid urine volume cassandra rded at 62 mL. No evidence of right renal calculus by ultrasound. IMPRESSION: Cyst superior right kidney corresponds to CT of 02/19/20. Evidence of mild urinary bladder wall thick ening. POS: AGW
[2020-02-23] MEDS: Methocarbamol 500 MG TAB PO PRN (16:46)
[2020-02-23] MEDS: Amitriptyline HCl 100 MG TAB PO SCH (20:10)
[2020-02-23] MEDS: Fenofibrate Nanocrystallized 145 MG TAB PO SCH (20:10)
[2020-02-23] MEDS: clonazePAM 0.5 MG TAB PO SCH (20:10)
[2020-02-24] MEDS: traMADol HCl 50 MG TAB PO PRN ×3 (02:59→16:09)
[2020-02-24] MEDS: Methocarbamol 500 MG TAB PO PRN ×3 (02:59→16:39)
[2020-02-24 05:04] LABS: #Eosinphils 0.2 thou/uL (0.0-0.7); #Lymphocytes 1.1 thou/uL (1.20-3.40); #Monocytes 0.9 thou/uL (0.11-0.59); #Neutrophils 8.7 thou/uL (1.40-6.50); %Basophils 0.2 % (0.0-1.0); %Eosinophils 1.8 % (0.0-10.0); %Lymphocytes 10.2 % (21.0-51.0); %Monocytes 8.1 % (0.0-10.0); %Neutrophils 79.7 % (42.0-75.0); Hemoglobin 10.3 g/dL (12.0-16.0); Mean Corpuscular HGB CONC 32.4 g/dL (32.0-36.0); Mean Corpuscular Hemoglobin 30.9 pg (27.0-31.0); Mean Corpuscular Volume 95.2 fL (78.0-98.0); Mean Platelet Volume 8.8 fL (7.4-10.4); Platelet Count 139 thou/uL (130-400); RBC Distribution Width 11.7 % (11.5-14.5); Red Blood Cell (RBC) Count 3.35 mill/uL (4.20-5.40); White Blood Cell (WBC) Count 10.9 thou/uL (4.8-10.8)
[2020-02-24 05:29] LABS: Anion Gap 17 mmol/L (10-20); BUN (Urea Nitrogen) 14 mg/dL (9.8-20.1); Calc. Creatinine Clearance 87 mL/min (70-130); Calcium 9.1 mg/dL (7.8-10.44); Carbon Dioxide 25 mmol/L (23-31); Chloride 103 mmol/L (98-107); Estimated GFR-MDRD 68; Glucose 117 mg/dL (83-110); Potassium 3.7 mmol/L (3.5-5.1); Sodium 141 mmol/L (136-145)
[2020-02-24] MEDS: Levothyroxine Sodium 75 MCG TAB PO SCH (05:56)
--- NOTE | 2020-02-24 06:45 | PDOC.FM ---
- Subjective Subjective: Ms. Lee is complaining of pain in her R foot. Xray yesterday revealed no abnormalities. 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 The pain is present on the top of her right foot. Referral has been sent to [facility]. - Objective Vital Signs & Weight: Vital Signs (12 hours) Temp Pulse Resp BP Pulse Ox 02/24/20 03:53 98.5 F 67 16 146/64 H 100 02/24/20 00:28 70 16 98 02/23/20 19:38 97.5 F L 76 16 171/72 H 100 02/23/20 19:03 20 Weight Admit Weight 96.252 kg Weight 99.473 kg I&O: 02/22/20 02/23/20 02/24/20 06:59 06:59 06:59 Intake Total 1200 1200 1150 Output Total 1100 950 950 Balance 100 250 200 Result Diagrams: 02/24/20 04:35 02/24/20 04:35 EKG Reviewed by me: Yes (tele: SR 60-70s) Radiology Reviewed by me: Yes Radiology: R foot Xray: no abnormality Kidney US: superior cyst on R kidney, mild bladder wall thickening Phys Exam - Physical Examination Constitutional: NAD HEENT: moist MMs, sclera anicteric Neck: no JVD Respiratory: no wheezing, clear to auscultation bilateral Cardiovascular: RRR, no significant murmur Gastrointestinal: soft, no distention Musculoskeletal: no edema, pulses present tenderness to palpation on anterior right foot Neurological: non-focal Psychiatric: normal affect, A&O x 3 Skin: no rash Dx/Plan - Plan Plan: This is an 80F who presented with pressure like CP, SOB, and diaphoresis, found to have a R sided PE. Acute on chronic hypoxic respiratory failure 2/2 pulmonary embolism - CTA chest with R sided PE - Transitioned to Eliquis on 02/20 - continuous O2 monitoring and keep sats >92% Home O2 requirement of 3L NC - will monitor on tele, trops trended down - Referral sent to [facility] Urinary Tract Infection -UA positive for bacteria, LE, nitrites - started on rocephin (day 3) - Renal US revealed no abnormalities, hydronephrosis or presence of stone Right Foot Pain - Complaining of new onset right foot pain. Pain is located on top of right foot and patient reports it is uncomfortable to move and for her bed sheet to touch it. - Tenderness to palpation on anterior right foot. Xray revealed no abnormalities. - Lidocaine patch for pain COPD - Suspect respiratory symptoms related to PE rather than a COPD exacerbation - Continue duonebs HFpEF - Echo on 02/20/2020 shows EF 55-60% with diastolic dysf (no grade given), unchanged from 2015 - No clinical signs of volume overload. - Mildly elevated BNP, may be 2/2 PE - hold home PRN lasix for now MINI on CKD2 - Cr back to baseline - CT abd/pelv without evidence of hydronephrosis - UA neg, UCx neg - gentle fluid resuscitation Bilateral leg pain Likely 2/2 chronic neuropathy although DVT is possible - bilateral LE doppler neg - continue home gabapentin s/p fall - Assisted fall without LOC or gross deformity. Borderline QTc - QTc 470 on admission EKG - Avoid QT prolonging meds - On tele Normocytic anemia - Hgb 11.4, MCV 94 on admission. Appears chronic on chart review. May be due to CKD. - Last B12/folate wnl in 2018. - aware Hypernatremia, resolved - Na 141 this am - gentle IV fluid resuscitation as above - monitor on AM labs Chronic problems: HTN: POA, aware, continue home coreg and lisinopril Hypothyroid: POA, aware, continue home levothyroxine GERD: POA, aware, continue home protonix Hx CVA w/R sided deficits: continue home ASA and plavix Anxiety/depression: POA, continue home buspar, prozac, amytryptiline HLD: home fenofibrate, atorvastatin Dispo: admit tele, LOS likely >48h pending rehab eval and placement IVF: SL DVT ppx: Eliquis GI ppx: home pantoprazole Diet: HH/fluid restriction Code: FULL Lines: R fem line (unable to get peripheral IV) PCP: STACEY Wheeler Addendum - Attending - Attending Attestation Date/Time: 02/24/20 1945 I personally evaluated the patient and discussed the management with Dr. Smith. I agree with the History, Examination, Assessment and Plan documented above with any addition or exceptions noted below.
[2020-02-24] MEDS: FLUoxetine HCl 20 MG CAP PO SCH (08:16)
[2020-02-24] MEDS: Atorvastatin Calcium 40 MG TAB PO SCH (08:16)
[2020-02-24] MEDS: Clopidogrel Bisulfate 75 MG TAB PO SCH (08:17)
[2020-02-24] MEDS: Carvedilol 25 MG TAB PO SCH (08:17)
[2020-02-24] MEDS: Gabapentin 100 MG CAP PO SCH (08:17)
[2020-02-24] MEDS: Lisinopril 10 MG TAB PO SCH (08:17)
[2020-02-24] MEDS: Apixaban 5 MG TAB PO SCH (08:18)
[2020-02-24] MEDS: Ubidecarenone 50 MG CAP PO SCH (08:18)
[2020-02-24] MEDS: Aspirin 81 mg Enteric Coated Tablet PO SCH (08:19)
[2020-02-24] MEDS: Fish Oil 1,000 MG CAP PO SCH (08:19)
[2020-02-24] MEDS: busPIRone HCl 10 MG TAB PO SCH ×2 (08:19→14:44)
[2020-02-24] MEDS: Cholecalciferol 1,000 UNITS (25 MCG) TAB PO SCH (08:19)
[2020-02-24] MEDS ORDERED: Lidocaine 5% Patch TD SCH (09:00)
[2020-02-24] MEDS: cefTRIAXone\\ROCEPHIN 1 GM in Sodium Chloride 0.9% 100 ML IVPB SCH (09:38)
[2020-02-24 16:14] VITALS: BP 135/63; TEMP 98.5
[2020-02-24] MEDS ORDERED: Lidocaine Patch Removal 1 EACH TOP SCH (21:00)
== END 2020-02-24 18:10 | DRG 175 ==
LOC: ERS 15:08 → 2NO 21:04
PROVIDERS: ADMIT Family Medicine; ATTEND Family Medicine
DX: I26.99 Other pulmonary embolism without acute cor pulmonale (principal); J96.21 Acute and chronic respiratory failure with hypoxia; I50.32 Chronic diastolic (congestive) heart failure; I69.351 Hemiplegia and hemiparesis following cerebral infarction affecting right dominant side; I13.0 Hypertensive heart and chronic kidney disease with heart failure and stage 1 through stage 4 chronic kidney disease, or unspecified chronic kidney disease; N17.9 Acute kidney failure, unspecified; E87.0 Hyperosmolality and hypernatremia; N39.0 Urinary tract infection, site not specified; Z20.828 Contact with and (suspected) exposure to other viral communicable diseases; E03.9 Hypothyroidism, unspecified; F32.9 Major depressive disorder, single episode, unspecified; F41.9 Anxiety disorder, unspecified; J44.9 Chronic obstructive pulmonary disease, unspecified; N18.2 Chronic kidney disease, stage 2 (mild); D63.1 Anemia in chronic kidney disease; G62.9 Polyneuropathy, unspecified; Z99.81 Dependence on supplemental oxygen; Z88.1 Allergy status to other antibiotic agents; Z88.8 Allergy status to other drugs, medicaments and biological substances; Z79.890 Hormone replacement therapy; Z79.82 Long term (current) use of aspirin
CPT/HCPCS: 36415; 36556; 36600; 51701; 71045; 71275; 74177; 76775; 80048; 80053; 81001; 81003; 82550; 82805; 83540; 83550; 83690; 83880; 84484; 85025; 85379; 85610; 85730; 87077; 87086; 87186; 87804; 93005; 93306; 93970; 94640; 96372; 96374; 96375; J0696; J1100; J1650; J2270; J3480; J3490; J7050; J7620; Q9967; U0002

== ENCOUNTER 2020-03-21 07:29 | Inpatient (IN) | payer MEDICARE, MEDICAID ==
--- NOTE | 2020-03-21 08:08 | RAD ---
EXAM: Single view of the chest HISTORY: Shortness of breath and chest pain COMPARISON: 02/19/2020 FINDINGS: Single view of the chest shows an enlarged but stable cardiomediastinal silhouette. There i s no evidence of consolidation, mass, or pleural effusion. Degenerative changes are seen in the spine. Post surgical changes are seen in the cervical spine and left shoulder. IMPRESSION: No evidence of acute cardiopulmonary disease
[2020-03-21 08:23] LABS: #Eosinphils 0.2 thou/uL (0.0-0.7); #Lymphocytes 0.8 thou/uL (1.20-3.40); #Monocytes 0.7 thou/uL (0.11-0.59); #Neutrophils 8.2 thou/uL (1.40-6.50); %Basophils 0.1 % (0.0-1.0); %Eosinophils 2.2 % (0.0-10.0); %Lymphocytes 7.9 % (21.0-51.0); %Monocytes 6.9 % (0.0-10.0); Hemoglobin 9.8 g/dL (12.0-16.0); Mean Corpuscular HGB CONC 32.4 g/dL (32.0-36.0); Mean Corpuscular Hemoglobin 30.5 pg (27.0-31.0); Mean Corpuscular Volume 94.1 fL (78.0-98.0); Mean Platelet Volume 9.4 fL (7.4-10.4); Platelet Count 172 thou/uL (130-400); RBC Distribution Width 12.2 % (11.5-14.5); Red Blood Cell (RBC) Count 3.22 mill/uL (4.20-5.40); White Blood Cell (WBC) Count 9.9 thou/uL (4.8-10.8)
--- NOTE | 2020-03-21 08:31 | ULT ---
US Venous Doppler Rt Unilat History: Pain and swelling Comparison: None. Findings: Real-time grayscale, color and spectral analysis of the right lower extremity venous system was performed. The common femoral, femoral, proximal portions greater saphenous and deep femoral veins as well as the popliteal posterior tibial veins were interrogated. Normal flow, augmentation and compression. Impression: No deep venous thrombosis.
[2020-03-21 08:36] LABS: ALT (SGPT) Less than 7 U/L (8-55); AST (SGOT) 11 U/L (5-34); Albumin 3.9 g/dL (3.4-4.8); Alkaline Phosphatase 64 U/L (40-110); Anion Gap 11 mmol/L (10-20); BUN (Urea Nitrogen) 18 mg/dL (9.8-20.1); Bilirubin, Total 0.5 mg/dL (0.2-1.2); Calc. Creatinine Clearance 0 mL/min (70-130); Carbon Dioxide 31 mmol/L (23-31); Chloride 105 mmol/L (98-107); Globulin 2.9 g/dL (2.4-3.5); Glucose 113 mg/dL (83-110); Lipase 17 U/L (8-78); Potassium 3.8 mmol/L (3.5-5.1); Protein, Total 6.8 g/dL (6.0-8.3); Sodium 143 mmol/L (136-145)
[2020-03-21] MEDS ORDERED: Iopamidol-370 76% 500 ML 1 ML ONE (09:24)
--- NOTE | 2020-03-21 10:21 | CT ---
CTA Angio Chest W WO Con History: Chest pain Comparison: CT angiogram chest February 19, 2020 Findings: CT angiogram chest performed after the intravenous ministration of contrast. 3-D rendering provided. The embolism load within the right lower lobe is slightly decreased with partial resorption. Right up per lobe embolism load similar. In the left lung there is no pulmonary embolism. No pericardial effusion. Interventricular septum is not bowed. No adenopathy. Contrast is seen within the suprahepatic IVC and hepatic veins. Sternum and manubrium are intact. The thoracic spine is intact. No new pulmonary consolidation. Small 4 mm nodule left lower lobe appears relatively solid axial imag e 69. Upper abdomen is unremarkable. No acute rib fracture. Impression: Slight interval decreased pulmonary embolism load from partial resorption.
--- NOTE | 2020-03-21 11:38 | PDOC.FPRHP ---
- History of Present Illness Chief Complaint: CP, SOB History of Present Illness: Brought by EMS for 3 days of worsening R-sided CP and SOB. Reports chest pain & "butterflies" that radiates across the front of her chest from her R back. Says the pain is the same as the pain she felt when she presented with PE about 1 mo ago. Denies any exacerbating or alleviating factors. Reports associated SOB with the pain. Does endorse gaining ~20 pounds since leaving rehab and says her stomach is swollen. No LE edema, fever/chills, cough, myalgias, or CORDERO. ED Course: 50mcg fentanyl, 40mg IV lasix, nitro paste, ASA - Allergies/Adverse Reactions Allergies Allergy/AdvReac Type Severity Reaction Status Date / Time amoxicillin trihydrate Allergy severe Verified 02/20/20 04:33 [From Augmentin] yeast infection potassium clavulanate Allergy severe Verified 02/20/20 04:33 [From Augmentin] yeast infection sulfisoxazole AdvReac Severe Nausea Verified 02/20/20 04:33 [From Gantrisin] - Home Medications Medication Instructions Recorded Confirmed Type Amitriptyline HCl [Elavil] 25 mg PO HS 04/27/13 03/21/20 History Clopidogrel Bisulfate [Plavix] 75 mg PO DAILY 04/27/13 03/21/20 History Fenofibrate [Tricor] 1 tab PO QPM 12/17/14 03/21/20 History busPIRone HCl [Buspirone HCl] 1 tab PO TID 12/17/14 03/21/20 History Furosemide [Lasix] 20 mg PO DAILY PRN 12/18/14 03/21/20 History Levothyroxine Sodium [Synthroid] 75 mcg PO DAILY 12/18/14 03/21/20 History Cholecalciferol (Vitamin D3) 5,000 unit PO DAILY 08/16/15 03/21/20 History [Vitamin D3] Pantoprazole [Protonix] 40 mg PO BID 01/30/16 03/21/20 History FLUoxetine HCl [Prozac] 20 mg PO DAILY 08/13/17 03/21/20 History Gabapentin 100 mg PO BID 08/13/17 03/21/20 History clonazePAM 0.5 tab PO HS 08/13/17 03/21/20 History Fluticasone Propionate [Flonase 1 spray EA NARE BID PRN 02/11/18 03/21/20 History Nasal [place] [employer]] Aspirin [Ecotrin Low Strength] 81 mg PO DAILY 04/30/19 03/21/20 History Atorvastatin Calcium 40 mg PO DAILY 04/30/19 03/21/20 History Carvedilol 1 tab PO BID 04/30/19 03/21/20 History Ubidecarenone [CoQ-10] 100 mg PO DAILY 04/30/19 02/19/20 History Apixaban [Eliquis] 5 mg PO BID #40 tablet 02/20/20 03/21/20 Rx traMADol HCl [Ultram] 50 mg PO Q6H PRN tab 02/24/20 Rx - History PMHx: hypothyroid, GERD, HTN, hernia, COPD, renal disease, hx CVA, HFpEF on 55- 60%, chronic resp failure on 2L NC at baseline, depression, anxiety, hx DVT PSHx: back surgery, shoulder surgery, bilateral knee replacement, neck surgery, lap band, cholecystectomy, appendectomy, nephrectomy FHx: daughter has hx of blood clots Social: Lives at home with daughter. No TAD. - Review of Systems General: denies: fever/chills, fatigue Eyes: denies: eye pain, vision changes ENT: denies: nasal congestion, rhinorrhea Respiratory: reports: cough, shortness of breath Cardiovascular: reports: chest pain, palpitation, edema Gastrointestinal: denies: nausea, vomiting, abdominal pain Genitourinary: reports: dysuria, other (no hematuria; + malodorous urine) Skin: denies: rashes, itching Musculoskeletal: reports: pain (in B/L LEs). denies: arthritis/arthralgias Neurological: reports: weakness (generalized) Psychological: reports: anxiety, depression - Vital signs BP: 164/78, Pulse: 72, Resp: 23, Temp: 98.3 (Oral), Pain: 8, O2 sat: 96 on (Room Air) - Physical Exam Constitutional: NAD, awake, alert and oriented, well developed HEENT: normocephalic and atraumatic, EOMI, grossly normal vision, grossly normal hearing -HEENT: Dry mucous membranes Neck: supple, trachea midline -Chest: Ttp on anterior and lateral R side of chest and on R back Heart: RRR, normal S1/S2, no murmurs/rubs/gallops, pulses present (2+ b/l dp), no edema Lungs: CTAB, no respiratory distress, good air movement, no rales/rhonchi Abdomen: soft, non-tender, bowel sounds present, no masses/distention Musculoskeletal: normal structure, normal tone, ROM grossly normal Neurological: no focal deficit Skin: no rash/lesions, good turgor, capillary refill <2 seconds Heme/Lymphatic: no purpura, no petechia Psychiatric: normal mood and affect, good judgment and insight, intact recent and remote memory FMR H&P: Results - Labs Result Diagrams: 03/21/20 07:58 03/21/20 07:58 Lab results: WBC 9.9 thou/uL (4.8-10.8) 03/21/20 07:58 Hgb 9.8 g/dL (12.0-16.0) L 03/21/20 07:58 Hct 30.3 % (36.0-47.0) L 03/21/20 07:58 MCV 94.1 fL (78.0-98.0) 03/21/20 07:58 Plt Count 172 thou/uL (130-400) 03/21/20 07:58 Neutrophils % 83.0 % (42.0-75.0) H 03/21/20 07:58 Sodium 143 mmol/L (136-145) 03/21/20 07:58 Potassium 3.8 mmol/L (3.5-5.1) 03/21/20 07:58 Chloride 105 mmol/L (98-107) 03/21/20 07:58 Carbon Dioxide 31 mmol/L (23-31) 03/21/20 07:58 BUN 18 mg/dL (9.8-20.1) 03/21/20 07:58 Creatinine 0.92 mg/dL (0.6-1.1) 03/21/20 07:58 Glucose 113 mg/dL (83-110) H 03/21/20 07:58 Calcium 9.0 mg/dL (7.8-10.44) 03/21/20 07:58 Total Bilirubin 0.5 mg/dL (0.2-1.2) 03/21/20 07:58 AST 11 U/L (5-34) 03/21/20 07:58 ALT Less than 7 U/L (8-55) L 03/21/20 07:58 Alkaline Phosphatase 64 U/L (40-110) 03/21/20 07:58 B-Natriuretic Peptide 511.9 pg/mL (0-100) H 03/21/20 07:58 Serum Total Protein 6.8 g/dL (6.0-8.3) 03/21/20 07:58 Albumin 3.9 g/dL (3.4-4.8) 03/21/20 07:58 Lipase 17 U/L (8-78) 03/21/20 07:58 - EKG Interpretation EKG: NSR, borderline QT prolongation FMR H&P: A/P - Plan This is an 80F who presented with R-sided CP and SOB that have been worsening for 3 days in the setting of a known PE for which she is being treated. HFpEF Last echo 2014 with EF 50-55%, grade 1/3 diastolic dysfunction. - No clinical signs of volume overload. Appears mildly dehydrated on exam. - BNP 512, higher than in previous admissions - s/p 40mg IV Lasix in the ED - continue home Lasix in am - Strict I&O, daily weight, monitor fluid status Rt Pulmonary Embolism - Dx on 02/19/2020 - CTA in ED showed improving embolus - Continues to endorse CP from this time. No increased O2 requirement - Continue home Eliquis 5mg BID COPD Baseline 2L NC - Suspect respiratory symptoms related to CHF or PE, not COPD exacerbation - SpO2 in 90s at 1.5L NC in ED - not on home meds - continue to monitor resp status and consider addition of duonebs or inhaler CKD2 - Baseline Cr about 1.00. On admission, Cr 0.92 - Monitor with am BMP B/l LE pain 2/2 neuropathy and gout - Dx and tx for gout during inpt rehab stay. Says this pain has improved - continue home gabapentin Borderline QTc - QTc 470 on admission EKG - Avoid QT prolonging meds Normocytic anemia - Hgb 10, Hct 30, MCV 94 on admission. - Appears at baseline on chart review. May be due to CKD. - Last B12/folate wnl in 2017. - consider repeat folate/B12 Chronic problems: HTN: continue home coreg and lisinopril Hypothyroid: continue home levothyroxine GERD: continue home protonix Hx CVA w/R sided deficits: continue home ASA and plavix Anxiety/depression: continue home buspar, prozac, amytryptiline HLD: continue home fenofibrate, atorvastatin Dispo: tele obs, eLOS <48hrs. IVF: SL DVT ppx: home Eliquis GI ppx: home pantoprazole Diet: HH LS Code: DNI PCP: STACEY Wheeler FMR H&P: Upper Level - Pertinent history PCP: LYDIA Wheeler HPI: 80YOF with a PMH notable for HFpEF, HTN, COPD on 2L at baseline at home, & a recently diagnosed PE on Eliquis who was brought from home via EMS for multiple complaints. Patient reports not feeling well for the last 3 days with her most concerning complaint being R-sided chest pain similar to pain she had when she was diagnosed with her PE. She also reports a dry cough which she also had at that time that exacerbates her chest pain and SOB. She states the pain has progressively worsened over the last few days which prompted her coming in for evaluation. Endorses associated abdominal & LE edema as well as an ~20 pound weight gain since d/c from rehab. Denies any associated fever/chills, N/V, myalgias, or abdominal pain. ED course: 50 mcg fentanyl, nitro paste, 40mg IV Lasix, 324mg ASA, all meds ordered but not yet given by time of exam - Pertinent findings Labs/Imaging: BNP 511 CXR: NAF CTA chest: Improved R sided PE, small 4mm LLL nodule, no consolidation or effusions noted Rt LE US: No DVT EKG: NSR @ 72 bpm, QTc 473 ms REVIEW OF SYSTEMS: 12 point ROS negative other than what was mentioned in HPI. Vitals: HR: 70 BP: 153/51 RR: 26 O2 sat 96% on 1.5L NC Tmax: 98.3F PHYSICAL EXAMINATION: General: Sitting up in bed in NAD HEENT: normocephalic atraumatic Neck: Supple. Full ROM. Heart/Cardiovascular System: RRR, no murmurs Lungs/Respiratory System: CTAB Abdomen/Gastro-Intestinal System: soft w/ no mild suprapubic abdominal tendernes s, normal bowel sounds, no distension or guarding noted Extremities: Warm extremities. No edema noted. Neuro: religion instructor grossly intact; non-focal Skin: No rashes noted. - Plan Date/Time: 03/21/20 0756 I, Thalia Davis, have evaluated this patient and agree with findings/plan as outlined by advisory internship resident. Pertinent changes/additions are listed here. A/P: #Acute on chronic CHF exacerbation: -Clinically, patient does not appear volume overloaded & CXR & CT w/o any noted effusions. On baseline O2 requirements. Endorses medication & diet compliance since discharge from rehab. However, BNP elevated at 511 on presentation so called to admit for a CHF exacerbation. s/p 40mg IV Lasix in ER. Will continue home diuretic regimen & monitor strict I&Os & QD weights. If an actual exacerbation it is very mild. #PE: -Aware, improved on CTA chest today. Continue home eliquis & home O2. #Pleuritic chest pain: -2/2 PE; Will give 1x dose IV toradol and continue to a PO regimen. #Hx CVA w/ R-sided deficits -Aware, will have PT & OT work with patient while in hospital and continue home meds. #HTN -Will resume home meds as tolerated by patient. #CKD III -Renal function appears at baseline. Continue monitoring & renally dosing meds PRN. #Normocytic anemia -H/H appears within baseline range. Likely 2/2 CKD. Will continue to monitor and #COPD on 2L NC at baseline at home -Not in acute exacerbation. Will resume home meds and have PRN Duonebs available as well. #Anxiety/Depression: Resume home meds. #HLD: home fenofibrate, atorvastatin #Neuropathy: Resume home meds PCP: LYDIA Wheeler ABx: None IVFs: SL VTE PPX: Home Eliquis GI PPX: Home Protonix Code status: cardiac only-DNI Dispo: Will admit to telemetry for close observation overnight. Anticipated LOS < 2 midnights pending clinical course. Addendum - Attending - Attending Attestation Date/Time: 03/21/20 2389 I personally evaluated the patient and discussed the management with Dr. Matthieu Izaguirre/Ryan. I agree with the History, Examination, Assessment and Plan documented above with any addition or exceptions noted below. Patient here for acute pleuritic pain and associated dyspnea that is likely attributable to her recent history of PE. Will continue diuretics, anticoagulation, and attempt to get her pain under control. No O2 requirement, hopeful to discharge tomorrow with mild diuresis and pain improvement.
[2020-03-21] MEDS ORDERED: Fluticasone Propionate Nasal Spray 16 gm Bottle NASAL PRN (12:34)
[2020-03-21] MEDS ORDERED: Furosemide 20 MG TAB PO PRN (12:34)
[2020-03-21] MEDS ORDERED: Aspirin Chewable 81 MG TAB ONE (12:51)
[2020-03-21] MEDS ORDERED: Nitroglycerin 2% Ointment 1 INCH/1 GM Packet ONE (12:51)
[2020-03-21] MEDS ORDERED: Furosemide 40 MG/4 ML VIAL ONE (12:51)
[2020-03-21] MEDS ORDERED: Fentanyl 100 MCG/2 ML VIAL ONE (12:51)
[2020-03-21 12:53] LABS: Troponin I 0.013 ng/mL (< 0.028)
[2020-03-21] MEDS: busPIRone HCl 10 MG TAB PO SCH ×2 (18:06→23:33)
[2020-03-21 18:07] LABS: SARS-CoV-2 MS2 Positive; SARS-CoV-2 N Gene Negative; SARS-CoV-2 S Gene Negative; SARS-CoV-2 by NAA Not Detected (NotDetected); SARS-CoV-2 orf1ab Negative
[2020-03-21] MEDS ORDERED: Ondansetron ODT 8 MG TAB SL PRN (22:40)
[2020-03-21] MEDS ORDERED: Ketorolac Tromethamine 30 MG/ML VIAL IVP SCH (22:45)
[2020-03-21] MEDS: Carvedilol 25 MG TAB PO SCH (23:31)
[2020-03-21] MEDS: clonazePAM 0.5 MG TAB PO SCH (23:32)
[2020-03-21] MEDS: Fenofibrate Nanocrystallized 145 MG TAB PO SCH (23:32)
[2020-03-21] MEDS: Gabapentin 100 MG CAP PO SCH (23:33)
[2020-03-21] MEDS: Amitriptyline HCl 25 MG TAB PO SCH (23:35)
[2020-03-22 03:45] VITALS: BMI 39.8
[2020-03-22 05:16] LABS: Anion Gap 17 mmol/L (10-20); BUN (Urea Nitrogen) 14 mg/dL (9.8-20.1); Calc. Creatinine Clearance 82 mL/min (70-130); Calcium 8.7 mg/dL (7.8-10.44); Carbon Dioxide 25 mmol/L (23-31); Chloride 102 mmol/L (98-107); Glucose 98 mg/dL (83-110); Potassium 3.6 mmol/L (3.5-5.1); Sodium 140 mmol/L (136-145)
[2020-03-22 05:23] LABS: Troponin I Less than 0.010 ng/mL (< 0.028)
[2020-03-22] MEDS: Levothyroxine Sodium 75 MCG TAB PO SCH (06:55)
--- NOTE | 2020-03-22 07:01 | PDOC.FM ---
- Subjective Subjective: Headache overnight improved with toradol. Nitro patch still in place, and headache has returned this AM. No photophobia, no focal weakness. Endorses back pain "from my lung clot" which she usually treats at home with IcyHot cream and gets adequate relief from this. - Objective Vital Signs & Weight: Vital Signs (12 hours) Temp Pulse Resp BP Pulse Ox 03/21/20 23:56 74 13 116/55 L 94 L 03/21/20 20:00 96.5 F L 72 12 151/67 H 95 Weight Weight 98.7 kg Result Diagrams: 03/21/20 07:58 03/22/20 04:05 Phys Exam - Physical Examination Constitutional: NAD HEENT: moist MMs Neck: supple Respiratory: clear to auscultation bilateral Cardiovascular: RRR, no significant murmur Gastrointestinal: soft Musculoskeletal: no edema, pulses present Neurological: non-focal, moves all 4 limbs Psychiatric: normal affect, A&O x 3 Skin: no rash, normal turgor Dx/Plan - Plan Plan: This is an 80F who presented with R-sided CP and SOB that have been worsening for 3 days in the setting of a known PE for which she is being treated. HFpEF without exacerbation Last echo 2014 with EF 50-55%, grade 1/3 diastolic dysfunction. No clinical signs of exacerbation or volume overload. BNP 512 on admission. - continue strict I&O - continue home dose of lasix, no need for increased diuretics at this time Rt Pulmonary Embolism - Dx on 02/19/2020 - CTA in ED showed improving embolus - Continues to endorse CP from this time. No increased O2 requirement - Continue home Eliquis 5mg BID - lidocaine patch for back pain Headache Non-focal exam. Likely due to nitro patch. - discontinue nitro patch - tylenol PRN for headache or pain COPD Baseline 2L NC at home - Suspect respiratory symptoms related to PE, not COPD exacerbation - SpO2 in 90s at 1.5L NC in ED - not on home meds CKD2 - Baseline Cr about 1.00. On admission, Cr 0.92 - Monitor with am BMP B/l LE pain 2/2 neuropathy and gout - Dx and tx for gout during inpt rehab stay. Says this pain has improved - continue home gabapentin Borderline QTc - QTc 470 on admission EKG - Avoid QT prolonging meds Normocytic anemia - Hgb 10, Hct 30, MCV 94 on admission. - Appears at baseline on chart review. May be due to CKD. - Last B12/folate wnl in 2018. - consider repeat folate/B12 Chronic problems: HTN: continue home coreg and lisinopril Hypothyroid: continue home levothyroxine GERD: continue home protonix Hx CVA w/R sided deficits: continue home ASA and plavix Anxiety/depression: continue home buspar, prozac, amytryptiline HLD: continue home fenofibrate, atorvastatin Dispo: likely discharge to home today IVF: SL DVT ppx: home Eliquis GI ppx: home pantoprazole Diet: HH LS Code: DNI PCP: STACEY Wheeler Addendum - Attending - Attending Attestation Date/Time: 03/22/20 1320 I personally evaluated the patient and discussed the management with Dr. Palma. I agree with the History, Examination, Assessment and Plan documented above with any addition or exceptions noted below. Patient feeling improved. Her pain complaint is related to her recent VTE. Continue home meds. Work to discharge home.
[2020-03-22] MEDS: Cholecalciferol 1,000 UNITS (25 MCG) TAB PO SCH (09:10)
[2020-03-22] MEDS: Clopidogrel Bisulfate 75 MG TAB PO SCH (09:11)
[2020-03-22] MEDS: Aspirin 81 mg Enteric Coated Tablet PO SCH (09:11)
[2020-03-22] MEDS: Gabapentin 100 MG CAP PO SCH ×2 (09:11→21:02)
[2020-03-22] MEDS: busPIRone HCl 10 MG TAB PO SCH ×3 (09:11→21:02)
[2020-03-22] MEDS: Carvedilol 25 MG TAB PO SCH ×2 (09:12→21:02)
[2020-03-22] MEDS: Atorvastatin Calcium 40 MG TAB PO SCH (09:12)
[2020-03-22] MEDS: FLUoxetine HCl 20 MG CAP PO SCH (09:12)
[2020-03-22] MEDS ORDERED: Apixaban 5 MG TAB PO SCH ×2 (09:30→21:00)
[2020-03-22] MEDS: Acetaminophen 325 MG TAB PO PRN ×2 (10:39→21:00)
[2020-03-22] MEDS: Lidocaine 5% Patch TD PRN (10:39)
[2020-03-22] MEDS: Fenofibrate Nanocrystallized 145 MG TAB PO SCH (21:01)
[2020-03-22] MEDS: clonazePAM 0.5 MG TAB PO SCH (21:02)
[2020-03-22] MEDS: Apixaban 5 MG TAB PO SCH (21:02)
[2020-03-22] MEDS: Amitriptyline HCl 25 MG TAB PO SCH (21:02)
[2020-03-22] MEDS: Lidocaine Patch Removal 1 EACH TOP SCH (21:04)
[2020-03-23] MEDS: Levothyroxine Sodium 75 MCG TAB PO SCH (06:03)
--- NOTE | 2020-03-23 06:04 | PDOC.FM ---
- Subjective Subjective: Overnight team notified of low urine output; approximately 400 cc out after straight cath, per I/O only 480 in yesterday. Reports some pain with neuropathy in bilateral lower extremities overnight. Otherwise, she is feeling well this morning. No new complaints. Slept well overnight. Agrees she has not been drinking very much water because she likes to drink it with ice which she has not had. - Objective Vital Signs & Weight: Vital Signs (12 hours) Temp Pulse Resp BP BP Pulse Ox 03/23/20 04:00 97.4 F L 66 20 119/58 L 96 03/22/20 20:00 97.7 F 68 16 142/60 H 95 Weight Weight 98.7 kg I&O: 03/21/20 03/22/20 03/23/20 06:59 06:59 06:59 Intake Total 480 Output Total 400 Balance 80 Result Diagrams: 03/21/20 07:58 03/22/20 04:05 Phys Exam - Physical Examination Constitutional: NAD dry mucous membranes Neck: supple Respiratory: clear to auscultation bilateral Cardiovascular: RRR, no significant murmur Gastrointestinal: soft Musculoskeletal: no edema, pulses present Neurological: moves all 4 limbs Psychiatric: normal affect, A&O x 3 Dx/Plan - Plan Plan: This is an 80F who presented with R-sided CP and SOB that have been worsening for 3 days in the setting of a known PE for which she is being treated. HFpEF without exacerbation Last echo 2014 with EF 50-55%, grade 1/3 diastolic dysfunction. No clinical signs of exacerbation or volume overload. BNP 512 on admission. - continue strict I&O - continue home dose of lasix, no need for increased diuretics at this time Mild dehydration Dry mucous membranes on exam. - encouraged increased PO intake Rt Pulmonary Embolism - Dx on 02/19/2020 - CTA in ED showed improving embolus - Continues to endorse CP from this time. No increased O2 requirement - Continue home Eliquis 5mg BID - lidocaine patch for back pain COPD Baseline 2L NC at home - Suspect respiratory symptoms related to PE, not COPD exacerbation - SpO2 in 90s at 1.5L NC in ED - not on home meds CKD2 - Baseline Cr about 1.00. On admission, Cr 0.92 B/l LE pain 2/2 neuropathy and gout - walking program consulted - will increased gabapentin to 200 mg BID Borderline QTc - QTc 470 on admission EKG - Avoid QT prolonging meds Normocytic anemia - Hgb 10, Hct 30, MCV 94 on admission. - Appears at baseline on chart review. May be due to CKD. - Last B12/folate wnl in 2018 Chronic problems: HTN: continue home coreg and lisinopril Hypothyroid: continue home levothyroxine GERD: continue home protonix Hx CVA w/R sided deficits: continue home ASA and plavix Anxiety/depression: continue home buspar, prozac, amytryptiline HLD: continue home fenofibrate, atorvastatin Dispo: Medically stable for discharge at any time. Consulted CM yesterday for alf placement per patient and family request. Will likely transfer to medical if she will be pending placement for a prolonged period. IVF: SL DVT ppx: home Eliquis GI ppx: home pantoprazole Diet: HH LS Code: DNI PCP: STACEY Wheeler Addendum - Attending - Attending Attestation Date/Time: 03/23/20 5566 I personally evaluated the patient and discussed the management with Dr. Palma. I agree with the History, Examination, Assessment and Plan documented above with any addition or exceptions noted below.
[2020-03-23] MEDS: Cholecalciferol 1,000 UNITS (25 MCG) TAB PO SCH (09:10)
[2020-03-23] MEDS: Aspirin 81 mg Enteric Coated Tablet PO SCH (09:10)
[2020-03-23] MEDS: Clopidogrel Bisulfate 75 MG TAB PO SCH (09:11)
[2020-03-23] MEDS: Carvedilol 25 MG TAB PO SCH ×2 (09:11→22:21)
[2020-03-23] MEDS: Gabapentin 100 MG CAP PO SCH ×2 (09:11→22:20)
[2020-03-23] MEDS: Apixaban 5 MG TAB PO SCH ×2 (09:12→22:19)
[2020-03-23] MEDS: FLUoxetine HCl 20 MG CAP PO SCH (09:12)
[2020-03-23] MEDS: busPIRone HCl 10 MG TAB PO SCH ×3 (09:12→22:21)
[2020-03-23] MEDS: Atorvastatin Calcium 40 MG TAB PO SCH (09:12)
[2020-03-23] MEDS ORDERED: Lorazepam 0.5 MG TAB PO PRN (11:48)
[2020-03-23] MEDS: Lidocaine 5% Patch TD PRN (14:47)
[2020-03-23] MEDS: Acetaminophen 325 MG TAB PO PRN ×2 (14:53→22:19)
[2020-03-23] MEDS ORDERED: Menthol/Camphor Lotion 222 ml Bottle TOP PRN (18:48)
[2020-03-23] MEDS: Amitriptyline HCl 25 MG TAB PO SCH (22:20)
[2020-03-23] MEDS: clonazePAM 0.5 MG TAB PO SCH (22:20)
[2020-03-23] MEDS: Fenofibrate Nanocrystallized 145 MG TAB PO SCH (22:21)
[2020-03-23] MEDS: Lidocaine Patch Removal 1 EACH TOP SCH (22:21)
[2020-03-24] MEDS: Levothyroxine Sodium 75 MCG TAB PO SCH (04:59)
--- NOTE | 2020-03-24 06:38 | PDOC.FM ---
- Subjective Subjective: No acute overnight events. Resting comfortably. Occasional pains from her neuropathy, otherwise no complaints. She feels ready to go to group home today, is anxious to meet her roommate. - Objective Vital Signs & Weight: Vital Signs (12 hours) Temp Pulse Resp BP Pulse Ox 03/24/20 02:51 97.6 F 72 18 121/66 94 L 03/23/20 20:00 97.9 F 76 20 137/60 97 Weight Weight 98.248 kg I&O: 03/22/20 03/23/20 03/24/20 06:59 06:59 06:59 Intake Total 780 120 Output Total 800 600 Balance -20 -480 Result Diagrams: 03/21/20 07:58 03/22/20 04:05 Phys Exam - Physical Examination Constitutional: NAD HEENT: moist MMs Neck: supple no respiratory distress Musculoskeletal: no edema Neurological: moves all 4 limbs Psychiatric: A&O x 3 Skin: no rash, normal turgor Dx/Plan - Plan Plan: This is an 80F who presented with R-sided CP and SOB that have been worsening for 3 days in the setting of a known PE for which she is being treated. HFpEF without exacerbation Last echo 2014 with EF 50-55%, grade 1/3 diastolic dysfunction. No clinical signs of exacerbation or volume overload. BNP 512 on admission. - continue strict I&O - continue home dose of lasix, no need for increased diuretics at this time Mild dehydration Dry mucous membranes on exam. - encouraged increased PO intake Rt Pulmonary Embolism - Dx on 02/19/2020 - CTA in ED showed improving embolus - Continues to endorse CP from this time. No increased O2 requirement - Continue home Eliquis 5mg BID - lidocaine patch for back pain COPD - continue home O2 2LNC CKD2 - Baseline Cr about 1.00. On admission, Cr 0.92 B/l LE pain 2/2 neuropathy and gout - PT for walking - gabapentin BID Borderline QTc - QTc 470 on admission EKG - Avoid QT prolonging meds Normocytic anemia - Hgb 10, Hct 30, MCV 94 on admission. - Appears at baseline on chart review. May be due to CKD. - Last B12/folate wnl in 2018 Chronic problems: HTN: continue home coreg and lisinopril Hypothyroid: continue home levothyroxine GERD: continue home protonix Hx CVA w/R sided deficits: continue home ASA and plavix Anxiety/depression: continue home buspar, prozac, amytryptiline HLD: continue home fenofibrate, atorvastatin Dispo: Medically stable for discharge at any time, anticipated discharge to [facility] today IVF: SL DVT ppx: home Eliquis GI ppx: home pantoprazole Diet: HH LS Code: DNI PCP: STACEY Wheeelr Addendum - Attending - Attending Attestation Date/Time: 03/24/20 2015 I personally evaluated the patient and discussed the management with Dr. Palma. I agree with the History, Examination, Assessment and Plan documented above with any addition or exceptions noted below. Patient doing well. Stable for discharge to swing bed for continued therapy.
[2020-03-24] MEDS: Apixaban 5 MG TAB PO SCH (07:59)
[2020-03-24] MEDS: Cholecalciferol 1,000 UNITS (25 MCG) TAB PO SCH (07:59)
[2020-03-24] MEDS: busPIRone HCl 10 MG TAB PO SCH (07:59)
[2020-03-24] MEDS: FLUoxetine HCl 20 MG CAP PO SCH (07:59)
[2020-03-24] MEDS: Atorvastatin Calcium 40 MG TAB PO SCH (07:59)
[2020-03-24] MEDS: Carvedilol 25 MG TAB PO SCH (07:59)
[2020-03-24] MEDS: Gabapentin 100 MG CAP PO SCH (08:00)
[2020-03-24] MEDS: Aspirin 81 mg Enteric Coated Tablet PO SCH (08:00)
[2020-03-24] MEDS: Clopidogrel Bisulfate 75 MG TAB PO SCH (08:00)
[2020-03-24] MEDS: Acetaminophen 325 MG TAB PO PRN (08:05)
[2020-03-24 11:29] VITALS: TEMP 98
[2020-03-24 11:50] VITALS: BP 131/59
--- NOTE | 2020-03-25 23:54 | PQF ---
Dear : Tomy Green Date 03/25/2020 Please exercise your independent, professional judgment in responding to the clarification form. Clinical indicators are provided on the bottom of this form for your review Can you please further clarify the conflicting diagnosis of the patient? Please check appropriate box(es): Conflicting documentation was noted in the Medical Record; please clarify if patient is being treated/monitored for: [ ] Acute on chronic CHF exacerbation [ X ] HFpEF without exacerbation [ ] Other diagnosis please specify [ ] Unable to determine Physician Signature: Date/Time: For continuity of documentation, please document condition throughout progress notes and discharge summary. Thank You. To be completed by CDI/Coding staff for physician review: Present Clinical Indicators - Signs / Symptoms / Labs Results and Location in Medical Record [ x ] HFpEF without exacerbation Family Med PN 03/23 pg.2 [ x ] Acute on chronic CHF exacerbation H and P pg.7 [ x ] CP, SOB H and P pg.1 [ x ] Clinically patient does not appear volume overload and CXR and CT w/o any noted effusion H and P pg.7 [ x ] EF 50-55%, no clinical signs of exacerbation or overload Family Med PN 03/23 pg.2 [ x ] BNP 512 on admission Family Med PN 03/23 pg.2 Present Risk Factors Results and Location in Medical Record [ x ] HTN H and P pg.2 [ x ] GERD H and P pg.2 [ x ] COPD H and P pg.2 [ x ] CKD H and P pg.2 [ x ] CVA H and P pg.2 [ x ] Chronic Respiratory failure H and P pg.2 [ x ] PE H and P pg.4 Present Treatments Results and Location in Medical Record [ x ] IV Lasix 40 mg IV MAR [ x ] Chest Thorax CTA 03/21 [ x ] Chest X ray 03/21 CDS/[employer]man Signature: Catracho Townsend Erisjohnleslie Phone #: ext [phone] Date 03/25/2020 This is a permanent part of the Medical Record [facility]
--- NOTE | 2020-03-26 12:10 | DIS ---
DATE OF ADMISSION: 03/23/2020 DATE OF DISCHARGE: 03/24/2020 RESIDENT: Lakesha Palma DO. DISCHARGE ATTENDING: Tomy Marques MD CONSULTS: None. PROCEDURES: CTA chest, slight interval decreased pulmonary embolism load from partial resorption. No new pulmonary consolidation. Small 4-mm nodule left lower lobe, relatively solid. PRIMARY DIAGNOSIS: Right pulmonary embolism. SECONDARY DIAGNOSES: 1. Heart failure, preserved ejection fraction. 2. Chronic obstructive pulmonary disease. 3. Chronic kidney disease 2. 4. Bilateral lower extremity neuropathy. 5. Normocytic anemia. 6. Hypertension. 7. Hypothyroid. 8. Gastroesophageal reflux disease. 9. History of cerebrovascular accident with right-sided deficits. 10. Anxiety, depression. 11. Hyperlipidemia. DISCHARGE MEDICATIONS: 1. Plavix 75 mg p.o. daily. 2. Amitriptyline 25 mg p.o. at bedtime. 3. Fenofibrate 1 tablet p.o. q.p.m., 160 mg. 4. BuSpar 10 mg 1 tablet p.o. t.i.d. 5. Levothyroxine 75 mcg p.o. daily. 6. Lasix 20 mg p.o. daily p.r.n. edema. 7. Vitamin D3 of 5000 units p.o. daily. 8. Protonix 40 mg p.o. b.i.d. 9. Fluoxetine 60 mg p.o. daily. 10. Gabapentin 100 mg p.o. b.i.d. 11. Clonazepam 0.5 mg 1/2 tablet p.o. at bedtime. 12. Fluticasone 1 spray to each naris b.i.d. p.r.n. 13. CoQ10 of 100 mg p.o. daily. 14. Aspirin 81 mg p.o. daily. 15. Carvedilol 25 mg 1 tablet p.o. b.i.d. 16. Atorvastatin 40 mg p.o. daily. 17. Eliquis 5 mg p.o. b.i.d. 18. Tramadol 50 mg p.o. q.6 hours p.r.n. HISTORY OF PRESENT ILLNESS AND HOSPITAL COURSE: Ms. Lee is an 80-year-old female, who was brought by EMS, who reported worsening right-sided chest pain and shortness of breath with some radiation of pain to the back. She describes the pain as the same pain she found when she presented with pulmonary embolism approximately 1 month ago. She reported that nothing made her pain better or worse at home. After her previous admission, she had been in inpatient rehab and recently returned to home just prior to presentation for this admission. In the ER, she was found to have a BNP of 512, which was somewhat higher than previous admission. Because of her BNP and her history of heart failure, she was given 40 mg of IV Lasix in the ER. On her admission exam, she did not have any signs of volume overload. In fact, she appeared mildly dehydrated on exam. This is considered not to be an exacerbation of heart failure. She did have a CTA of the chest as above, which showed no worsening of the pulmonary embolism and in fact, showed some interval improvement of her pulmonary embolism with no acute changes. She was admitted to telemetry for cardiac monitoring. Her troponins were trended, which were negative x3, and overall, she was stable for discharge by the next morning. However, upon discharge, we received a phone call from her daughter indicating that she felt her mother was unsafe to go home as she is left alone by herself in most of the day the patient has some mild dementia and has engaged in unsafe activities such as leaving the stove on. She has been trying to get long term placement from outpatient, but has not yet been successful. Both patient and her daughter desired placement in a long term. Case Management was then consulted. Throughout the rest of her admission, her pain was treated and her back pain which she presented with was improved with lidocaine patches. Eventually, she was placed into the [facility]. She remained stable throughout her entire admission. DISPOSITION: Stable. DISCHARGE INSTRUCTIONS: 1. Location: [facility] in [place]. 2. Diet: Heart-healthy diet. 3. Activity: As tolerated. 4. Followup: Follow up with PCP, Dr. Wheeler. Job ID: [id number]
--- NOTE | 2020-03-26 14:57 | EKG ---
Test Reason : Blood Pressure : / mmHG Vent. Rate : 072 BPM Atrial Rate : 072 BPM P-R Int : 140 ms QRS Dur : 076 ms QT Int : 432 ms P-R-T Axes : 000 001 078 degrees QTc Int : 473 ms Normal sinus rhythm Low voltage QRS Nonspecific ST and T wave abnormality Prolonged QT Abnormal ECG Confirmed by YOVANI ESCALANTE DO ([id number]), telegraph editor LEANA BADILLO ([id number]) on 03/26/2020 2:56:29 PM Referred By: Confirmed By:YOVANI ESCALANTE DO
== END 2020-03-24 13:16 | DRG 176 ==
LOC: ERS 07:29 → ERHOLD 12:20 → 2NO 12:20 → OBSVTOIN 03-23 19:11
PROVIDERS: ADMIT Student in an Organized Health Care Education/Training Program; ATTEND Student in an Organized Health Care Education/Training Program
DX: I26.99 Other pulmonary embolism without acute cor pulmonale (principal); I13.0 Hypertensive heart and chronic kidney disease with heart failure and stage 1 through stage 4 chronic kidney disease, or unspecified chronic kidney disease; J96.10 Chronic respiratory failure, unspecified whether with hypoxia or hypercapnia; I69.351 Hemiplegia and hemiparesis following cerebral infarction affecting right dominant side; I50.32 Chronic diastolic (congestive) heart failure; Z20.828 Contact with and (suspected) exposure to other viral communicable diseases; K21.9 Gastro-esophageal reflux disease without esophagitis; E03.9 Hypothyroidism, unspecified; J44.9 Chronic obstructive pulmonary disease, unspecified; Z96.653 Presence of artificial knee joint, bilateral; G62.9 Polyneuropathy, unspecified; M10.9 Gout, unspecified; D63.1 Anemia in chronic kidney disease; F32.9 Major depressive disorder, single episode, unspecified; F41.9 Anxiety disorder, unspecified; E78.5 Hyperlipidemia, unspecified; N18.30 Chronic kidney disease, stage 3 unspecified; E86.0 Dehydration; Z90.49 Acquired absence of other specified parts of digestive tract; Z99.81 Dependence on supplemental oxygen; Z79.01 Long term (current) use of anticoagulants; Z88.1 Allergy status to other antibiotic agents; Z88.8 Allergy status to other drugs, medicaments and biological substances; Z79.899 Other long term (current) drug therapy; Z79.890 Hormone replacement therapy; Z79.82 Long term (current) use of aspirin; Z86.718 Personal history of other venous thrombosis and embolism
CPT/HCPCS: 36415; 51701; 51798; 71045; 71275; 80048; 80053; 83690; 83880; 84484; 85025; 87635; 93005; 96374; 96375; G0378; J1885; J1940; J3010; Q0162; Q9967; U0003

== ENCOUNTER 2020-04-09 20:26 | Inpatient (IN) | payer MEDICARE, MEDICAID ==
[2020-04-09] MEDS ORDERED: Ondansetron ODT 4 MG TAB PO PRN (20:35)
[2020-04-09] MEDS ORDERED: Acetaminophen 650 MG Suppository PR PRN (20:35)
[2020-04-09] MEDS ORDERED: Acetaminophen 325 MG TAB PO PRN (20:35)
[2020-04-09] MEDS ORDERED: Ondansetron PF 4 MG/2 ML Vial IVP PRN (20:35)
[2020-04-09 21:38] LABS: CKMB 0.8 ng/mL (0-6.6)
--- NOTE | 2020-04-09 22:31 | PDOC.FPRHP ---
- History of Present Illness Chief Complaint: palpitations, dyspnea, L sided CP History of Present Illness: This is an 80F with a PMH notable for HFpEF, hypothyroidism presenting as transfer from [facility] ED after having an episode of palpitations, dyspnea, and L sided CP that lasted >1hr. Per the ED handoff, the pt's HR was up to 160 at the [place]. In the ED, the highest recorded HR was 97 and she received 5mg metoprolol tartrate. She was also found to have an indeterminate trop of 0.034 which is higher than in previous admissions. Since then, the pt has not had palpitations. Her CP is difficult to distinguish from R-sided CP she has had since she was dx with a PE in Jan. She states the R-sided CP she is having is t he same as that but that the L-sided CP was new. She is ttp on her chest, b/l. She has been told in the past that she has tachycardia but has never been told she has AFib or any arrhythmia. Her api product manager is Dr. Hill. She is satting 100% on 2L NC, c/w her home requirement. She feels her abdomen looks bigger than nml and states this is where she accumulates fluid but her BNP was 106. Her TSH was 2.87. ED Course: [facility] ED: 5mg metoprolol tartrate - Allergies/Adverse Reactions Allergies Allergy/AdvReac Type Severity Reaction Status Date / Time amoxicillin trihydrate Allergy severe Verified 04/09/20 22:45 [From Augmentin] yeast infection potassium clavulanate Allergy severe Verified 04/09/20 22:45 [From Augmentin] yeast infection sulfisoxazole AdvReac Severe Nausea Verified 04/09/20 22:45 [From Gantrisin] - Home Medications Medication Instructions Recorded Confirmed Type Amitriptyline HCl [Elavil] 25 mg PO HS 04/27/13 04/09/20 History Clopidogrel Bisulfate [Plavix] 75 mg PO DAILY 04/27/13 04/09/20 History busPIRone HCl [Buspirone HCl] 1 tab PO TID 12/17/14 04/09/20 History Furosemide [Lasix] 20 mg PO DAILY PRN 12/18/14 04/09/20 History Levothyroxine Sodium [Synthroid] 75 mcg PO DAILY 12/18/14 04/09/20 History Pantoprazole [Protonix] 40 mg PO BID 01/30/16 04/09/20 History FLUoxetine HCl [Prozac] 60 mg PO DAILY 08/13/17 04/09/20 History Gabapentin 100 mg PO BID 08/13/17 04/09/20 History clonazePAM 0.5 tab PO HS 08/13/17 04/09/20 History Aspirin [Ecotrin Low Strength] 81 mg PO DAILY 04/30/19 04/09/20 History Atorvastatin Calcium 40 mg PO DAILY 04/30/19 04/09/20 History Carvedilol 1 tab PO BID 04/30/19 04/09/20 History Apixaban [Eliquis] 5 mg PO BID #40 tablet 02/20/20 04/09/20 Rx traMADol HCl [Ultram] 50 mg PO Q6H PRN tab 02/24/20 04/09/20 Rx - History PMHx: PMHx: hypothyroid, GERD, HTN, hernia, COPD, renal disease, hx CVA, HFpEF on 55-60%, chronic resp failure on 2L NC at baseline, depression, anxiety, hx DVT PSHx: back surgery, shoulder surgery, bilateral knee replacement, neck surgery, lap band, cholecystectomy, appendectomy, nephrectomy FHx: daughter has hx of blood clots Social: Lives at [place]. No TAD. - Review of Systems General: denies: fever/chills, night sweats Eyes: denies: eye pain, vision changes ENT: denies: nasal congestion, rhinorrhea Respiratory: reports: cough, shortness of breath Cardiovascular: reports: chest pain, palpitation Gastrointestinal: reports: abdominal pain. denies: vomiting Genitourinary: denies: dysuria, polyuria Skin: denies: rashes, jaundice Musculoskeletal: denies: pain, swelling Neurological: denies: syncope, seizure Psychological: reports: anxiety, depression - Vital signs BP: 130/60 HR: 74 RR: 20 Tmax: 97.6F Pox: 100% on 2L NC - Physical Exam Constitutional: NAD, awake, alert and oriented, well developed HEENT: normocephalic and atraumatic, EOMI, grossly normal vision, grossly normal hearing, MMM Neck: supple, trachea midline Chest: no-tender to palpation, no lesions -Chest: Chest ttp b/l Heart: RRR, normal S1/S2, no murmurs/rubs/gallops, no edema Lungs: CTAB, no respiratory distress, good air movement Abdomen: soft, bowel sounds present, no masses/distention -Abdomen: Lower abdomen ttp Musculoskeletal: normal structure, normal tone, ROM grossly normal Neurological: no focal deficit Skin: no rash/lesions, good turgor, capillary refill <2 seconds Heme/Lymphatic: no unusual bruising or bleeding, no purpura Psychiatric: normal mood and affect, good judgment and insight, intact recent and remote memory FMR H&P: Results - Labs Result Diagrams: 04/10/20 04:22 04/10/20 04:22 Lab results: H/H 11.9/38 c/w previous admissions Cr 0.81, nml. Baseline ~1.00 BNP 106.5, lower than most recent admission but higher than others Trop 0.034 > trend pending TSH 2.87, nml LA 1.9, nml CK-MB (CK-2) 0.8 ng/mL (0-6.6) 04/09/20 20:47 - Radiology Interpretation Chest x-ray Status: image reviewed by me, report reviewed by me (no acute findings) FMR H&P: A/P - Plan This is an 80F who presented for acute palpitations, dyspnea, and L-sided CP. Indeterminate trops - Trop 0.034, higher than in previous admissions - Trend pending - On tele. Repeat if CP Tachycardia, resolved - Reportedly up to 160 at NH - On tele - TSH nml - Continue home meds HFpEF Last echo 2014 with EF 50-55%, grade 1/3 diastolic dysfunction. - No clinical signs of volume overload. Appears mildly dehydrated on exam. - BNP 106, lower than in previous admissions - Strict I&O, daily weight, monitor fluid status - Repeat echo ordered Rt Pulmonary Embolism - Dx on 02/19/2020 - Continues to endorse CP from this time. No increased O2 requirement (baseline 2L NC) - Continue home Eliquis 5mg BID COPD Baseline 2L NC - Do not suspect COPd exacerbation at this time - continue to monitor resp status and consider addition of duonebs or inhaler CKD2 - Baseline Cr about 1.00. On admission, Cr 0.81 B/l LE pain 2/2 neuropathy and gout - continue home gabapentin - assess for gout if LE pain worsens/changes Hx of borderline QTc - Monitor on tele - Caution with QT prolonging meds Normocytic anemia - Hgb 12, Hct 31, MCV 94. - Appears at baseline on chart review. May be due to CKD. Chronic problems: HTN: continue home coreg and lisinopril Hypothyroid: continue home levothyroxine GERD: continue home protonix Hx CVA w/R sided deficits: continue home ASA and plavix Anxiety/depression: continue home buspar, prozac, amytryptiline HLD: continue home fenofibrate, atorvastatin Dispo: tele obs, eLOS <48hrs. IVF: SL DVT ppx: home Eliquis GI ppx: home pantoprazole Diet: HH LS Code: DNI PCP: STACEY Wheeler FMR H&P: Upper Level - Plan Date/Time: 04/09/202230 I, rFancisca Rosa MD, have evaluated this patient and agree with findings/plan as outlined by international freight forwarder resident. Pertinent changes/additions are listed here. This is an 80yo F with PMH of CHF, hypothyroidism, GERD, anemia, COPD, HLD who presents today after an episode of palpations at her [facility]. She reports that her HR got up to 180s at the [facility]. She felt very SOB and had chest pain during this time. She said it felt like her heart was "beating out of her chest." [facility] called EMS and she was transported to the ER. Per ER report other VS were normal when she arrived. Of note, the patient did have a PE about a month ago and she was started on eliquis. She was recently hospitalized with CHF and BNP of 550 and a CTA showed "decreased PE with shunting." She wears NC O2 at baseline. She states that she feels better now. She is still having the chest pain that is worse with touch. On PE she does have TTP diffusely across chest. Her HR was normal with no murmurs on exam. Non pitting edema in b/l LE. We will admit her to tele, obs. Will obtain TSH. Trend trops. Echo pending. Will monitor on tele for any arrhythmia. Continue home meds for other chronic conditions. See international freight forwarder note for full details. Dispo: admit to tele, obs Code: cardiac only PCP: STACEY Wheeler Case discussed with Dr. Garcia Addendum - Attending - Attending Attestation Date/Time: 04/09/202116 I personally evaluated the patient and discussed the management with Dr. Matthieu Izaguirre. I agree with the History, Examination, Assessment and Plan documented above with any addition or exceptions noted below. The patient was transferred for an elevated troponin after being taken to the ER from the [facility] in [place] following an episode of tachycardia that resolved on its own. Trend trops. Monitor on telemetry.
[2020-04-09 22:47] VITALS: BMI 35.9
[2020-04-09] MEDS ORDERED: Furosemide 20 MG TAB PO PRN (23:44)
[2020-04-10 01:28] LABS: Troponin I 0.068 ng/mL (< 0.028)
[2020-04-10 04:35] LABS: #Eosinphils 0.2 thou/uL (0.0-0.7); #Lymphocytes 1.7 thou/uL (1.20-3.40); #Monocytes 0.7 thou/uL (0.11-0.59); #Neutrophils 5.8 thou/uL (1.40-6.50); %Basophils 0.4 % (0.0-1.0); %Eosinophils 2.1 % (0.0-10.0); %Lymphocytes 20.7 % (21.0-51.0); %Neutrophils 68.8 % (42.0-75.0); Hemoglobin 10.8 g/dL (12.0-16.0); Mean Corpuscular HGB CONC 32.9 g/dL (32.0-36.0); Mean Corpuscular Hemoglobin 30.3 pg (27.0-31.0); Mean Platelet Volume 8.2 fL (7.4-10.4); Platelet Count 227 thou/uL (130-400); Red Blood Cell (RBC) Count 3.58 mill/uL (4.20-5.40); White Blood Cell (WBC) Count 8.4 thou/uL (4.8-10.8)
[2020-04-10 04:59] LABS: Anion Gap 13 mmol/L (10-20); BUN (Urea Nitrogen) 14 mg/dL (9.8-20.1); Calc. Creatinine Clearance 86 mL/min (70-130); Carbon Dioxide 27 mmol/L (23-31); Chloride 107 mmol/L (98-107); Glucose 107 mg/dL (83-110); Potassium 3.6 mmol/L (3.5-5.1); Sodium 143 mmol/L (136-145)
[2020-04-10] MEDS: Levothyroxine Sodium 75 MCG TAB PO SCH (05:57)
[2020-04-10 06:21] LABS: SARS-CoV-2 PCR by NAA Not Detected (NotDetected)
[2020-04-10] MEDS: Gabapentin 100 MG CAP PO SCH ×2 (08:37→21:20)
[2020-04-10] MEDS: busPIRone HCl 10 MG TAB PO SCH ×3 (08:37→21:22)
[2020-04-10] MEDS: Atorvastatin Calcium 40 MG TAB PO SCH (08:37)
[2020-04-10] MEDS: Clopidogrel Bisulfate 75 MG TAB PO SCH (08:37)
[2020-04-10] MEDS: Aspirin 81 mg Enteric Coated Tablet PO SCH (08:37)
[2020-04-10] MEDS: Apixaban 5 MG TAB PO SCH ×2 (08:37→21:20)
[2020-04-10] MEDS: Carvedilol 25 MG TAB PO SCH ×2 (08:37→17:33)
[2020-04-10] MEDS: traMADol HCl 50 MG TAB PO PRN ×2 (08:38→15:24)
[2020-04-10] MEDS: FLUoxetine HCl 20 MG CAP PO SCH (08:38)
[2020-04-10] MEDS ORDERED: FLU VACC QS2020-21(65YR UP)/PF 240 MCG/0.7 ML SYRINGE IM ONE (09:00)
--- NOTE | 2020-04-10 11:06 | PDOC.FM ---
- Subjective Subjective: Pt is feeling well, reports chest pain and sensation has resolved last night, no more heavy breathing, she has no complaints. - Objective Vital Signs & Weight: Vital Signs (12 hours) Temp Pulse Resp BP Pulse Ox 04/10/20 07:44 98.2 F 74 19 143/70 H 100 04/10/20 07:23 97.8 F 95 19 131/60 92 L 04/10/20 04:00 98.1 F 74 18 147/67 H 100 04/09/20 23:35 100 Weight Weight 92.533 kg I&O: 04/09/20 04/10/20 04/11/20 06:59 06:59 06:59 Intake Total 50 Output Total 275 Balance -225 Result Diagrams: 04/10/20 04:22 04/10/20 04:22 Phys Exam - Physical Examination Constitutional: NAD HEENT: moist MMs, sclera anicteric Neck: supple, full ROM Respiratory: no wheezing, clear to auscultation bilateral Cardiovascular: RRR, no significant murmur Gastrointestinal: soft, non-tender Musculoskeletal: no edema, pulses present Neurological: normal sensation, moves all 4 limbs Psychiatric: normal affect, A&O x 3 Skin: no rash, normal turgor Dx/Plan - Plan Plan: Indeterminate trops A- Trop 0.034, --->--> .068 P- repeat pending Tachycardia, resolved A- Reportedly up to 160 at NH. unknown etiology. TSH nml P- will watch on tele today, anticipate DC tomorrow with outpt cardiology f/u - f/u on echo, already taken - Continue home coreg HFpEF Last echo 2014 with EF 50-55%, grade 1/3 diastolic dysfunction. - No clinical signs of volume overload. Appears mildly dehydrated on exam. - BNP 106, lower than in previous admissions - Strict I&O, daily weight, monitor fluid status - Repeat echo ordered Rt Pulmonary Embolism - Dx on 02/19/2020 - no CP at this time. No increased O2 requirement (baseline 2L NC) - Continue home Eliquis 5mg BID, also on plavix and ASA COPD Baseline 2L NC - Do not suspect COPd exacerbation at this time - continue to monitor resp status and consider addition of duonebs or inhaler CKD2 - Baseline Cr about 1.00. On admission, Cr 0.81 B/l LE pain 2/2 neuropathy and gout - continue home gabapentin - assess for gout if LE pain worsens/changes Hx of borderline QTc - Monitor on tele - Caution with QT prolonging meds Normocytic anemia - Hgb 12, Hct 31, MCV 94. - Appears at baseline on chart review. May be due to CKD. Chronic problems: HTN: continue home coreg and lisinopril Hypothyroid: continue home levothyroxine GERD: continue home protonix Hx CVA w/R sided deficits: continue home ASA and plavix Anxiety/depression: continue home buspar, prozac, amytryptiline HLD: continue home fenofibrate, atorvastatin Code: DNI PCP: MIKIE PCP was previously Liam but at last DC pt was set up for [facility] skilled nursing in [place]. We are no longer their PCP therefore future admits will be city calls Addendum - Attending - Attending Attestation Date/Time: 04/10/20 2247 I personally evaluated the patient and discussed the management with Dr. Lugo. I agree with the History, Examination, Assessment and Plan documented above with any addition or exceptions noted below. The patient is stable. Trops have down-trended. She had no events on tele overnight. Will monitor for the next 24 hours to see if any additional tachycardia episodes occur.
[2020-04-10 11:19] LABS: Troponin I 0.032 ng/mL (< 0.028)
[2020-04-10] MEDS ORDERED: clonazePAM 0.5 MG TAB PO SCH (21:00)
[2020-04-10] MEDS ORDERED: Amitriptyline HCl 25 MG TAB PO SCH (21:00)
[2020-04-11] MEDS: Levothyroxine Sodium 75 MCG TAB PO SCH (05:56)
--- NOTE | 2020-04-11 07:58 | PDOC.FM ---
- Subjective Subjective: Tele monitoring while in hx: no arrythmias observed. SR 60-70's with few PACs Trops down trended to 0.032 Echo resulted with 60-65% EF, and mild LVH Pt reports no CP, palpitations, SOB or dizziness since admission. - Objective MAR Reviewed: Yes Vital Signs & Weight: Vital Signs (12 hours) Temp Pulse Resp BP Pulse Ox 04/11/20 04:00 97.8 F 65 14 124/59 L 98 04/10/20 20:00 98.6 F 77 16 143/63 H 97 Weight Weight 91.626 kg I&O: 04/10/20 04/11/20 04/12/20 06:59 06:59 06:59 Intake Total 50 1190 Output Total 275 750 Balance -225 440 Result Diagrams: 04/10/20 04:22 04/10/20 04:22 Phys Exam - Physical Examination Constitutional: NAD HEENT: moist MMs, sclera anicteric Neck: supple, full ROM Respiratory: no wheezing, no rales, no rhonchi, clear to auscultation bilateral Cardiovascular: RRR, no significant murmur Gastrointestinal: soft, non-tender, no distention, positive bowel sounds Musculoskeletal: pulses present Neurological: moves all 4 limbs Psychiatric: normal affect Skin: normal turgor, cap refill <2 seconds Dx/Plan - Plan Plan: Indeterminate trops, down trended A- Trop 0.034, ---> .068--> 0.032 P- echo: EF 60-65%, mild LVH. Tachycardia, resolved A- Reportedly up to 160 at NH. unknown etiology. TSH nml P-Tele no events per review of hx stay, anticipate DC today with outpt cardiology f/u - Echo: EF 60-65%, mild LVH. - Continue home coreg HFpEF Last echo 2014 with EF 50-55%, grade 1/3 diastolic dysfunction. - No clinical signs of volume overload. Appears mildly dehydrated on exam. - BNP 106, lower than in previous admissions - Strict I&O, daily weight, monitor fluid status - Repeat Echo: EF 60-65%, mild LVH. Rt Pulmonary Embolism - Dx on 02/19/2020 - no CP at this time. No increased O2 requirement (baseline 2L NC) - Continue home Eliquis 5mg BID, also on plavix and ASA COPD Baseline 2L NC - Do not suspect COPD exacerbation at this time - continue to monitor resp status and consider addition of duonebs or inhaler CKD2 - Baseline Cr about 1.00. On admission, Cr 0.81 B/l LE pain 2/2 neuropathy and gout - continue home gabapentin - assess for gout if LE pain worsens/changes Hx of borderline QTc - Monitor on tele - Caution with QT prolonging meds Normocytic anemia - Hgb 12, Hct 31, MCV 94. - Appears at baseline on chart review. May be due to CKD. Chronic problems: HTN: continue home coreg and lisinopril Hypothyroid: continue home levothyroxine GERD: continue home protonix Hx CVA w/R sided deficits: continue home ASA and plavix Anxiety/depression: continue home buspar, prozac, amytryptiline HLD: continue home fenofibrate, atorvastatin Code: DNI PCP: MIKIE PCP was previously Liam but at last DC pt was set up for [facility] in [place]. We are no longer their PCP therefore future admits will be city calls Dispo: plan d/c home today with outpt cardiology workup recommended Addendum - Attending - Attending Attestation Date/Time: 04/11/20 [id number] I personally evaluated the patient and discussed the management with Dr. Stearns I agree with the History, Examination, Assessment and Plan documented above with any addition or exceptions noted below - Patient denies any complaints. No further episodes of palpitations. Afebrile VSS. A/P: 1) Palpitations - no dysrhythmia seen on tele. 2) Indeterminate troponin- downtrending. Plan to d/c back to [facility] today.
[2020-04-11] MEDS: FLUoxetine HCl 20 MG CAP PO SCH (08:18)
[2020-04-11] MEDS: Aspirin 81 mg Enteric Coated Tablet PO SCH (08:18)
[2020-04-11] MEDS: Apixaban 5 MG TAB PO SCH (08:19)
[2020-04-11] MEDS: Gabapentin 100 MG CAP PO SCH (08:19)
[2020-04-11] MEDS: busPIRone HCl 10 MG TAB PO SCH ×2 (08:19→15:33)
[2020-04-11] MEDS: Atorvastatin Calcium 40 MG TAB PO SCH (08:19)
[2020-04-11] MEDS: Clopidogrel Bisulfate 75 MG TAB PO SCH (08:19)
[2020-04-11] MEDS: Carvedilol 25 MG TAB PO SCH (08:20)
--- NOTE | 2020-04-11 13:21 | DIS ---
DATE OF ADMISSION: 04/09/2020 DATE OF DISCHARGE: 04/11/2020 RESIDENT: Veronica Stearns DO ADMITTING ATTENDING: Dr. Garcia. DISCHARGE ATTENDING: Dr. Chi. CONSULTS: None. PROCEDURES: Echocardiogram on 04/10, which showed an EF of 60% to 65%, technically difficult study however and also showed mild LVH. DIAGNOSES: 1. Indeterminate troponins, which downtrended. 2. Tachycardia, resolved. 3. Heart failure, preserved ejection fraction. 4. Right pulmonary embolism, known. 5. COPD, known. 6. CKD stage 2. 7. Bilateral lower extremity pain secondary to neuropathy and gout. 8. History of borderline QTc, known. 9. Normocytic anemia. 10. Chronic problems; hypertension, hypothyroidism, GERD, history of CVA with right-sided deficits, anxiety, depression, hyperlipidemia. DISCHARGE MEDICATIONS: Home medications; 1. Elavil 25 mg p.o. at bedtime. 2. 5 mg Eliquis p.o. b.i.d. 3. 81 mg aspirin p.o. daily. 4. 40 mg atorvastatin p.o. daily. 5. 10 mg buspirone p.o. t.i.d. 6. 25 mg carvedilol p.o. b.i.d. 7. 0.5 mg clonazepam p.o. at bedtime. 8. 75 mg clopidogrel or Plavix p.o. daily. 9. Fluoxetine 60 mg p.o. daily. 10. Furosemide 20 mg p.o. daily. 11. Gabapentin 100 mg p.o. b.i.d. 12. Levothyroxine 75 mcg p.o. daily. 13. Protonix 40 mg p.o. b.i.d. 14. Tramadol 50 mg p.o. q.6 hours. No discontinued medications. HISTORY OF PRESENT ILLNESS/HOSPITAL COURSE: Ms. Lee is an 80-year-old female with a past medical history of heart failure, preserved ejection fraction, COPD, hypertension, who [facility] after having an episode of dizziness, lightheadedness, and found to have a heart rate in the 160s to 170s. She was brought into the ER and no documented heart rate above 103 was the highest. She was admitted for observation of her heart rate and possible arrhythmias overnight and through the , nothing was recorded on telemonitoring other than sinus rhythm, rate 60s to 70s with few PACs. Her initial troponin was 0.034. This uptrended to 0.064, then to 0.068, and then came down to 0.032. The patient denied any chest pain. Echocardiogram was taken and resulted in 60% to 65% EF with mild LVH and reported as a technically difficult study. The patient was on her baseline oxygen of 2 L per nasal cannula throughout her hospital stay. No further cardiology workup as inpatient was warranted as she was stable and had a normal heart rate. However, we do recommend an outpatient cardiology referral as she could have a possible arrhythmia leading to her symptoms. DISPOSITION: Stable and improved upon discharge. DISCHARGE INSTRUCTIONS: 1. Location: Home to [facility]. 2. Diet: Heart healthy. 3. Activity: As tolerated and with slow transfers. 4. Followup: Follow up with primary care as well as state attorney. Job ID: [id number]
[2020-04-11 15:33] VITALS: BP 123/76; TEMP 97.6
--- NOTE | 2020-04-12 13:00 | PQF ---
CLINICAL DOCUMENTATION CLARIFICATION FORM: Dear Dr. Veronica Stearns / Dr. Jenniffer Chi Date: 04.12.20 Please exercise your independent, professional judgment in responding to the clarification form. Clinical indicators are provided on the bottom of this form for your review. Please check appropriate box(es): history of R pulmonary embolism, not current cause of admission For continuity of documentation, please document condition throughout progress notes and discharge summary. Thank You. To be completed by CDI/Coding staff for physician review: Present Clinical Indicators - Signs / Symptoms / Labs Results and Location in Medical Record [X] Chest pain .transferred from [facility] ED after episode of palpitations, dyspnea, and L sided CP that lasted > 1hr. (1.16 H&P [facility]) [X] Tachycardia The pts HR was up to 160 at the [facility]. In the ED, highest recorded HR 97. (1.16 H&P [facility]) [X] Chart Documentation Rt Pulmonary Embolism (1.16 H&P [facility]) Present Risk Factors Results and Location in Medical Record [X] Hx DVT Rt Pulmonary Embolism DX on 02.13.20 ((1.16 H&P [facility]) [X] Chronic heart disease//HTN PMHx: HTN; COPD; renal dx; HFpEF; chronic resp failure on 2LNC at baseline. (1.16 H&P [facility]) Present Treatments Results and Location in Medical Record [X] Oxygen No increased O2 requirement (baseline 2L NC) (1.16 H&P [facility]) [X] Anticoagulants Continue home Eliquis 5mg BID. (1.16 H&P [facility]) CDS Signature: Betty Rouse RN, CCDS Phone #: [phone] Date: 04.12.20 This is a permanent part of the Medical Record [facility]
== END 2020-04-11 15:40 | DRG 309 ==
LOC: 2NO 20:26 → OBSVTOIN 04-11 12:36
PROVIDERS: ADMIT Family Medicine; ATTEND Family Medicine
DX: I49.1 Atrial premature depolarization (principal); I50.32 Chronic diastolic (congestive) heart failure; J96.10 Chronic respiratory failure, unspecified whether with hypoxia or hypercapnia; I13.0 Hypertensive heart and chronic kidney disease with heart failure and stage 1 through stage 4 chronic kidney disease, or unspecified chronic kidney disease; Z20.822 Contact with and (suspected) exposure to COVID-19; J44.9 Chronic obstructive pulmonary disease, unspecified; N18.2 Chronic kidney disease, stage 2 (mild); M10.9 Gout, unspecified; D64.9 Anemia, unspecified; E03.9 Hypothyroidism, unspecified; K21.9 Gastro-esophageal reflux disease without esophagitis; F41.9 Anxiety disorder, unspecified; F32.9 Major depressive disorder, single episode, unspecified; Z96.653 Presence of artificial knee joint, bilateral; E78.5 Hyperlipidemia, unspecified; E86.0 Dehydration; G62.9 Polyneuropathy, unspecified; R79.89 Other specified abnormal findings of blood chemistry; Z28.21 Immunization not carried out because of patient refusal; Z88.1 Allergy status to other antibiotic agents; Z88.8 Allergy status to other drugs, medicaments and biological substances; Z79.899 Other long term (current) drug therapy; Z79.02 Long term (current) use of antithrombotics/antiplatelets; Z79.890 Hormone replacement therapy; Z79.82 Long term (current) use of aspirin; Z79.01 Long term (current) use of anticoagulants; Z99.81 Dependence on supplemental oxygen; Z90.49 Acquired absence of other specified parts of digestive tract; Z90.5 Acquired absence of kidney; Z83.2 Family history of diseases of the blood and blood-forming organs and certain disorders involving the immune mechanism; I69.398 Other sequelae of cerebral infarction; Z86.711 Personal history of pulmonary embolism
CPT/HCPCS: 36415; 51798; 80048; 82553; 84443; 84484; 85025; 87635; 93306; 94760; G0378; U0003; U0005

== ENCOUNTER 2020-06-03 10:53 | Emergency (ER) | payer MEDICARE, MEDICAID ==
[2020-06-03 11:20] LABS: Bilirubin Negative (Negative); Blood, Urine Negative (Negative); Clarity Clear (Clear); Glucose, Urine (Dipstick) Normal (Negative); Ketone, Urine Negative (Negative); Leukocyte Negative Leu/uL (Negative); Nitrite Negative (Negative); Protein, Urine (Dipstick) Negative (Neg-Trace); Specific Gravity, Urine 1.006 (1.002-1.036); Urobilinogen Normal mg/dL (Less than 2)
[2020-06-03] MEDS ORDERED: Iopamidol-370 76% 500 ML 1 ML ONE (11:20)
[2020-06-03 11:57] LABS: #Eosinphils 0.2 thou/uL (0.0-0.7); #Lymphocytes 1.2 thou/uL (1.20-3.40); #Monocytes 0.5 thou/uL (0.11-0.59); #Neutrophils 6.7 thou/uL (1.40-6.50); %Basophils 0.1 % (0.0-1.0); %Eosinophils 2.3 % (0.0-10.0); %Lymphocytes 14.2 % (21.0-51.0); %Monocytes 6.2 % (0.0-10.0); %Neutrophils 77.2 % (42.0-75.0); Hemoglobin 11.3 g/dL (12.0-16.0); Mean Corpuscular HGB CONC 33.2 g/dL (32.0-36.0); Mean Corpuscular Hemoglobin 30.5 pg (27.0-31.0); Mean Corpuscular Volume 91.7 fL (78.0-98.0); Mean Platelet Volume 8.4 fL (7.4-10.4); Platelet Count 236 thou/uL (130-400); RBC Distribution Width 12.6 % (11.5-14.5); Red Blood Cell (RBC) Count 3.72 mill/uL (4.20-5.40); White Blood Cell (WBC) Count 8.7 thou/uL (4.8-10.8)
[2020-06-03] MEDS ORDERED: Morphine 4 MG/ML VIAL ONE ×2 (12:11→16:00)
[2020-06-03] MEDS ORDERED: Ondansetron PF 4 MG/2 ML Vial ONE (12:11)
[2020-06-03 12:23] LABS: ALT (SGPT) 18 U/L (8-55); AST (SGOT) 46 U/L (5-34); Albumin 4.1 g/dL (3.4-4.8); Alkaline Phosphatase 74 U/L (40-110); Anion Gap 18 mmol/L (10-20); BUN (Urea Nitrogen) 21 mg/dL (9.8-20.1); Bilirubin, Total 0.4 mg/dL (0.2-1.2); Calc. Creatinine Clearance 0 mL/min (70-130); Calcium 9.6 mg/dL (7.8-10.44); Carbon Dioxide 25 mmol/L (23-31); Chloride 101 mmol/L (98-107); Globulin 3.4 g/dL (2.4-3.5); Glucose 93 mg/dL (83-110); Lipase 23 U/L (8-78); Potassium 4.9 mmol/L (3.5-5.1); Protein, Total 7.5 g/dL (5.8-8.1); Sodium 139 mmol/L (136-145)
== END 2020-06-03 17:29 ==
LOC: ERS 10:53
DX: K95.09 Other complications of gastric band procedure (principal); R10.12 Left upper quadrant pain; E03.9 Hypothyroidism, unspecified; K21.9 Gastro-esophageal reflux disease without esophagitis; D50.9 Iron deficiency anemia, unspecified; E78.5 Hyperlipidemia, unspecified; E78.1 Pure hyperglyceridemia; I13.0 Hypertensive heart and chronic kidney disease with heart failure and stage 1 through stage 4 chronic kidney disease, or unspecified chronic kidney disease; I50.9 Heart failure, unspecified; N18.2 Chronic kidney disease, stage 2 (mild); E11.22 Type 2 diabetes mellitus with diabetic chronic kidney disease; E11.40 Type 2 diabetes mellitus with diabetic neuropathy, unspecified; J44.9 Chronic obstructive pulmonary disease, unspecified; Z86.73 Personal history of transient ischemic attack (TIA), and cerebral infarction without residual deficits; Z79.82 Long term (current) use of aspirin; Z79.899 Other long term (current) drug therapy; Z79.01 Long term (current) use of anticoagulants
CPT/HCPCS: 71045; 74177; 80053; 81003; 83690; 84484; 85025; 93005; 96374; 96375; 96376; J2270; J2405; Q9967

== ENCOUNTER 2020-07-26 11:51 | Day surgery (SDC) | payer MEDICARE, MEDICAID ==
[2020-07-25 10:12] VITALS: BMI 37.3
[2020-07-26] MEDS ORDERED: Fentanyl 100 MCG/2 ML VIAL ONE ×2 (13:43→16:06)
[2020-07-26] MEDS ORDERED: Norepinephrine 4 MG/4 ML VIAL ONE (13:43)
[2020-07-26] MEDS ORDERED: Bupivacaine 0.25% HCL 30 ML VIAL ONE (13:50)
[2020-07-26] MEDS ORDERED: Lidocaine 1% w/Epinephrine 1:100K 20 ML VIAL ONE (13:50)
[2020-07-26] MEDS ORDERED: PROPOFOL 200 MG/20 ML VIAL ONE (14:45)
[2020-07-26] MEDS ORDERED: Ondansetron PF 4 MG/2 ML Vial ONE (14:45)
[2020-07-26] MEDS ORDERED: ePHEDrine Sulfate 50 MG/10 ML VIAL ONE (14:45)
[2020-07-26] MEDS ORDERED: Dexamethasone 20 MG/5 ML VIAL ONE (14:45)
[2020-07-26] MEDS ORDERED: Rocuronium Bromide 10 MG/ML (10ML VIAL) ONE (14:45)
[2020-07-26] MEDS ORDERED: Lidocaine 1% PF 5 ML VIAL ONE (14:45)
[2020-07-26] MEDS ORDERED: Glycopyrrolate 0.2 MG/ML 5 ML SYRINGE ONE (14:45)
[2020-07-26] MEDS ORDERED: Ondansetron HCl/PF 4 MG/2 ML Vial IVP PRN (15:44)
[2020-07-26] MEDS ORDERED: Promethazine HCl 25 MG/ML VIAL SLOW IVP PRN (15:44)
[2020-07-26] MEDS ORDERED: Promethazine HCl 25 MG/ML VIAL IM PRN (15:44)
== END 2020-07-26 17:46 | disposition home or self-care (01) ==
LOC: SDC 11:51
PROVIDERS: ATTEND Surgery
PROC: 0DP64CZ Removal of Extraluminal Device from Stomach, Percutaneous Endoscopic Approach (ICD-10-PCS; principal; 2020-07-26)
DX: T85.518A Breakdown (mechanical) of other gastrointestinal prosthetic devices, implants and grafts, initial encounter (principal); T85.848A Pain due to other internal prosthetic devices, implants and grafts, initial encounter; G89.29 Other chronic pain; R10.12 Left upper quadrant pain; I10 Essential (primary) hypertension; M19.90 Unspecified osteoarthritis, unspecified site; E78.5 Hyperlipidemia, unspecified; Z86.73 Personal history of transient ischemic attack (TIA), and cerebral infarction without residual deficits; Z79.01 Long term (current) use of anticoagulants; Z79.02 Long term (current) use of antithrombotics/antiplatelets; Z79.82 Long term (current) use of aspirin; Z79.899 Other long term (current) drug therapy; Z88.0 Allergy status to penicillin; Z88.2 Allergy status to sulfonamides
CPT/HCPCS: J0690; J1100; J2405; J2704; J3010; S0020

== ENCOUNTER 2020-10-21 16:59 | Emergency (ER) | payer MEDICARE, MEDICAID ==
[2020-10-21 18:07] LABS: #Eosinphils 0.2 thou/uL (0.0-0.7); #Lymphocytes 1.5 thou/uL (1.20-3.40); #Monocytes 0.7 thou/uL (0.11-0.59); #Neutrophils 7.9 thou/uL (1.40-6.50); %Basophils 0.2 % (0.0-1.0); %Eosinophils 1.9 % (0.0-10.0); %Lymphocytes 14.3 % (21.0-51.0); %Monocytes 7.2 % (0.0-10.0); %Neutrophils 76.4 % (42.0-75.0); Hemoglobin 11.8 g/dL (12.0-16.0); Mean Corpuscular HGB CONC 33.7 g/dL (32.0-36.0); Mean Corpuscular Hemoglobin 31.3 pg (27.0-31.0); Mean Corpuscular Volume 93.1 fL (78.0-98.0); Mean Platelet Volume 8.7 fL (7.4-10.4); Platelet Count 216 thou/uL (130-400); RBC Distribution Width 11.9 % (11.5-14.5); Red Blood Cell (RBC) Count 3.75 mill/uL (4.20-5.40); White Blood Cell (WBC) Count 10.3 thou/uL (4.8-10.8)
[2020-10-21] MEDS ORDERED: Morphine 2 MG/ML VIAL ONE (18:10)
[2020-10-21 18:32] LABS: ALT (SGPT) 8 U/L (8-55); AST (SGOT) 19 U/L (5-34); Albumin 4.2 g/dL (3.4-4.8); Alkaline Phosphatase 85 U/L (40-110); Anion Gap 14 mmol/L (10-20); BUN (Urea Nitrogen) 22 mg/dL (9.8-20.1); Bilirubin, Total 0.3 mg/dL (0.2-1.2); Calc. Creatinine Clearance 0 mL/min (70-130); Calcium 9.2 mg/dL (7.8-10.44); Carbon Dioxide 27 mmol/L (23-31); Chloride 103 mmol/L (98-107); Globulin 2.6 g/dL (2.4-3.5); Glucose 106 mg/dL (83-110); Protein, Total 6.8 g/dL (5.8-8.1); Sodium 140 mmol/L (136-145)
[2020-10-21] MEDS ORDERED: Ondansetron PF 4 MG/2 ML Vial ONE (18:43)
[2020-10-21 19:06] LABS: Bacteria/HPF 1+ HPF (None Seen); Bilirubin Negative (Negative); Blood, Urine Negative (Negative); Clarity Clear (Clear); Glucose, Urine (Dipstick) Normal (Negative); Ketone, Urine Negative (Negative); Leukocyte 250 Leu/uL (Negative); Nitrite Negative (Negative); Protein, Urine (Dipstick) Negative (Neg-Trace); RBC/HPF 0-3 HPF (0-3); Specific Gravity, Urine 1.016 (1.002-1.036); Squamous Epithelial 0-3 HPF (0-3); Urobilinogen Normal mg/dL (Less than 2); pH, Urine 5.5 (5.0-9.0)
[2020-10-21] MEDS ORDERED: cefTRIAXone\\ROCEPHIN 1 GM VIAL ONE (19:18)
== END 2020-10-21 20:43 ==
LOC: ERS 16:59
DX: N10 Acute pyelonephritis (principal); E03.9 Hypothyroidism, unspecified; K21.9 Gastro-esophageal reflux disease without esophagitis; E78.5 Hyperlipidemia, unspecified; I13.0 Hypertensive heart and chronic kidney disease with heart failure and stage 1 through stage 4 chronic kidney disease, or unspecified chronic kidney disease; N18.2 Chronic kidney disease, stage 2 (mild); I50.9 Heart failure, unspecified; Z79.899 Other long term (current) drug therapy
CPT/HCPCS: 71045; 74176; 80053; 83880; 84484; 85025; 87086; 93005; 96365; 96375; 99284; J2270; 36415; 81003; 81015; J0696; J2405

== ENCOUNTER 2021-05-12 21:22 | Inpatient (IN) | payer MEDICARE, MEDICAID ==
[2021-05-12] MEDS ORDERED: Aspirin Chewable 81 MG TAB ONE (22:02)
[2021-05-12] MEDS ORDERED: Nitroglycerin 2% Ointment 1 INCH/1 GM Packet ONE (22:02)
[2021-05-12 22:03] LABS: #Eosinphils 0.1 thou/uL (0.0-0.7); #Lymphocytes 1.2 thou/uL (1.20-3.40); #Monocytes 0.7 thou/uL (0.11-0.59); #Neutrophils 9.3 thou/uL (1.40-6.50); %Basophils 0.3 % (0.0-1.0); %Lymphocytes 10.9 % (21.0-51.0); %Neutrophils 81.9 % (42.0-75.0); Hemoglobin 12.9 g/dL (12.0-16.0); Mean Corpuscular HGB CONC 32.9 g/dL (32.0-36.0); Mean Corpuscular Volume 94.1 fL (78.0-98.0); Mean Platelet Volume 9.2 fL (7.4-10.4); Platelet Count 206 thou/uL (130-400); RBC Distribution Width 11.6 % (11.5-14.5); Red Blood Cell (RBC) Count 4.17 mill/uL (4.20-5.40); White Blood Cell (WBC) Count 11.4 thou/uL (4.8-10.8)
[2021-05-12 22:28] LABS: ALT (SGPT) 8 U/L (8-55); AST (SGOT) 14 U/L (5-34); Albumin 4.2 g/dL (3.4-4.8); Alkaline Phosphatase 88 U/L (40-110); Anion Gap 17 mmol/L (10-20); BUN (Urea Nitrogen) 29 mg/dL (9.8-20.1); Bilirubin, Total 0.3 mg/dL (0.2-1.2); Calc. Creatinine Clearance 0 mL/min (70-130); Calcium 9.6 mg/dL (7.8-10.44); Carbon Dioxide 26 mmol/L (23-31); Chloride 101 mmol/L (98-107); Glucose 170 mg/dL (83-110); Lipase 24 U/L (8-78); Potassium 3.4 mmol/L (3.5-5.1); Protein, Total 7.2 g/dL (5.8-8.1); Sodium 141 mmol/L (136-145)
[2021-05-13] MEDS ORDERED: Acetaminophen 325 MG TAB PO PRN (00:44)
[2021-05-13] MEDS ORDERED: Acetaminophen 650 MG Suppository PR PRN (00:44)
[2021-05-13] MEDS ORDERED: Ondansetron ODT 4 MG TAB PO PRN (01:53)
[2021-05-13 02:02] LABS: Magnesium 1.8 mg/dL (1.6-2.6); Phosphorus 3.8 mg/dL (2.3-4.7)
[2021-05-13] MEDS ORDERED: Furosemide 20 MG TAB PO PRN (02:03)
[2021-05-13 02:05] LABS: Troponin I 0.045 ng/mL (< 0.028)
[2021-05-13] MEDS: Acetaminophen/Codeine 30-300mg Tablet PO PRN ×3 (03:05→21:16)
[2021-05-13 03:49] VITALS: BMI 36.1
[2021-05-13 04:34] LABS: #Eosinphils 0.1 thou/uL (0.0-0.7); #Lymphocytes 1.3 thou/uL (1.20-3.40); #Monocytes 0.9 thou/uL (0.11-0.59); #Neutrophils 8.2 thou/uL (1.40-6.50); %Basophils 0.4 % (0.0-1.0); %Eosinophils 0.9 % (0.0-10.0); %Lymphocytes 12.2 % (21.0-51.0); %Monocytes 8.7 % (0.0-10.0); %Neutrophils 77.8 % (42.0-75.0); Hemoglobin 12.3 g/dL (12.0-16.0); Mean Corpuscular Hemoglobin 31.3 pg (27.0-31.0); Mean Corpuscular Volume 97.8 fL (78.0-98.0); Mean Platelet Volume 9.3 fL (7.4-10.4); Platelet Count 187 thou/uL (130-400); RBC Distribution Width 11.8 % (11.5-14.5); Red Blood Cell (RBC) Count 3.92 mill/uL (4.20-5.40); White Blood Cell (WBC) Count 10.5 thou/uL (4.8-10.8)
[2021-05-13 04:36] LABS: Hemoglobin A1c 5.1 % (4.0-6.0)
[2021-05-13 04:51] LABS: ALT (SGPT) 7 U/L (8-55); AST (SGOT) 12 U/L (5-34); Albumin 3.8 g/dL (3.4-4.8); Alkaline Phosphatase 73 U/L (40-110); Anion Gap 17 mmol/L (10-20); BUN (Urea Nitrogen) 33 mg/dL (9.8-20.1); Bilirubin, Total 0.3 mg/dL (0.2-1.2); Calc. Creatinine Clearance 61 mL/min (70-130); Calcium 9.3 mg/dL (7.8-10.44); Carbon Dioxide 25 mmol/L (23-31); Chloride 103 mmol/L (98-107); Globulin 2.6 g/dL (2.4-3.5); Glucose 122 mg/dL (83-110); Potassium 3.7 mmol/L (3.5-5.1); Protein, Total 6.4 g/dL (5.8-8.1); Sodium 141 mmol/L (136-145)
[2021-05-13 04:55] LABS: Troponin I 0.038 ng/mL (< 0.028)
[2021-05-13] MEDS: Levothyroxine Sodium 75 MCG TAB PO SCH (05:19)
[2021-05-13] MEDS ORDERED: Carvedilol 25 MG TAB PO SCH (09:00)
[2021-05-13] MEDS ORDERED: Aspirin 81 mg Enteric Coated Tablet PO SCH (09:00)
[2021-05-13] MEDS ORDERED: Apixaban 5 MG TAB PO SCH (09:00)
[2021-05-13] MEDS ORDERED: Iopamidol 370 76% 100 ML VIAL ONE (09:47)
[2021-05-13] MEDS: Nystatin Powder 15 GM BOT TOP SCH ×2 (10:43→21:18)
[2021-05-13] MEDS: Polyethylene Glycol OPTH DROP 15 ML BOT EA EYE SCH ×4 (10:43→21:18)
[2021-05-13] MEDS: Fluticasone Propionate Nasal Spray 16 gm Bottle NASAL SCH ×2 (10:44→21:17)
[2021-05-13] MEDS: Stress 600 With Zinc 1 TAB PO SCH (10:45)
[2021-05-13] MEDS: Senokot 8.6 MG TAB PO SCH ×2 (10:45→21:16)
[2021-05-13] MEDS: busPIRone HCl 10 MG TAB PO SCH ×3 (10:45→21:16)
[2021-05-13] MEDS: Gabapentin 300 MG CAP PO SCH ×2 (10:45→21:15)
[2021-05-13] MEDS: FLUoxetine HCl 20 MG CAP PO SCH (10:46)
[2021-05-13] MEDS: Cholecalciferol 1,000 UNITS (25 MCG) TAB PO SCH (10:46)
[2021-05-13] MEDS: Clopidogrel Bisulfate 75 MG TAB PO SCH (10:47)
[2021-05-13] MEDS: Methyl Salicylate/Menthol 85 GM TUBE TOP SCH ×4 (10:48→21:17)
[2021-05-13] MEDS: Milk Of Magnesia 30 ML UDCUP PO SCH (10:48)
[2021-05-13] MEDS: Polyethylene Glycol 3350 17 GM Packet PO SCH (10:59)
[2021-05-13] MEDS ORDERED: traMADol HCl 50 MG TAB PO PRN (12:19)
[2021-05-13] MEDS ORDERED: diphenhydrAMINE 50 MG/ML VIAL IVP SCH (13:30)
[2021-05-13] MEDS ORDERED: Lactated Ringer's 500 ML IV SCH (13:30)
[2021-05-13] MEDS ORDERED: traMADol HCl 50 MG TAB PO SCH (18:00)
[2021-05-13 19:01] LABS: SARS-CoV-2 PCR by NAA Not Detected (NotDetected)
[2021-05-13] MEDS: Apixaban 5 MG TAB PO SCH (21:15)
[2021-05-13] MEDS: Melatonin 3 MG TAB PO SCH (21:15)
[2021-05-13] MEDS: Fenofibrate Nanocrystallized 145 MG TAB PO SCH (21:15)
[2021-05-13] MEDS: Atorvastatin Calcium 40 MG TAB PO SCH (21:16)
[2021-05-13] MEDS: clonazePAM 0.5 MG TAB PO SCH (21:16)
[2021-05-14] MEDS: Levothyroxine Sodium 75 MCG TAB PO SCH (05:49)
[2021-05-14] MEDS: Acetaminophen/Codeine 30-300mg Tablet PO PRN ×3 (05:50→21:35)
[2021-05-14] MEDS: FLUoxetine HCl 20 MG CAP PO SCH (09:20)
[2021-05-14] MEDS: Clopidogrel Bisulfate 75 MG TAB PO SCH (09:20)
[2021-05-14] MEDS: Apixaban 5 MG TAB PO SCH ×2 (09:20→21:33)
[2021-05-14] MEDS: busPIRone HCl 10 MG TAB PO SCH ×3 (09:20→21:33)
[2021-05-14] MEDS: Cholecalciferol 1,000 UNITS (25 MCG) TAB PO SCH (09:20)
[2021-05-14] MEDS: Gabapentin 300 MG CAP PO SCH ×2 (09:21→21:34)
[2021-05-14] MEDS: Stress 600 With Zinc 1 TAB PO SCH (09:23)
[2021-05-14] MEDS: Polyethylene Glycol 3350 17 GM Packet PO SCH (09:23)
[2021-05-14] MEDS: Methyl Salicylate/Menthol 85 GM TUBE TOP SCH ×3 (09:23→21:38)
[2021-05-14] MEDS: Polyethylene Glycol OPTH DROP 15 ML BOT EA EYE SCH ×4 (09:23→21:37)
[2021-05-14] MEDS: Nystatin Powder 15 GM BOT TOP SCH ×2 (09:24→21:37)
[2021-05-14] MEDS: Fluticasone Propionate Nasal Spray 16 gm Bottle NASAL SCH ×2 (09:24→21:36)
[2021-05-14] MEDS: Milk Of Magnesia 30 ML UDCUP PO SCH (09:25)
[2021-05-14] MEDS: Senokot 8.6 MG TAB PO SCH ×2 (09:26→21:34)
[2021-05-14] MEDS: clonazePAM 0.5 MG TAB PO SCH (21:32)
[2021-05-14] MEDS: Atorvastatin Calcium 40 MG TAB PO SCH (21:33)
[2021-05-14] MEDS: Fenofibrate Nanocrystallized 145 MG TAB PO SCH (21:34)
[2021-05-14] MEDS: Melatonin 3 MG TAB PO SCH (21:34)
[2021-05-15] MEDS: Levothyroxine Sodium 75 MCG TAB PO SCH (05:40)
[2021-05-15] MEDS: Acetaminophen/Codeine 30-300mg Tablet PO PRN ×2 (07:43→15:13)
[2021-05-15] MEDS ORDERED: Lisinopril 10 MG TAB PO SCH (09:00)
[2021-05-15] MEDS: Polyethylene Glycol OPTH DROP 15 ML BOT EA EYE SCH ×3 (09:32→17:21)
[2021-05-15] MEDS: Fluticasone Propionate Nasal Spray 16 gm Bottle NASAL SCH (09:32)
[2021-05-15] MEDS: Nystatin Powder 15 GM BOT TOP SCH (09:33)
[2021-05-15] MEDS: Methyl Salicylate/Menthol 85 GM TUBE TOP SCH ×2 (09:33→15:13)
[2021-05-15] MEDS: Stress 600 With Zinc 1 TAB PO SCH (09:34)
[2021-05-15] MEDS: Gabapentin 300 MG CAP PO SCH (09:35)
[2021-05-15] MEDS: FLUoxetine HCl 20 MG CAP PO SCH (09:35)
[2021-05-15] MEDS: Cholecalciferol 1,000 UNITS (25 MCG) TAB PO SCH (09:35)
[2021-05-15] MEDS: busPIRone HCl 10 MG TAB PO SCH ×2 (09:36→15:13)
[2021-05-15] MEDS: Apixaban 5 MG TAB PO SCH (09:36)
[2021-05-15] MEDS: Clopidogrel Bisulfate 75 MG TAB PO SCH (09:37)
[2021-05-15] MEDS: Senokot 8.6 MG TAB PO SCH (09:37)
[2021-05-15] MEDS: Milk Of Magnesia 30 ML UDCUP PO SCH (09:38)
[2021-05-15] MEDS: Polyethylene Glycol 3350 17 GM Packet PO SCH (09:39)
[2021-05-15 15:44] VITALS: BP 133/58; TEMP 98.1
[2021-05-15] MEDS ORDERED: clonazePAM 0.5 MG TAB PO SCH (21:00)
[2021-05-16] MEDS ORDERED: FLU VACC QS2021-22(65YR UP)/PF 240 MCG/0.7 ML SYRINGE IM ONE (09:00)
== END 2021-05-15 18:15 | DRG 309 ==
LOC: ERS 21:22 → 2NO 05-13 00:15 → OBSVTOIN 05-15 13:46
PROVIDERS: ADMIT Family Medicine; ATTEND Family Medicine
DX: I47.1 Supraventricular tachycardia (principal); N17.9 Acute kidney failure, unspecified; J96.11 Chronic respiratory failure with hypoxia; Z20.822 Contact with and (suspected) exposure to COVID-19; M19.90 Unspecified osteoarthritis, unspecified site; J44.9 Chronic obstructive pulmonary disease, unspecified; K21.9 Gastro-esophageal reflux disease without esophagitis; E78.5 Hyperlipidemia, unspecified; M10.9 Gout, unspecified; F41.9 Anxiety disorder, unspecified; E03.9 Hypothyroidism, unspecified; G89.29 Other chronic pain; K59.00 Constipation, unspecified; G44.009 Cluster headache syndrome, unspecified, not intractable; N18.31 Chronic kidney disease, stage 3a; F41.0 Panic disorder [episodic paroxysmal anxiety]; Z88.1 Allergy status to other antibiotic agents; Z88.2 Allergy status to sulfonamides; Z88.8 Allergy status to other drugs, medicaments and biological substances; Z79.899 Other long term (current) drug therapy; Z79.02 Long term (current) use of antithrombotics/antiplatelets; Z79.890 Hormone replacement therapy; Z79.82 Long term (current) use of aspirin; Z86.711 Personal history of pulmonary embolism; Z86.73 Personal history of transient ischemic attack (TIA), and cerebral infarction without residual deficits; Z98.890 Other specified postprocedural states; Z90.49 Acquired absence of other specified parts of digestive tract; Z99.81 Dependence on supplemental oxygen
CPT/HCPCS: 36415; 70450; 71275; 80053; 83036; 83690; 83735; 84100; 84443; 84484; 85025; 93005; J1200; J7120; Q9967; U0003; U0005

== ENCOUNTER 2021-07-19 08:55 | Observation (INO) | payer MEDICARE, MEDICAID ==
[2021-07-17 13:16] VITALS: BMI 38.9
[2021-07-19] MEDS ORDERED: Heparin 10,000 UNITS/ 10 ML VIAL ONE (11:08)
[2021-07-19] MEDS ORDERED: Isoproterenol 0.2 MG/1 ML AMP ONE (11:09)
[2021-07-19] MEDS ORDERED: Midazolam HCl 2 mg/2 ml Vial ONE (13:42)
[2021-07-19] MEDS ORDERED: Ondansetron PF 4 MG/2 ML Vial ONE (14:16)
[2021-07-19] MEDS ORDERED: PROPOFOL 200 MG/20 ML VIAL ONE (14:16)
[2021-07-19] MEDS ORDERED: Propofol 500 MG/50 ML VIAL ONE ×2 (14:21→15:28)
[2021-07-19] MEDS ORDERED: Lidocaine 2% Jelly 5 ML TUBE ONE (14:24)
[2021-07-19] MEDS ORDERED: Acetaminophen 325 MG TAB PO PRN (15:30)
[2021-07-19] MEDS ORDERED: traMADol HCl 50 MG TAB PO PRN (16:32)
[2021-07-19] MEDS ORDERED: Promethazine HCl 25 MG/ML VIAL IM PRN (16:40)
[2021-07-19] MEDS ORDERED: Promethazine HCl 25 MG/ML VIAL IVPB PRN (16:40)
[2021-07-19] MEDS ORDERED: Ondansetron HCl/PF 4 MG/2 ML Vial IVP PRN (16:40)
[2021-07-19] MEDS ORDERED: Fentanyl 100 MCG/2 ML VIAL ONE (16:45)
[2021-07-19] MEDS ORDERED: Fluticasone Propionate Nasal Spray 16 gm Bottle NASAL PRN (17:54)
[2021-07-19] MEDS: busPIRone HCl 10 MG TAB PO SCH (20:33)
[2021-07-19] MEDS: Gabapentin 300 MG CAP PO SCH (20:34)
[2021-07-19] MEDS: Senokot 8.6 MG TAB PO SCH (20:35)
[2021-07-19] MEDS: HYDROcodone/Acetaminophen 5/325 mg Tablet PO PRN (20:35)
[2021-07-19] MEDS ORDERED: clonazePAM 0.5 MG TAB PO SCH (21:00)
[2021-07-19] MEDS ORDERED: Atorvastatin Calcium 40 MG TAB PO SCH (21:00)
[2021-07-19] MEDS ORDERED: Melatonin 3 MG TAB PO SCH (21:00)
[2021-07-20] MEDS: HYDROcodone/Acetaminophen 5/325 mg Tablet PO PRN ×3 (00:42→12:02)
[2021-07-20 04:34] LABS: #Eosinphils 0.2 thou/uL (0.0-0.7); #Lymphocytes 1.4 thou/uL (1.20-3.40); #Monocytes 0.6 thou/uL (0.11-0.59); #Neutrophils 5.4 thou/uL (1.40-6.50); %Basophils 0.4 % (0.0-1.0); %Lymphocytes 18.5 % (21.0-51.0); Hemoglobin 11.3 g/dL (12.0-16.0); Mean Corpuscular HGB CONC 33.7 g/dL (32.0-36.0); Mean Corpuscular Hemoglobin 32.5 pg (27.0-31.0); Mean Corpuscular Volume 96.5 fL (78.0-98.0); Mean Platelet Volume 9.3 fL (7.4-10.4); Platelet Count 185 thou/uL (130-400); RBC Distribution Width 11.6 % (11.5-14.5); Red Blood Cell (RBC) Count 3.48 mill/uL (4.20-5.40); White Blood Cell (WBC) Count 7.6 thou/uL (4.8-10.8)
[2021-07-20 04:50] LABS: Anion Gap 12 mmol/L (10-20); BUN (Urea Nitrogen) 27 mg/dL (9.8-20.1); Calc. Creatinine Clearance 87 mL/min (70-130); Calcium 9.2 mg/dL (7.8-10.44); Carbon Dioxide 28 mmol/L (23-31); Chloride 105 mmol/L (98-107); Glucose 98 mg/dL (83-110); Potassium 4.3 mmol/L (3.5-5.1); Sodium 141 mmol/L (136-145)
[2021-07-20] MEDS ORDERED: Levothyroxine Sodium 75 MCG TAB PO SCH (06:00)
[2021-07-20] MEDS ORDERED: Carvedilol 3.125 MG TAB PO SCH (09:00)
[2021-07-20] MEDS ORDERED: Polyethylene Glycol 3350 17 GM Packet PO SCH (09:00)
[2021-07-20] MEDS ORDERED: Stress 600 With Zinc 1 TAB PO SCH (09:00)
[2021-07-20] MEDS ORDERED: Clopidogrel Bisulfate 75 MG TAB PO SCH (09:00)
[2021-07-20] MEDS ORDERED: FLUoxetine HCl 20 MG CAP PO SCH (09:00)
[2021-07-20] MEDS ORDERED: Apixaban 5 MG TAB PO SCH (09:00)
[2021-07-20] MEDS ORDERED: Aspirin 81 mg Enteric Coated Tablet PO SCH (09:00)
[2021-07-20] MEDS ORDERED: Cholecalciferol 1,000 UNITS (25 MCG) TAB PO SCH (09:00)
[2021-07-20] MEDS ORDERED: Furosemide 20 MG TAB PO SCH (09:00)
[2021-07-20] MEDS: Senokot 8.6 MG TAB PO SCH (10:02)
[2021-07-20] MEDS: Gabapentin 300 MG CAP PO SCH (10:02)
[2021-07-20] MEDS: busPIRone HCl 10 MG TAB PO SCH (10:03)
[2021-07-20 13:05] VITALS: BP 152/68; TEMP 97.8
== END 2021-07-20 14:30 | disposition home or self-care (01) ==
LOC: SDC 08:55 → 2NO 15:39
PROVIDERS: ADMIT Internal Medicine Cardiovascular Disease; ATTEND Internal Medicine Cardiovascular Disease
PROC: 02583ZZ Destruction of Conduction Mechanism, Percutaneous Approach (ICD-10-PCS; principal; 2021-07-19)
PROC: 02K83ZZ Map Conduction Mechanism, Percutaneous Approach (ICD-10-PCS; 2021-07-19)
PROC: 4A023FZ Measurement of Cardiac Rhythm, Percutaneous Approach (ICD-10-PCS; 2021-07-19)
PROC: 4A0234Z Measurement of Cardiac Electrical Activity, Percutaneous Approach (ICD-10-PCS; 2021-07-19)
DX: I47.1 Supraventricular tachycardia (principal); I44.1 Atrioventricular block, second degree; I48.4 Atypical atrial flutter; I48.91 Unspecified atrial fibrillation; Z86.711 Personal history of pulmonary embolism; Z86.73 Personal history of transient ischemic attack (TIA), and cerebral infarction without residual deficits; Z79.01 Long term (current) use of anticoagulants; Z79.82 Long term (current) use of aspirin; Z79.890 Hormone replacement therapy; Z79.899 Other long term (current) drug therapy; Z88.0 Allergy status to penicillin; Z88.2 Allergy status to sulfonamides
CPT/HCPCS: 80048; 85025; 93005; 93613; 93623; 93653; 93655; C1726; C1760; G0378 ×2; 36415; 93010; J1644; J2250; J2405; J2704; J3010

== ENCOUNTER 2022-02-21 16:48 | Inpatient (IN) | payer MEDICARE, MEDICAID ==
[2022-02-21 18:26] LABS: #Eosinphils 0.1 thou/uL (0.0-0.7); #Lymphocytes 0.8 thou/uL (1.20-3.40); #Monocytes 0.9 thou/uL (0.11-0.59); #Neutrophils 14.8 thou/uL (1.40-6.50); %Eosinophils 0.4 % (0.0-10.0); %Lymphocytes 4.7 % (21.0-51.0); %Monocytes 5.4 % (0.0-10.0); %Neutrophils 89.5 % (42.0-75.0); Hemoglobin 11.7 g/dL (12.0-16.0); Mean Corpuscular HGB CONC 32.7 g/dL (32.0-36.0); Mean Corpuscular Hemoglobin 30.6 pg (27.0-31.0); Mean Corpuscular Volume 93.6 fl (78.0-98.0); Mean Platelet Volume 10.1 fL (7.4-10.4); Platelet Count 236 10x3/uL (130-400); RBC Distribution Width 11.7 % (11.5-14.5); Red Blood Cell (RBC) Count 3.83 mill/uL (4.20-5.40); White Blood Cell (WBC) Count 16.5 10x3/uL (4.8-10.8)
[2022-02-21 19:14] LABS: Anion Gap 22 mmol/L (10-20); BUN (Urea Nitrogen) 89 mg/dL (9.8-20.1); Calc. Creatinine Clearance 0 mL/min (70-130); Carbon Dioxide 28 mmol/L (23-31); Chloride 92 mmol/L (98-107); Estimated GFR 12; Potassium 4.1 mmol/L (3.5-5.1); Sodium 138 mmol/L (136-145)
[2022-02-21 19:15] LABS: ALT (SGPT) 11 U/L (8-55); AST (SGOT) 19 U/L (5-34); Albumin 3.9 g/dL (3.4-4.8); Alkaline Phosphatase 66 U/L (40-110); Bilirubin, Total 0.6 mg/dL (0.2-1.2); CK (CPK) 29 U/L (29-168); Globulin 2.8 g/dL (2.4-3.5); Glucose 180 mg/dL (83-110); Lipase 46 U/L (8-78); Protein, Total 6.7 g/dL (5.8-8.1)
[2022-02-21] MEDS ORDERED: Ondansetron PF 4 MG/2 ML Vial ONE (19:46)
[2022-02-21] MEDS ORDERED: Acetaminophen 325 MG TAB PO PRN (22:20)
[2022-02-21] MEDS ORDERED: Fluticasone Propionate Nasal Spray 16 gm Bottle NASAL PRN (22:23)
[2022-02-21 23:04] LABS: Lactic Acid 1.4 mmol/L (0.5-2.2)
[2022-02-21] MEDS ORDERED: Dextrose 5 %-0.45 % NaCl 1,000 ML IV SCH (23:30)
[2022-02-22] MEDS: Sodium Chloride 0.9% 250 ML IV SCH ×4 (00:17→02:08)
[2022-02-22] MEDS: Levothyroxine Sodium 75 MCG TAB PO SCH (05:38)
[2022-02-22 06:47] LABS: Hemoglobin 12.3 g/dL (12.0-16.0); Mean Corpuscular HGB CONC 33.4 g/dL (32.0-36.0); Mean Corpuscular Hemoglobin 31.2 pg (27.0-31.0); Mean Corpuscular Volume 93.6 fl (78.0-98.0); Mean Platelet Volume 11.7 fL (7.4-10.4); Platelet Count 152 10x3/uL (130-400); Red Blood Cell (RBC) Count 3.93 mill/uL (4.20-5.40); White Blood Cell (WBC) Count 14.4 10x3/uL (4.8-10.8)
[2022-02-22] MEDS: busPIRone HCl 10 MG TAB PO SCH ×3 (07:23→20:04)
[2022-02-22] MEDS: Carvedilol 3.125 MG TAB PO SCH (07:23)
[2022-02-22] MEDS: Clopidogrel Bisulfate 75 MG TAB PO SCH (07:24)
[2022-02-22] MEDS: Heparin 5,000 UNITS/ML VIAL SC SCH ×3 (08:09→20:04)
[2022-02-22 08:41] LABS: Bacteria/HPF 4+ HPF (None Seen); Bilirubin Negative (Negative); Blood, Urine 1+ (Negative); CAUTI Indications for Culture Alt mental st,lethar; Clarity Extra Turbid (Clear); Glucose, Urine (Dipstick) Normal (Negative); Ketone, Urine Trace mg/dL (Negative); Leukocyte 500 Leu/uL (Negative); Nitrite Negative (Negative); Protein, Urine (Dipstick) 30 mg/dL (Neg-Trace); RBC/HPF 21-50 HPF (0-3); Specific Gravity, Urine 1.023 (1.002-1.036); Urobilinogen Normal mg/dL (Less than 2); WBC/HPF Greater than 50 HPF (0-3)
[2022-02-22 08:42] LABS: Urine Culture Reflex Yes Yes
[2022-02-22] MEDS ORDERED: Aspirin 81 mg Enteric Coated Tablet PO SCH (09:00)
[2022-02-22] MEDS ORDERED: Famotidine 20 MG TAB PO SCH (09:00)
[2022-02-22] MEDS: Dextrose 5 %-0.45 % NaCl 1,000 ML IV SCH ×3 (09:51→20:05)
[2022-02-22 11:50] LABS: Eosinophils 1 % (0-10); Lymphocytes 13 % (21-51); MDiff Complete? YES; Monocytes 10 % (0-10); Neutrophil 74 % (42-75); Platelet Morphology Comment Appears Adequate; RBC Morphology Normal; Reactive Lymphocytes 2 % (0-10)
[2022-02-22 14:52] LABS: Chloride 94 mmol/L (98-107); Potassium 4.2 mmol/L (3.5-5.1); Sodium 135 mmol/L (136-145)
[2022-02-22 14:53] LABS: Calcium 8.7 mg/dL (7.8-10.44); Glucose 151 mg/dL (83-110)
[2022-02-22 14:55] LABS: Anion Gap 20 mmol/L (10-20); Carbon Dioxide 25 mmol/L (23-31)
[2022-02-22 14:57] LABS: BUN (Urea Nitrogen) 92 mg/dL (9.8-20.1); Calc. Creatinine Clearance 22 mL/min (70-130); Estimated GFR 15
[2022-02-22] MEDS: clonazePAM 0.5 MG TAB PO SCH (20:04)
[2022-02-22] MEDS ORDERED: Fenofibrate Nanocrystallized 145 MG TAB PO SCH (21:00)
[2022-02-22] MEDS ORDERED: Atorvastatin Calcium 40 MG TAB PO SCH (21:00)
[2022-02-23] MEDS: Levothyroxine Sodium 75 MCG TAB PO SCH (05:23)
[2022-02-23] MEDS ORDERED: MD-Gastroview 120 ML BOT ONE (10:34)
[2022-02-23] MEDS: Ondansetron ODT 4 MG TAB PO PRN (10:58)
[2022-02-23] MEDS: cefTRIAXone\\ROCEPHIN 1 GM in Sodium Chloride 0.9% 100 ML IVPB SCH (10:58)
[2022-02-23] MEDS: Clopidogrel Bisulfate 75 MG TAB PO SCH (10:59)
[2022-02-23] MEDS: busPIRone HCl 10 MG TAB PO SCH ×3 (10:59→22:54)
[2022-02-23] MEDS: Dextrose 5 %-0.45 % NaCl 1,000 ML IV SCH (10:59)
[2022-02-23] MEDS: Heparin 5,000 UNITS/ML VIAL SC SCH ×2 (10:59→14:47)
[2022-02-23] MEDS: Carvedilol 3.125 MG TAB PO SCH (10:59)
[2022-02-23 14:21] LABS: Anion Gap 19 mmol/L (10-20); BUN (Urea Nitrogen) 94 mg/dL (9.8-20.1); Calc. Creatinine Clearance 31 mL/min (70-130); Carbon Dioxide 29 mmol/L (23-31); Chloride 97 mmol/L (98-107); Estimated GFR 21; Glucose 183 mg/dL (83-110); Potassium 3.9 mmol/L (3.5-5.1); Sodium 141 mmol/L (136-145)
[2022-02-23] MEDS ORDERED: Bupivacaine HCl 0.5%/Epinephrine 1:200,000/PF 30 ml Vial ONE (15:29)
[2022-02-23] MEDS ORDERED: Norepinephrine 4 MG/4 ML VIAL ONE (15:34)
[2022-02-23] MEDS ORDERED: fentaNYL PF 100 MCG/2 ML SYRINGE ONE (15:34)
[2022-02-23] MEDS ORDERED: Propofol 1,000 MG/100 ML VIAL IV ONE (15:34)
[2022-02-23] MEDS ORDERED: SUGAMMADEX SODIUM 200 MG/2 ML VIAL ONE (15:34)
[2022-02-23] MEDS ORDERED: Meropenem 2 GM in Sodium Chloride 0.9% 100 ML IVPB SCH (16:00)
[2022-02-23] MEDS ORDERED: Phenylephrine 10 MG/ML VIAL ONE (16:30)
[2022-02-23] MEDS ORDERED: Ondansetron PF 4 MG/2 ML Vial ONE (16:30)
[2022-02-23] MEDS ORDERED: Dexamethasone 20 MG/5 ML VIAL ONE (16:30)
[2022-02-23] MEDS ORDERED: PROPOFOL 200 MG/20 ML VIAL ONE (16:30)
[2022-02-23] MEDS ORDERED: Rocuronium Bromide 10 MG/ML (10ML VIAL) ONE (16:30)
[2022-02-23] MEDS ORDERED: ePHEDrine 50 MG/ML VIAL ONE (16:30)
[2022-02-23] MEDS ORDERED: Albumin 5% 500 ML ONE (16:40)
[2022-02-23] MEDS ORDERED: Ondansetron HCl/PF 4 MG/2 ML Vial IVP PRN ×2 (17:33→18:15)
[2022-02-23] MEDS ORDERED: Promethazine HCl 25 MG/ML VIAL IM PRN (17:33)
[2022-02-23] MEDS ORDERED: Promethazine HCl 25 MG/ML VIAL IVPB PRN (17:33)
[2022-02-23] MEDS ORDERED: FENTANYL 50 MCG/ML 1 ML VIAL ONE ×2 (17:37→18:51)
[2022-02-23] MEDS ORDERED: Morphine 4 MG/ML VIAL SLOW IVP PRN (17:38)
[2022-02-23] MEDS ORDERED: HYDROmorphone 0.5 MG/0.5 ML SYRINGE ONE (17:57)
[2022-02-23] MEDS ORDERED: Non-Formulary Medication 1 EACH PO PRN (18:02)
[2022-02-23] MEDS ORDERED: Promethazine HCl 25 MG/ML VIAL IM/IV PRN (18:15)
[2022-02-23] MEDS ORDERED: HYDROmorphone 2 MG/ML VIAL SLOW IVP PRN (18:15)
[2022-02-23] MEDS ORDERED: Labetalol HCl 100 MG/20 ML VIAL ONE (18:20)
[2022-02-23] MEDS ORDERED: Labetalol HCl 100 MG/20 ML VIAL SLOW IVP PRN (18:36)
[2022-02-23] MEDS: Sodium Chloride 0.45% 1,000 ML IV SCH (20:45)
[2022-02-23] MEDS ORDERED: Enoxaparin Sodium 30 MG/0.3 ML SYRINGE SC SCH (21:00)
[2022-02-23] MEDS: clonazePAM 0.5 MG TAB PO SCH (22:54)
[2022-02-24] MEDS: Heparin 5,000 UNITS/ML VIAL SC SCH ×4 (00:44→21:32)
[2022-02-24 04:51] LABS: #Lymphocytes 0.8 thou/uL (1.20-3.40); #Monocytes 1.1 thou/uL (0.11-0.59); #Neutrophils 11.3 thou/uL (1.40-6.50); %Eosinophils 0.1 % (0.0-10.0); %Lymphocytes 5.7 % (21.0-51.0); %Monocytes 8.6 % (0.0-10.0); %Neutrophils 85.5 % (42.0-75.0); Hemoglobin 9.9 g/dL (12.0-16.0); Mean Corpuscular Hemoglobin 32.4 pg (27.0-31.0); Mean Corpuscular Volume 95.4 fl (78.0-98.0); Mean Platelet Volume 10.3 fL (7.4-10.4); Platelet Count 196 10x3/uL (130-400); RBC Distribution Width 11.9 % (11.5-14.5); Red Blood Cell (RBC) Count 3.05 mill/uL (4.20-5.40); White Blood Cell (WBC) Count 13.2 10x3/uL (4.8-10.8)
[2022-02-24] MEDS: Sodium Chloride 0.45% 1,000 ML IV SCH ×2 (05:00→09:45)
[2022-02-24 05:16] LABS: Phosphorus 4.5 mg/dL (2.3-4.7)
[2022-02-24] MEDS: Levothyroxine Sodium 75 MCG TAB PO SCH (05:16)
[2022-02-24 05:19] LABS: ALT (SGPT) 11 U/L (8-55); AST (SGOT) 26 U/L (5-34); Albumin 3.4 g/dL (3.4-4.8); Alkaline Phosphatase 53 U/L (40-110); Anion Gap 16 mmol/L (10-20); BUN (Urea Nitrogen) 88 mg/dL (9.8-20.1); Bilirubin, Total 0.4 mg/dL (0.2-1.2); Calc. Creatinine Clearance 36 mL/min (70-130); Calcium 9.5 mg/dL (7.8-10.44); Carbon Dioxide 37 mmol/L (23-31); Chloride 95 mmol/L (98-107); Estimated GFR 26; Glucose 177 mg/dL (83-110); Magnesium 2.4 mg/dL (1.6-2.6); Potassium 3.4 mmol/L (3.5-5.1); Protein, Total 6.4 g/dL (5.8-8.1); Sodium 145 mmol/L (136-145)
[2022-02-24] MEDS: busPIRone HCl 10 MG TAB PO SCH ×3 (08:15→21:32)
[2022-02-24] MEDS: cefTRIAXone\\ROCEPHIN 1 GM in Sodium Chloride 0.9% 100 ML IVPB SCH (08:15)
[2022-02-24] MEDS: Carvedilol 3.125 MG TAB PO SCH (08:15)
[2022-02-24 08:27] LABS: Hemoglobin 9.3 g/dL (12.0-16.0)
[2022-02-24] MEDS ORDERED: Potassium Chloride 20 MEQ TAB PO SCH (13:00)
[2022-02-24] MEDS: Sodium Chloride 0.9% 1,000 ML IV SCH (14:23)
[2022-02-24] MEDS: Morphine 4 MG/ML VIAL SLOW IVP PRN ×2 (15:08→21:33)
[2022-02-24] MEDS: clonazePAM 0.5 MG TAB PO SCH (21:32)
[2022-02-25] MEDS: Sodium Chloride 0.9% 1,000 ML IV SCH ×3 (05:30→20:53)
[2022-02-25] MEDS: Levothyroxine Sodium 75 MCG TAB PO SCH (05:30)
[2022-02-25] MEDS: Morphine 4 MG/ML VIAL SLOW IVP PRN ×6 (05:50→21:02)
[2022-02-25] MEDS: cefTRIAXone\\ROCEPHIN 1 GM in Sodium Chloride 0.9% 100 ML IVPB SCH (08:26)
[2022-02-25] MEDS: Heparin 5,000 UNITS/ML VIAL SC SCH ×3 (08:27→20:53)
[2022-02-25] MEDS: busPIRone HCl 10 MG TAB PO SCH ×3 (08:27→20:53)
[2022-02-25] MEDS: Carvedilol 3.125 MG TAB PO SCH (08:27)
[2022-02-25 13:14] LABS: Calc. Creatinine Clearance 88 mL/min (70-130); Calcium 8.9 mg/dL (7.8-10.44); Estimated GFR 77; Glucose 102 mg/dL (83-110)
[2022-02-25 13:15] LABS: BUN (Urea Nitrogen) 59 mg/dL (9.8-20.1)
[2022-02-25 13:20] LABS: Anion Gap 15 mmol/L (10-20); Carbon Dioxide 32 mmol/L (23-31); Chloride 102 mmol/L (98-107); Potassium 3.6 mmol/L (3.5-5.1); Sodium 145 mmol/L (136-145)
[2022-02-25] MEDS ORDERED: traMADol HCl 50 MG TAB PO PRN (18:52)
[2022-02-25] MEDS ORDERED: HYDROcodone/Acetaminophen 5/325 mg Tablet PO PRN (18:52)
[2022-02-25] MEDS ORDERED: Acetaminophen 325 MG TAB PO PRN (18:52)
[2022-02-25] MEDS: clonazePAM 0.5 MG TAB PO SCH (20:53)
[2022-02-26] MEDS: Levothyroxine Sodium 75 MCG TAB PO SCH (05:23)
[2022-02-26 06:00] LABS: #Eosinphils 0.2 thou/uL (0.0-0.7); #Lymphocytes 0.8 thou/uL (1.20-3.40); #Monocytes 0.5 thou/uL (0.11-0.59); #Neutrophils 3.7 thou/uL (1.40-6.50); %Basophils 0.6 % (0.0-1.0); %Eosinophils 4.7 % (0.0-10.0); %Lymphocytes 14.8 % (21.0-51.0); %Monocytes 9.6 % (0.0-10.0); %Neutrophils 70.3 % (42.0-75.0); Hemoglobin 8.4 g/dL (12.0-16.0); Mean Corpuscular Hemoglobin 31.8 pg (27.0-31.0); Mean Corpuscular Volume 96.4 fl (78.0-98.0); Mean Platelet Volume 9.5 fL (7.4-10.4); Platelet Count 145 10x3/uL (130-400); RBC Distribution Width 11.5 % (11.5-14.5); Red Blood Cell (RBC) Count 2.65 mill/uL (4.20-5.40); White Blood Cell (WBC) Count 5.3 10x3/uL (4.8-10.8)
[2022-02-26 06:18] LABS: Anion Gap 15 mmol/L (10-20); BUN (Urea Nitrogen) 36 mg/dL (9.8-20.1); Calc. Creatinine Clearance 103 mL/min (70-130); Calcium 9.3 mg/dL (7.8-10.44); Carbon Dioxide 34 mmol/L (23-31); Chloride 103 mmol/L (98-107); Estimated GFR 88; Glucose 87 mg/dL (83-110); Potassium 3.6 mmol/L (3.5-5.1); Sodium 148 mmol/L (136-145)
[2022-02-26] MEDS: cefTRIAXone\\ROCEPHIN 1 GM in Sodium Chloride 0.9% 100 ML IVPB SCH (08:13)
[2022-02-26] MEDS: busPIRone HCl 10 MG TAB PO SCH ×3 (08:13→19:35)
[2022-02-26] MEDS: Heparin 5,000 UNITS/ML VIAL SC SCH ×3 (08:13→19:35)
[2022-02-26] MEDS: Carvedilol 3.125 MG TAB PO SCH (08:14)
[2022-02-26] MEDS ORDERED: Aspirin 300 MG Suppository PR SCH (10:23)
[2022-02-26 10:25] LABS: PTT 23.8 sec (22.9-36.1)
[2022-02-26 11:31] LABS: #Eosinphils 0.2 thou/uL (0.0-0.7); #Lymphocytes 0.7 thou/uL (1.20-3.40); #Monocytes 0.5 thou/uL (0.11-0.59); #Neutrophils 4.8 thou/uL (1.40-6.50); %Basophils 0.2 % (0.0-1.0); %Eosinophils 3.2 % (0.0-10.0); %Lymphocytes 10.7 % (21.0-51.0); %Neutrophils 77.8 % (42.0-75.0); Hemoglobin 8.2 g/dL (12.0-16.0); Mean Corpuscular HGB CONC 32.6 g/dL (32.0-36.0); Mean Corpuscular Hemoglobin 31.6 pg (27.0-31.0); Mean Corpuscular Volume 96.8 fl (78.0-98.0); Mean Platelet Volume 9.5 fL (7.4-10.4); Platelet Count 157 10x3/uL (130-400); RBC Distribution Width 11.5 % (11.5-14.5); Red Blood Cell (RBC) Count 2.59 mill/uL (4.20-5.40); White Blood Cell (WBC) Count 6.2 10x3/uL (4.8-10.8)
[2022-02-26 11:48] LABS: ALT (SGPT) 12 U/L (8-55); AST (SGOT) 21 U/L (5-34); Albumin 3.2 g/dL (3.4-4.8); Alkaline Phosphatase 54 U/L (40-110); Anion Gap 15 mmol/L (10-20); BUN (Urea Nitrogen) 30 mg/dL (9.8-20.1); Bilirubin, Total 0.3 mg/dL (0.2-1.2); CK (CPK) 80 U/L (29-168); Calc. Creatinine Clearance 104 mL/min (70-130); Calcium 9.2 mg/dL (7.8-10.44); Carbon Dioxide 30 mmol/L (23-31); Chloride 104 mmol/L (98-107); Estimated GFR 88; Globulin 2.7 g/dL (2.4-3.5); Glucose 101 mg/dL (83-110); Potassium 3.7 mmol/L (3.5-5.1); Protein, Total 5.9 g/dL (5.8-8.1); Sodium 145 mmol/L (136-145)
[2022-02-26] MEDS: Morphine 4 MG/ML VIAL SLOW IVP PRN ×3 (15:51→22:24)
[2022-02-26] MEDS: clonazePAM 0.5 MG TAB PO SCH (19:35)
[2022-02-26] MEDS: Ondansetron ODT 4 MG TAB PO PRN (19:35)
[2022-02-27] MEDS: Levothyroxine Sodium 75 MCG TAB PO SCH (05:20)
[2022-02-27 06:05] LABS: Anion Gap 13 mmol/L (10-20); BUN (Urea Nitrogen) 21 mg/dL (9.8-20.1); Calc. Creatinine Clearance 94 mL/min (70-130); Calcium 9.5 mg/dL (7.8-10.44); Carbon Dioxide 35 mmol/L (23-31); Chloride 103 mmol/L (98-107); Estimated GFR 83; Glucose 95 mg/dL (83-110); Potassium 3.3 mmol/L (3.5-5.1); Sodium 148 mmol/L (136-145)
[2022-02-27] MEDS: busPIRone HCl 10 MG TAB PO SCH ×4 (08:49→20:47)
[2022-02-27] MEDS: Heparin 5,000 UNITS/ML VIAL SC SCH ×3 (08:49→20:47)
[2022-02-27] MEDS: Carvedilol 3.125 MG TAB PO SCH ×2 (08:49→08:50)
[2022-02-27] MEDS: cefTRIAXone\\ROCEPHIN 1 GM in Sodium Chloride 0.9% 100 ML IVPB SCH (08:49)
[2022-02-27] MEDS: 1/2 NS w/KCL 20 mEq 1,000 ML IV SCH (14:40)
[2022-02-27] MEDS: Ondansetron ODT 4 MG TAB PO PRN (17:21)
[2022-02-27] MEDS: clonazePAM 0.5 MG TAB PO SCH (20:47)
[2022-02-27] MEDS: Ondansetron PF 4 MG/2 ML Vial IVP PRN (23:00)
[2022-02-28] MEDS: 1/2 NS w/KCL 20 mEq 1,000 ML IV SCH ×2 (00:12→15:25)
[2022-02-28] MEDS: Ondansetron PF 4 MG/2 ML Vial IVP PRN ×3 (04:19→20:19)
[2022-02-28] MEDS: Levothyroxine Sodium 75 MCG TAB PO SCH (04:19)
[2022-02-28 05:19] LABS: Anion Gap 13 mmol/L (10-20); BUN (Urea Nitrogen) 18 mg/dL (9.8-20.1); Calc. Creatinine Clearance 88 mL/min (70-130); Calcium 9.6 mg/dL (7.8-10.44); Carbon Dioxide 34 mmol/L (23-31); Chloride 96 mmol/L (98-107); Estimated GFR 77; Glucose 166 mg/dL (83-110); Potassium 3.1 mmol/L (3.5-5.1); Sodium 140 mmol/L (136-145)
[2022-02-28] MEDS: cefTRIAXone\\ROCEPHIN 1 GM in Sodium Chloride 0.9% 100 ML IVPB SCH (08:16)
[2022-02-28] MEDS: Heparin 5,000 UNITS/ML VIAL SC SCH ×3 (08:16→20:20)
[2022-02-28] MEDS: Carvedilol 3.125 MG TAB PO SCH (08:17)
[2022-02-28] MEDS: busPIRone HCl 10 MG TAB PO SCH ×3 (08:17→20:20)
[2022-02-28] MEDS ORDERED: Potassium Chloride 20 MEQ TAB PO SCH (08:45)
[2022-02-28] MEDS: Aspirin 325 mg Enteric Coated Tablet PO SCH (12:14)
[2022-02-28] MEDS: Acetaminophen 325 MG TAB PO PRN (20:19)
[2022-02-28] MEDS: clonazePAM 0.5 MG TAB PO SCH (20:20)
[2022-03-01] MEDS: traMADol HCl 50 MG TAB PO PRN ×2 (00:09→04:02)
[2022-03-01] MEDS: 1/2 NS w/KCL 20 mEq 1,000 ML IV SCH (00:10)
[2022-03-01 05:05] LABS: #Eosinphils 0.2 thou/uL (0.0-0.7); #Lymphocytes 1.4 thou/uL (1.20-3.40); #Monocytes 1.3 thou/uL (0.11-0.59); #Neutrophils 11.1 thou/uL (1.40-6.50); %Basophils 0.3 % (0.0-1.0); %Eosinophils 1.4 % (0.0-10.0); %Lymphocytes 9.7 % (21.0-51.0); %Monocytes 9.4 % (0.0-10.0); %Neutrophils 79.2 % (42.0-75.0); Hemoglobin 8.6 g/dL (12.0-16.0); Mean Corpuscular HGB CONC 33.4 g/dL (32.0-36.0); Mean Corpuscular Hemoglobin 31.3 pg (27.0-31.0); Mean Corpuscular Volume 93.7 fl (78.0-98.0); Mean Platelet Volume 8.7 fL (7.4-10.4); Platelet Count 258 10x3/uL (130-400); RBC Distribution Width 11.7 % (11.5-14.5); Red Blood Cell (RBC) Count 2.73 mill/uL (4.20-5.40)
[2022-03-01 05:33] LABS: ALT (SGPT) 12 U/L (8-55); AST (SGOT) 30 U/L (5-34); Albumin 3.4 g/dL (3.4-4.8); Alkaline Phosphatase 61 U/L (40-110); Anion Gap 11 mmol/L (10-20); BUN (Urea Nitrogen) 17 mg/dL (9.8-20.1); Bilirubin, Total 0.4 mg/dL (0.2-1.2); Calc. Creatinine Clearance 89 mL/min (70-130); Calcium 9.1 mg/dL (7.8-10.44); Carbon Dioxide 33 mmol/L (23-31); Chloride 99 mmol/L (98-107); Estimated GFR 78; Globulin 2.6 g/dL (2.4-3.5); Glucose 112 mg/dL (83-110); Magnesium 1.5 mg/dL (1.6-2.6); Potassium 3.3 mmol/L (3.5-5.1); Sodium 140 mmol/L (136-145)
[2022-03-01] MEDS: Levothyroxine Sodium 75 MCG TAB PO SCH (05:54)
[2022-03-01] MEDS ORDERED: Magnesium 2 GM/50 ML(in water) 2 GM in Premix Bag 1 BAG IVPB SCH (08:15)
[2022-03-01] MEDS ORDERED: Potassium Chloride 20 MEQ TAB PO SCH (08:15)
[2022-03-01] MEDS: busPIRone HCl 10 MG TAB PO SCH ×3 (09:52→20:35)
[2022-03-01] MEDS: Carvedilol 3.125 MG TAB PO SCH (09:52)
[2022-03-01] MEDS: Acetaminophen 325 MG TAB PO PRN ×3 (09:52→18:10)
[2022-03-01] MEDS: Heparin 5,000 UNITS/ML VIAL SC SCH ×3 (09:53→20:37)
[2022-03-01] MEDS: Aspirin 325 mg Enteric Coated Tablet PO SCH (09:54)
[2022-03-01] MEDS: cefTRIAXone\\ROCEPHIN 1 GM in Sodium Chloride 0.9% 100 ML IVPB SCH (10:05)
[2022-03-01] MEDS: Potassium Chloride 20 MEQ in Lactated Ringer's 1,000 ML IV SCH (17:32)
[2022-03-01] MEDS: clonazePAM 0.5 MG TAB PO SCH (20:35)
[2022-03-02] MEDS: Acetaminophen 325 MG TAB PO PRN ×5 (00:43→19:55)
[2022-03-02] MEDS: Levothyroxine Sodium 75 MCG TAB PO SCH (05:26)
[2022-03-02] MEDS: Potassium Chloride 20 MEQ in Lactated Ringer's 1,000 ML IV SCH ×2 (05:27→14:25)
[2022-03-02] MEDS: cefTRIAXone\\ROCEPHIN 1 GM in Sodium Chloride 0.9% 100 ML IVPB SCH (08:54)
[2022-03-02] MEDS: Heparin 5,000 UNITS/ML VIAL SC SCH ×2 (08:55→14:25)
[2022-03-02] MEDS: Carvedilol 3.125 MG TAB PO SCH (08:55)
[2022-03-02] MEDS: busPIRone HCl 10 MG TAB PO SCH ×3 (08:55→19:55)
[2022-03-02] MEDS: Aspirin 325 mg Enteric Coated Tablet PO SCH (08:55)
[2022-03-02 09:56] LABS: #Eosinphils 0.2 thou/uL (0.0-0.7); #Lymphocytes 1.3 thou/uL (1.20-3.40); #Monocytes 1.3 thou/uL (0.11-0.59); #Neutrophils 11.2 thou/uL (1.40-6.50); %Basophils 0.2 % (0.0-1.0); %Eosinophils 1.7 % (0.0-10.0); %Monocytes 9.3 % (0.0-10.0); %Neutrophils 79.8 % (42.0-75.0); Hemoglobin 8.2 g/dL (12.0-16.0); Mean Corpuscular HGB CONC 34.9 g/dL (32.0-36.0); Mean Corpuscular Hemoglobin 32.3 pg (27.0-31.0); Mean Corpuscular Volume 92.6 fl (78.0-98.0); Mean Platelet Volume 8.6 fL (7.4-10.4); Platelet Count 260 10x3/uL (130-400); RBC Distribution Width 11.7 % (11.5-14.5); Red Blood Cell (RBC) Count 2.53 mill/uL (4.20-5.40); White Blood Cell (WBC) Count 14.1 10x3/uL (4.8-10.8)
[2022-03-02 10:16] LABS: Anion Gap 12 mmol/L (10-20); BUN (Urea Nitrogen) 13 mg/dL (9.8-20.1); Calc. Creatinine Clearance 110 mL/min (70-130); Calcium 8.4 mg/dL (7.8-10.44); Carbon Dioxide 30 mmol/L (23-31); Chloride 101 mmol/L (98-107); Estimated GFR 89; Glucose 98 mg/dL (83-110); Magnesium 1.7 mg/dL (1.6-2.6); Potassium 3.9 mmol/L (3.5-5.1); Sodium 139 mmol/L (136-145)
[2022-03-02 13:57] VITALS: BMI 38.9
[2022-03-02] MEDS: Ketorolac Tromethamine 30 MG/ML VIAL IVP PRN ×2 (14:25→19:54)
[2022-03-02] MEDS: Famotidine 20 MG TAB PO SCH (19:54)
[2022-03-02] MEDS: clonazePAM 0.5 MG TAB PO SCH (19:55)
[2022-03-03] MEDS: Potassium Chloride 20 MEQ in Lactated Ringer's 1,000 ML IV SCH ×2 (01:00→02:49)
[2022-03-03] MEDS: Ketorolac Tromethamine 30 MG/ML VIAL IVP PRN ×4 (01:00→21:46)
[2022-03-03] MEDS: Acetaminophen 325 MG TAB PO PRN ×6 (01:01→20:26)
[2022-03-03] MEDS: Levothyroxine Sodium 75 MCG TAB PO SCH (05:30)
[2022-03-03] MEDS: cefTRIAXone\\ROCEPHIN 1 GM in Sodium Chloride 0.9% 100 ML IVPB SCH (09:17)
[2022-03-03] MEDS: Enoxaparin Sodium 40 MG/0.4 ML SYRINGE SC SCH (09:18)
[2022-03-03] MEDS: busPIRone HCl 10 MG TAB PO SCH ×3 (09:19→20:25)
[2022-03-03] MEDS: Famotidine 20 MG TAB PO SCH ×2 (09:19→20:25)
[2022-03-03] MEDS: Carvedilol 3.125 MG TAB PO SCH (09:19)
[2022-03-03] MEDS: Aspirin 325 mg Enteric Coated Tablet PO SCH (09:19)
[2022-03-03] MEDS: clonazePAM 0.5 MG TAB PO SCH (20:25)
[2022-03-04] MEDS: Acetaminophen 325 MG TAB PO PRN ×4 (00:57→23:50)
[2022-03-04] MEDS: Ketorolac Tromethamine 30 MG/ML VIAL IVP PRN ×3 (03:49→19:56)
[2022-03-04] MEDS: Levothyroxine Sodium 75 MCG TAB PO SCH (05:26)
[2022-03-04] MEDS: Aspirin 325 mg Enteric Coated Tablet PO SCH (08:34)
[2022-03-04] MEDS: Enoxaparin Sodium 40 MG/0.4 ML SYRINGE SC SCH (08:34)
[2022-03-04] MEDS: Carvedilol 3.125 MG TAB PO SCH (08:35)
[2022-03-04] MEDS: busPIRone HCl 10 MG TAB PO SCH ×3 (08:35→19:56)
[2022-03-04] MEDS: Famotidine 20 MG TAB PO SCH ×2 (08:35→19:56)
[2022-03-04] MEDS: clonazePAM 0.5 MG TAB PO SCH (19:56)
[2022-03-05] MEDS: Ketorolac Tromethamine 30 MG/ML VIAL IVP PRN ×2 (04:53→12:14)
[2022-03-05] MEDS: Levothyroxine Sodium 75 MCG TAB PO SCH (05:02)
[2022-03-05] MEDS: busPIRone HCl 10 MG TAB PO SCH ×2 (09:01→18:20)
[2022-03-05] MEDS: Carvedilol 3.125 MG TAB PO SCH (09:01)
[2022-03-05] MEDS: Aspirin 325 mg Enteric Coated Tablet PO SCH (09:01)
[2022-03-05] MEDS: Famotidine 20 MG TAB PO SCH (09:02)
[2022-03-05] MEDS: Acetaminophen 325 MG TAB PO PRN (09:02)
[2022-03-05] MEDS: Enoxaparin Sodium 40 MG/0.4 ML SYRINGE SC SCH (09:02)
[2022-03-05 16:27] VITALS: BP 121/50; TEMP 98.2
== END 2022-03-05 19:05 | DRG 335 ==
LOC: ERS 16:48 → T4-A 21:16 → SURG A 02-23 19:19 → SURG B 02-23 20:17
PROVIDERS: ADMIT Student in an Organized Health Care Education/Training Program; ATTEND Internal Medicine
PROC: 0D9670Z Drainage of Stomach with Drainage Device, Via Natural or Artificial Opening (ICD-10-PCS; 2022-02-21)
PROC: 3E0G76Z Introduction of Nutritional Substance into Upper GI, Via Natural or Artificial Opening (ICD-10-PCS; 2022-02-21)
PROC: 0DN80ZZ Release Small Intestine, Open Approach (ICD-10-PCS; principal; 2022-02-24)
PROC: 3E0M05Z Introduction of Adhesion Barrier into Peritoneal Cavity, Open Approach (ICD-10-PCS; 2022-02-24)
DX: K56.52 Intestinal adhesions [bands] with complete obstruction (principal); G93.41 Metabolic encephalopathy; I13.0 Hypertensive heart and chronic kidney disease with heart failure and stage 1 through stage 4 chronic kidney disease, or unspecified chronic kidney disease; I50.32 Chronic diastolic (congestive) heart failure; N17.9 Acute kidney failure, unspecified; Z68.41 Body mass index [BMI] 40.0-44.9, adult; N39.0 Urinary tract infection, site not specified; J96.11 Chronic respiratory failure with hypoxia; E87.3 Alkalosis; Z20.822 Contact with and (suspected) exposure to COVID-19; I69.322 Dysarthria following cerebral infarction; F32.A Depression, unspecified; M10.9 Gout, unspecified; D63.1 Anemia in chronic kidney disease; E03.9 Hypothyroidism, unspecified; K21.9 Gastro-esophageal reflux disease without esophagitis; E78.00 Pure hypercholesterolemia, unspecified; M25.511 Pain in right shoulder; R13.10 Dysphagia, unspecified; R53.81 Other malaise; E66.01 Morbid (severe) obesity due to excess calories; E11.22 Type 2 diabetes mellitus with diabetic chronic kidney disease; E11.42 Type 2 diabetes mellitus with diabetic polyneuropathy; E78.1 Pure hyperglyceridemia; E87.6 Hypokalemia; N18.30 Chronic kidney disease, stage 3 unspecified; Z96.653 Presence of artificial knee joint, bilateral; J44.9 Chronic obstructive pulmonary disease, unspecified; Z86.711 Personal history of pulmonary embolism; Z90.49 Acquired absence of other specified parts of digestive tract; Z90.710 Acquired absence of both cervix and uterus; Z88.1 Allergy status to other antibiotic agents; Z88.8 Allergy status to other drugs, medicaments and biological substances; Z88.2 Allergy status to sulfonamides; Z79.02 Long term (current) use of antithrombotics/antiplatelets; Z79.890 Hormone replacement therapy; Z79.82 Long term (current) use of aspirin; Z79.899 Other long term (current) drug therapy; Z87.442 Personal history of urinary calculi; Z90.5 Acquired absence of kidney
CPT/HCPCS: 36415; 36416; 70450; 70551; 71045; 74018; 74019; 74022; 74176; 74250; 76770; 80048; 80053; 81001; 81003; 81015; 82550; 83605; 83690; 83735; 83880; 84100; 84145; 84484; 85025; 85610; 85730; 86850; 86900; 86901; 87040; 87077; 87086; 87186; 87811; 93005; 93010; 93306; 93880; 93970; 95712; 95819; 95957; 96361; 96374; C1751; C1776; J0696; J1100; J1170; J1644; J1650; J1885; J2270; J2370; J2405; J2704; J3010; J3475; J3480; J3490; J7030; J7042; J7050; J7120; P9045; Q0162; Q9963; U0003; U0005

== ENCOUNTER 2022-03-21 12:25 | Inpatient (IN) | payer MEDICARE, OTHER ==
[2022-03-21] MEDS ORDERED: Iopamidol-370 76% 500 ML 1 ML ONE (13:01)
[2022-03-21 13:43] LABS: Hemoglobin 9.8 g/dL (12.0-16.0); Mean Corpuscular HGB CONC 33.5 g/dL (32.0-36.0); Mean Corpuscular Hemoglobin 31.2 pg (27.0-31.0); Mean Corpuscular Volume 93.1 fl (78.0-98.0); Mean Platelet Volume 7.6 fL (7.4-10.4); Platelet Count 368 10x3/uL (130-400); RBC Distribution Width 14.3 % (11.5-14.5); Red Blood Cell (RBC) Count 3.15 mill/uL (4.20-5.40); White Blood Cell (WBC) Count 11.6 10x3/uL (4.8-10.8)
[2022-03-21 13:57] LABS: Band 13 % (5-11); Lymphocytes 10 % (21-51); MDiff Complete? YES; Metamyelocyte 2 % (0-0); Monocytes 2 % (0-10); Myelocyte 1 % (0-0); Neutrophil 72 % (42-75); Ovalocytes SLIGHT = 2-5 cells (100X) (0-1/hpf); Platelet Morphology Comment Appears Adequate; Polychromasia SLIGHT = 2-3 cells (100X) (0-2/hpf)
[2022-03-21 14:06] LABS: ALT (SGPT) 12 U/L (8-55); AST (SGOT) 25 U/L (5-34); Albumin 3.2 g/dL (3.4-4.8); Alkaline Phosphatase 83 U/L (40-110); Anion Gap 17 mmol/L (10-20); BUN (Urea Nitrogen) 8 mg/dL (9.8-20.1); Bilirubin, Total 0.6 mg/dL (0.2-1.2); Calc. Creatinine Clearance 0 mL/min (70-130); Calcium 9.8 mg/dL (7.8-10.44); Carbon Dioxide 26 mmol/L (23-31); Chloride 100 mmol/L (98-107); Estimated GFR 90; Globulin 3.4 g/dL (2.4-3.5); Glucose 123 mg/dL (83-110); Potassium 3.2 mmol/L (3.5-5.1); Protein, Total 6.6 g/dL (5.8-8.1); Sodium 140 mmol/L (136-145)
[2022-03-21] MEDS ORDERED: cefTRIAXone\\ROCEPHIN 1 GM VIAL ONE (14:39)
[2022-03-21] MEDS ORDERED: Morphine 4 MG/ML VIAL ONE (16:07)
[2022-03-21] MEDS ORDERED: Azithromycin 500 MG VIAL ONE (16:12)
[2022-03-21 17:37] LABS: Bacteria/HPF 1+ HPF (None Seen); Bilirubin 1+ (Negative); Blood, Urine Negative (Negative); Clarity Turbid (Clear); Glucose, Urine (Dipstick) Normal (Negative); Ketone, Urine 10 mg/dL (Negative); Leukocyte 75 Leu/uL (Negative); Nitrite Negative (Negative); Protein, Urine (Dipstick) 70 mg/dL (Neg-Trace); RBC/HPF 0-3 HPF (0-3); Specific Gravity, Urine 1.026 (1.002-1.036); WBC/HPF 21-50 HPF (0-3); pH, Urine 6.5 (5.0-9.0)
[2022-03-21] MEDS ORDERED: Ondansetron ODT 4 MG TAB PO PRN (17:52)
[2022-03-21] MEDS ORDERED: Acetaminophen 325 MG TAB PO PRN (17:52)
[2022-03-21] MEDS ORDERED: Senokot S 8.6-50 MG TAB PO PRN (17:52)
[2022-03-21] MEDS ORDERED: Furosemide 20 MG/2 ML VIAL SLOW IVP SCH (18:00)
[2022-03-21] MEDS ORDERED: Fluticasone Propionate Nasal Spray 16 gm Bottle NASAL PRN (18:52)
[2022-03-21] MEDS ORDERED: Polyethylene Glycol OPTH DROP 15 ML BOT EA EYE PRN (18:54)
[2022-03-21 20:21] VITALS: BMI 35.6
[2022-03-21] MEDS: Famotidine 20 MG TAB PO SCH (20:22)
[2022-03-21] MEDS: busPIRone HCl 10 MG TAB PO SCH (20:22)
[2022-03-21] MEDS: Atorvastatin Calcium 40 MG TAB PO SCH (20:22)
[2022-03-21] MEDS: Apixaban 5 MG TAB PO SCH (21:39)
[2022-03-21] MEDS: Fenofibrate Nanocrystallized 145 MG TAB PO SCH (21:39)
[2022-03-21] MEDS: Morphine 4 MG/ML VIAL SLOW IVP PRN (23:29)
[2022-03-22] MEDS: Morphine 4 MG/ML VIAL SLOW IVP PRN ×4 (03:31→20:45)
[2022-03-22] MEDS: Levothyroxine Sodium 75 MCG TAB PO SCH (04:54)
[2022-03-22] MEDS ORDERED: Ketorolac Tromethamine 30 MG/ML VIAL IVP SCH (05:30)
[2022-03-22] MEDS ORDERED: guaiFENesin/DM ER PO SCH (05:30)
[2022-03-22 06:18] LABS: #Eosinphils 0.1 thou/uL (0.0-0.7); #Lymphocytes 1.3 thou/uL (1.20-3.40); #Monocytes 0.8 thou/uL (0.11-0.59); %Basophils 0.1 % (0.0-1.0); %Eosinophils 1.3 % (0.0-10.0); %Lymphocytes 11.6 % (21.0-51.0); %Monocytes 6.9 % (0.0-10.0); %Neutrophils 80.2 % (42.0-75.0); Hemoglobin 9.5 g/dL (12.0-16.0); Mean Corpuscular HGB CONC 31.4 g/dL (32.0-36.0); Mean Corpuscular Hemoglobin 29.7 pg (27.0-31.0); Mean Corpuscular Volume 94.6 fl (78.0-98.0); Mean Platelet Volume 7.3 fL (7.4-10.4); Platelet Count 351 10x3/uL (130-400); RBC Distribution Width 14.4 % (11.5-14.5); Red Blood Cell (RBC) Count 3.21 mill/uL (4.20-5.40); White Blood Cell (WBC) Count 11.3 10x3/uL (4.8-10.8)
[2022-03-22 06:43] LABS: Anion Gap 16 mmol/L (10-20); BUN (Urea Nitrogen) 8 mg/dL (9.8-20.1); Calc. Creatinine Clearance 115 mL/min (70-130); Calcium 9.6 mg/dL (7.8-10.44); Carbon Dioxide 32 mmol/L (23-31); Chloride 96 mmol/L (98-107); Estimated GFR 91; Glucose 111 mg/dL (83-110); Potassium 2.9 mmol/L (3.5-5.1); Sodium 141 mmol/L (136-145)
[2022-03-22] MEDS: Aspirin 81 mg Enteric Coated Tablet PO SCH (09:08)
[2022-03-22] MEDS: Doxycycline 100 MG CAP PO SCH ×2 (09:08→20:47)
[2022-03-22] MEDS: Carvedilol 3.125 MG TAB PO SCH (09:08)
[2022-03-22] MEDS: Apixaban 5 MG TAB PO SCH ×2 (09:08→20:47)
[2022-03-22] MEDS: Ascorbic Acid 500 mg Chewable Tablet PO SCH (09:08)
[2022-03-22] MEDS: Cholecalciferol 1,000 UNITS (25 MCG) TAB PO SCH (09:08)
[2022-03-22] MEDS: Polyethylene Glycol 3350 17 GM Packet PO SCH (09:09)
[2022-03-22] MEDS: busPIRone HCl 10 MG TAB PO SCH ×3 (09:09→20:47)
[2022-03-22] MEDS: Stress 600 With Zinc 1 TAB PO SCH (09:09)
[2022-03-22] MEDS: Famotidine 20 MG TAB PO SCH ×2 (09:09→20:47)
[2022-03-22] MEDS: cefTRIAXone\\ROCEPHIN 1 GM in Sodium Chloride 0.9% 100 ML IVPB SCH (15:18)
[2022-03-22] MEDS: guaiFENesin/DM ER PO SCH (20:47)
[2022-03-22] MEDS: Fenofibrate Nanocrystallized 145 MG TAB PO SCH (20:47)
[2022-03-22] MEDS: Atorvastatin Calcium 40 MG TAB PO SCH (20:47)
[2022-03-23] MEDS ORDERED: Electrolyte Replacement Protocol 1 EACH FS SCH (00:30)
[2022-03-23] MEDS ORDERED: Potassium Chloride 20 MEQ TAB PO SCH (01:00)
[2022-03-23] MEDS: traMADol HCl 50 MG TAB PO PRN ×3 (02:27→14:55)
[2022-03-23] MEDS: Guaifenesin DM 100-10/5 ML UDCUP PO PRN ×3 (03:25→15:02)
[2022-03-23] MEDS: Morphine 4 MG/ML VIAL SLOW IVP PRN ×2 (05:00→12:10)
[2022-03-23] MEDS: Levothyroxine Sodium 75 MCG TAB PO SCH (05:01)
[2022-03-23 07:20] LABS: #Eosinphils 0.2 thou/uL (0.0-0.7); #Lymphocytes 1.5 thou/uL (1.20-3.40); #Monocytes 0.9 thou/uL (0.11-0.59); #Neutrophils 10.5 thou/uL (1.40-6.50); %Basophils 0.1 % (0.0-1.0); %Eosinophils 1.4 % (0.0-10.0); %Lymphocytes 11.2 % (21.0-51.0); %Monocytes 6.6 % (0.0-10.0); %Neutrophils 80.7 % (42.0-75.0); Hemoglobin 9.9 g/dL (12.0-16.0); Mean Corpuscular HGB CONC 31.8 g/dL (32.0-36.0); Mean Corpuscular Hemoglobin 30.2 pg (27.0-31.0); Mean Corpuscular Volume 95.1 fl (78.0-98.0); Mean Platelet Volume 7.5 fL (7.4-10.4); Platelet Count 413 10x3/uL (130-400); RBC Distribution Width 14.5 % (11.5-14.5); Red Blood Cell (RBC) Count 3.27 mill/uL (4.20-5.40)
[2022-03-23 07:38] LABS: Anion Gap 17 mmol/L (10-20); BUN (Urea Nitrogen) 11 mg/dL (9.8-20.1); Calc. Creatinine Clearance 108 mL/min (70-130); Calcium 9.5 mg/dL (7.8-10.44); Carbon Dioxide 27 mmol/L (23-31); Chloride 98 mmol/L (98-107); Estimated GFR 90; Glucose 99 mg/dL (83-110); Potassium 3.8 mmol/L (3.5-5.1); Sodium 138 mmol/L (136-145)
[2022-03-23] MEDS: Apixaban 5 MG TAB PO SCH ×2 (08:44→20:49)
[2022-03-23] MEDS: busPIRone HCl 10 MG TAB PO SCH ×3 (08:44→20:50)
[2022-03-23] MEDS: Doxycycline 100 MG CAP PO SCH ×2 (08:44→20:51)
[2022-03-23] MEDS: Aspirin 81 mg Enteric Coated Tablet PO SCH (08:45)
[2022-03-23] MEDS: Ascorbic Acid 500 mg Chewable Tablet PO SCH (08:45)
[2022-03-23] MEDS: guaiFENesin/DM ER PO SCH ×2 (08:45→20:52)
[2022-03-23] MEDS: Cholecalciferol 1,000 UNITS (25 MCG) TAB PO SCH (08:45)
[2022-03-23] MEDS: Carvedilol 3.125 MG TAB PO SCH (08:46)
[2022-03-23] MEDS: Polyethylene Glycol 3350 17 GM Packet PO SCH (08:46)
[2022-03-23] MEDS: Famotidine 20 MG TAB PO SCH ×2 (08:46→20:51)
[2022-03-23] MEDS ORDERED: Dexamethasone 20 MG/5 ML VIAL SLOW IVP SCH (11:00)
[2022-03-23] MEDS ORDERED: Dexamethasone 4 mg/ml Vial SLOW IVP SCH (11:15)
[2022-03-23] MEDS: Stress 600 With Zinc 1 TAB PO SCH (12:00)
[2022-03-23] MEDS: cefTRIAXone\\ROCEPHIN 1 GM in Sodium Chloride 0.9% 100 ML IVPB SCH (12:01)
[2022-03-23] MEDS ORDERED: ALPRAZolam 0.25 MG TAB PO SCH (14:45)
[2022-03-23] MEDS ORDERED: Venlafaxine HCl XR 150 MG CAP PO SCH (16:00)
[2022-03-23] MEDS ORDERED: clonazePAM 0.5 MG TAB PO SCH (16:00)
[2022-03-23] MEDS ORDERED: Pregabalin 75 MG CAP PO SCH (16:00)
[2022-03-23] MEDS ORDERED: Venlafaxine HCl XR 75 MG CAP PO SCH (16:30)
[2022-03-23] MEDS: clonazePAM 0.5 MG TAB PO SCH (20:50)
[2022-03-23] MEDS: Atorvastatin Calcium 40 MG TAB PO SCH (20:50)
[2022-03-23] MEDS: Fenofibrate Nanocrystallized 145 MG TAB PO SCH (20:51)
[2022-03-24] MEDS: Levothyroxine Sodium 75 MCG TAB PO SCH (05:14)
[2022-03-24] MEDS: Guaifenesin DM 100-10/5 ML UDCUP PO PRN ×4 (05:16→23:02)
[2022-03-24] MEDS: Doxycycline 100 MG CAP PO SCH ×2 (08:15→21:05)
[2022-03-24] MEDS: clonazePAM 0.5 MG TAB PO SCH ×2 (08:16→21:05)
[2022-03-24] MEDS: Pregabalin 75 MG CAP PO SCH ×2 (08:16→21:06)
[2022-03-24] MEDS: Ascorbic Acid 500 mg Chewable Tablet PO SCH (08:16)
[2022-03-24] MEDS: guaiFENesin/DM ER PO SCH ×2 (08:17→21:06)
[2022-03-24] MEDS: Apixaban 5 MG TAB PO SCH ×2 (08:17→21:04)
[2022-03-24] MEDS: busPIRone HCl 10 MG TAB PO SCH ×3 (08:17→21:05)
[2022-03-24] MEDS: Cholecalciferol 1,000 UNITS (25 MCG) TAB PO SCH (08:17)
[2022-03-24] MEDS: Carvedilol 3.125 MG TAB PO SCH (08:17)
[2022-03-24] MEDS: Venlafaxine HCl XR 75 MG CAP PO SCH (08:18)
[2022-03-24] MEDS: Aspirin 81 mg Enteric Coated Tablet PO SCH (08:18)
[2022-03-24] MEDS: Polyethylene Glycol 3350 17 GM Packet PO SCH (08:18)
[2022-03-24] MEDS: Dexamethasone 4 mg/ml Vial SLOW IVP SCH (08:18)
[2022-03-24] MEDS: Famotidine 20 MG TAB PO SCH ×2 (08:18→21:06)
[2022-03-24] MEDS: Stress 600 With Zinc 1 TAB PO SCH (08:19)
[2022-03-24] MEDS ORDERED: Benzonatate 100 MG CAP PO SCH (10:15)
[2022-03-24] MEDS: cefTRIAXone\\ROCEPHIN 1 GM in Sodium Chloride 0.9% 100 ML IVPB SCH (12:12)
[2022-03-24] MEDS: Benzonatate 100 MG CAP PO SCH ×2 (16:36→21:05)
[2022-03-24] MEDS: Morphine 4 MG/ML VIAL SLOW IVP PRN ×2 (16:51→23:02)
[2022-03-24] MEDS: Atorvastatin Calcium 40 MG TAB PO SCH (21:04)
[2022-03-24] MEDS: Fenofibrate Nanocrystallized 145 MG TAB PO SCH (21:06)
[2022-03-25] MEDS ORDERED: guaiFENesin/Codeine 200 mg/20 mg 10 ml Cup PO SCH (02:15)
[2022-03-25] MEDS: Levothyroxine Sodium 75 MCG TAB PO SCH (05:31)
[2022-03-25] MEDS: Cholecalciferol 1,000 UNITS (25 MCG) TAB PO SCH (08:58)
[2022-03-25] MEDS: Doxycycline 100 MG CAP PO SCH ×2 (08:58→21:07)
[2022-03-25] MEDS: Famotidine 20 MG TAB PO SCH (09:03)
[2022-03-25] MEDS: Venlafaxine HCl XR 75 MG CAP PO SCH (09:03)
[2022-03-25] MEDS: busPIRone HCl 10 MG TAB PO SCH ×3 (09:03→21:07)
[2022-03-25] MEDS: Pregabalin 75 MG CAP PO SCH ×2 (09:03→21:09)
[2022-03-25] MEDS: Benzonatate 100 MG CAP PO SCH ×3 (09:05→21:07)
[2022-03-25] MEDS: Aspirin 81 mg Enteric Coated Tablet PO SCH (09:05)
[2022-03-25] MEDS: clonazePAM 0.5 MG TAB PO SCH ×2 (09:05→21:09)
[2022-03-25] MEDS: Apixaban 5 MG TAB PO SCH ×2 (09:05→21:07)
[2022-03-25] MEDS: Carvedilol 3.125 MG TAB PO SCH (09:07)
[2022-03-25] MEDS: Ascorbic Acid 500 mg Chewable Tablet PO SCH (09:07)
[2022-03-25] MEDS: Stress 600 With Zinc 1 TAB PO SCH (09:08)
[2022-03-25] MEDS: guaiFENesin/DM ER PO SCH ×2 (09:08→21:07)
[2022-03-25] MEDS: Polyethylene Glycol 3350 17 GM Packet PO SCH ×2 (09:09→09:20)
[2022-03-25] MEDS: Dexamethasone 4 mg/ml Vial SLOW IVP SCH (09:21)
[2022-03-25] MEDS ORDERED: Benzonatate 100 MG CAP PO SCH (11:15)
[2022-03-25] MEDS: cefTRIAXone\\ROCEPHIN 1 GM in Sodium Chloride 0.9% 100 ML IVPB SCH (12:32)
[2022-03-25] MEDS ORDERED: guaiFENesin ER 600 MG TAB PO SCH (16:45)
[2022-03-25] MEDS: Morphine 4 MG/ML VIAL SLOW IVP PRN (17:40)
[2022-03-25] MEDS: Fenofibrate Nanocrystallized 145 MG TAB PO SCH (21:07)
[2022-03-25] MEDS: guaiFENesin ER 600 MG TAB PO SCH (21:07)
[2022-03-25] MEDS: Atorvastatin Calcium 40 MG TAB PO SCH (21:07)
[2022-03-25] MEDS: traMADol HCl 50 MG TAB PO PRN (21:20)
[2022-03-26] MEDS: Morphine 4 MG/ML VIAL SLOW IVP PRN ×3 (00:23→13:54)
[2022-03-26] MEDS: Levothyroxine Sodium 75 MCG TAB PO SCH (05:27)
[2022-03-26] MEDS: traMADol HCl 50 MG TAB PO PRN (05:27)
[2022-03-26 07:18] LABS: Anion Gap 15 mmol/L (10-20); BUN (Urea Nitrogen) 16 mg/dL (9.8-20.1); Calc. Creatinine Clearance 115 mL/min (70-130); Calcium 9.5 mg/dL (7.8-10.44); Carbon Dioxide 29 mmol/L (23-31); Chloride 101 mmol/L (98-107); Estimated GFR 91; Glucose 79 mg/dL (83-110); Potassium 3.8 mmol/L (3.5-5.1); Sodium 141 mmol/L (136-145)
[2022-03-26 07:19] LABS: #Eosinphils 0.1 thou/uL (0.0-0.7); #Lymphocytes 1.8 thou/uL (1.20-3.40); #Monocytes 0.9 thou/uL (0.11-0.59); #Neutrophils 8.7 thou/uL (1.40-6.50); %Basophils 0.1 % (0.0-1.0); %Eosinophils 0.8 % (0.0-10.0); %Lymphocytes 15.7 % (21.0-51.0); %Monocytes 7.9 % (0.0-10.0); %Neutrophils 75.6 % (42.0-75.0); Hemoglobin 9.5 g/dL (12.0-16.0); Mean Corpuscular HGB CONC 31.3 g/dL (32.0-36.0); Mean Corpuscular Hemoglobin 29.8 pg (27.0-31.0); Mean Corpuscular Volume 95.1 fl (78.0-98.0); Mean Platelet Volume 7.3 fL (7.4-10.4); Platelet Count 464 10x3/uL (130-400); RBC Distribution Width 15.4 % (11.5-14.5); Red Blood Cell (RBC) Count 3.19 mill/uL (4.20-5.40); White Blood Cell (WBC) Count 11.5 10x3/uL (4.8-10.8)
[2022-03-26] MEDS: Chlorthalidone 25 MG TAB PO SCH (09:52)
[2022-03-26] MEDS: Pregabalin 75 MG CAP PO SCH ×2 (09:52→21:18)
[2022-03-26] MEDS: Ascorbic Acid 500 mg Chewable Tablet PO SCH (09:54)
[2022-03-26] MEDS: Venlafaxine HCl XR 75 MG CAP PO SCH (09:54)
[2022-03-26] MEDS: busPIRone HCl 10 MG TAB PO SCH ×3 (09:54→21:18)
[2022-03-26] MEDS: Cholecalciferol 1,000 UNITS (25 MCG) TAB PO SCH (09:54)
[2022-03-26] MEDS: Benzonatate 100 MG CAP PO SCH ×3 (09:55→21:17)
[2022-03-26] MEDS: Apixaban 5 MG TAB PO SCH ×2 (09:55→21:17)
[2022-03-26] MEDS: Doxycycline 100 MG CAP PO SCH (09:56)
[2022-03-26] MEDS: guaiFENesin ER 600 MG TAB PO SCH ×2 (09:57→21:17)
[2022-03-26] MEDS: guaiFENesin/DM ER PO SCH ×2 (09:57→10:05)
[2022-03-26] MEDS: clonazePAM 0.5 MG TAB PO SCH ×2 (09:57→21:19)
[2022-03-26] MEDS: Losartan 25 MG TAB PO SCH (09:58)
[2022-03-26] MEDS: Stress 600 With Zinc 1 TAB PO SCH (09:59)
[2022-03-26] MEDS: Aspirin 81 mg Enteric Coated Tablet PO SCH (09:59)
[2022-03-26] MEDS: Clopidogrel Bisulfate 75 MG TAB PO SCH (09:59)
[2022-03-26] MEDS: Dexamethasone 4 mg/ml Vial SLOW IVP SCH (09:59)
[2022-03-26] MEDS: Polyethylene Glycol 3350 17 GM Packet PO SCH ×2 (10:00→10:22)
[2022-03-26] MEDS: Carvedilol 3.125 MG TAB PO SCH (11:32)
[2022-03-26] MEDS: cefTRIAXone\\ROCEPHIN 1 GM in Sodium Chloride 0.9% 100 ML IVPB SCH (12:45)
[2022-03-26] MEDS: Fenofibrate Nanocrystallized 145 MG TAB PO SCH (21:17)
[2022-03-26] MEDS: Atorvastatin Calcium 40 MG TAB PO SCH (21:18)
[2022-03-26] MEDS: Acetaminophen/Codeine 30-300mg Tablet PO PRN (21:18)
[2022-03-27] MEDS: Guaifenesin DM 100-10/5 ML UDCUP PO PRN (03:16)
[2022-03-27] MEDS: Acetaminophen/Codeine 30-300mg Tablet PO PRN ×2 (03:16→11:55)
[2022-03-27] MEDS: Levothyroxine Sodium 75 MCG TAB PO SCH (06:07)
[2022-03-27] MEDS: traMADol HCl 50 MG TAB PO PRN (06:07)
[2022-03-27 06:29] LABS: #Eosinphils 0.1 thou/uL (0.0-0.7); #Lymphocytes 1.3 thou/uL (1.20-3.40); #Monocytes 0.9 thou/uL (0.11-0.59); #Neutrophils 10.2 thou/uL (1.40-6.50); %Basophils 0.2 % (0.0-1.0); %Eosinophils 0.6 % (0.0-10.0); %Lymphocytes 10.2 % (21.0-51.0); %Neutrophils 81.9 % (42.0-75.0); Hemoglobin 9.4 g/dL (12.0-16.0); Mean Corpuscular HGB CONC 32.6 g/dL (32.0-36.0); Mean Corpuscular Hemoglobin 30.3 pg (27.0-31.0); Mean Corpuscular Volume 93.1 fl (78.0-98.0); Mean Platelet Volume 7.3 fL (7.4-10.4); Platelet Count 500 10x3/uL (130-400); RBC Distribution Width 15.1 % (11.5-14.5); White Blood Cell (WBC) Count 12.4 10x3/uL (4.8-10.8)
[2022-03-27 06:47] LABS: Anion Gap 14 mmol/L (10-20); BUN (Urea Nitrogen) 20 mg/dL (9.8-20.1); Calc. Creatinine Clearance 106 mL/min (70-130); Calcium 9.8 mg/dL (7.8-10.44); Carbon Dioxide 30 mmol/L (23-31); Chloride 98 mmol/L (98-107); Estimated GFR 89; Glucose 125 mg/dL (83-110); Potassium 4.1 mmol/L (3.5-5.1); Sodium 138 mmol/L (136-145)
[2022-03-27] MEDS ORDERED: Dexamethasone 4 MG TAB PO SCH (08:00)
[2022-03-27] MEDS: Aspirin 81 mg Enteric Coated Tablet PO SCH (10:16)
[2022-03-27] MEDS: guaiFENesin ER 600 MG TAB PO SCH (10:16)
[2022-03-27] MEDS: Chlorthalidone 25 MG TAB PO SCH (10:17)
[2022-03-27] MEDS: Pregabalin 75 MG CAP PO SCH (10:18)
[2022-03-27] MEDS: Apixaban 5 MG TAB PO SCH (10:20)
[2022-03-27] MEDS: Cholecalciferol 1,000 UNITS (25 MCG) TAB PO SCH (10:20)
[2022-03-27] MEDS: Clopidogrel Bisulfate 75 MG TAB PO SCH (10:20)
[2022-03-27] MEDS: Venlafaxine HCl XR 75 MG CAP PO SCH (10:20)
[2022-03-27] MEDS: Benzonatate 100 MG CAP PO SCH (10:21)
[2022-03-27] MEDS: Losartan 25 MG TAB PO SCH (10:21)
[2022-03-27] MEDS: clonazePAM 0.5 MG TAB PO SCH (10:22)
[2022-03-27] MEDS: busPIRone HCl 10 MG TAB PO SCH (10:23)
[2022-03-27] MEDS: Stress 600 With Zinc 1 TAB PO SCH (10:23)
[2022-03-27] MEDS: Ascorbic Acid 500 mg Chewable Tablet PO SCH (10:23)
[2022-03-27] MEDS: Polyethylene Glycol 3350 17 GM Packet PO SCH (10:23)
[2022-03-27] MEDS: Carvedilol 3.125 MG TAB PO SCH (10:39)
[2022-03-27 17:53] VITALS: BP 132/62; TEMP 97.3
== END 2022-03-27 13:15 | DRG 177 ==
LOC: ERS 12:25 → T4-B 16:41 → OBSVTOIN 03-22 12:20
PROVIDERS: ADMIT Student in an Organized Health Care Education/Training Program; ATTEND Internal Medicine
PROC: 8E0ZXY6 Isolation (ICD-10-PCS; 2022-03-22)
PROC: 3E0333Z Introduction of Anti-inflammatory into Peripheral Vein, Percutaneous Approach (ICD-10-PCS; principal; 2022-03-23)
DX: U07.1 COVID-19 (principal); J18.9 Pneumonia, unspecified organism; J96.21 Acute and chronic respiratory failure with hypoxia; I50.32 Chronic diastolic (congestive) heart failure; I13.0 Hypertensive heart and chronic kidney disease with heart failure and stage 1 through stage 4 chronic kidney disease, or unspecified chronic kidney disease; J98.11 Atelectasis; N39.0 Urinary tract infection, site not specified; F32.A Depression, unspecified; E66.9 Obesity, unspecified; M10.9 Gout, unspecified; E03.9 Hypothyroidism, unspecified; E78.5 Hyperlipidemia, unspecified; K21.9 Gastro-esophageal reflux disease without esophagitis; Z96.653 Presence of artificial knee joint, bilateral; E87.6 Hypokalemia; E78.00 Pure hypercholesterolemia, unspecified; N18.2 Chronic kidney disease, stage 2 (mild); D63.1 Anemia in chronic kidney disease; E11.22 Type 2 diabetes mellitus with diabetic chronic kidney disease; E11.40 Type 2 diabetes mellitus with diabetic neuropathy, unspecified; Z88.1 Allergy status to other antibiotic agents; Z88.8 Allergy status to other drugs, medicaments and biological substances; Z79.01 Long term (current) use of anticoagulants; Z79.82 Long term (current) use of aspirin; Z79.899 Other long term (current) drug therapy; Z86.73 Personal history of transient ischemic attack (TIA), and cerebral infarction without residual deficits; Z86.711 Personal history of pulmonary embolism; Z90.49 Acquired absence of other specified parts of digestive tract; Z98.890 Other specified postprocedural states; Z68.35 Body mass index [BMI] 35.0-35.9, adult
CPT/HCPCS: 36415; 71045; 71275; 80048; 80053; 81003; 81015; 83605; 83880; 84484; 85025; 85652; 86140; 87040; 93005; 94760; 96374; 96375; J0456; J0696; J1100; J1885; J1940; J1956; J2270; J3490; J8540; Q9967

== ENCOUNTER 2022-05-31 16:56 | Observation (INO) | payer MEDICARE, OTHER ==
[2022-05-31 18:50] VITALS: BMI 37.4
[2022-05-31] MEDS ORDERED: Zolpidem Tartrate 5 MG TAB PO PRN (23:09)
[2022-05-31] MEDS ORDERED: Benzonatate 100 MG CAP PO PRN (23:15)
[2022-05-31] MEDS ORDERED: Senokot 8.6 MG TAB PO PRN (23:15)
[2022-05-31] MEDS ORDERED: cloNIDine 0.1 MG TAB PO PRN (23:15)
[2022-05-31] MEDS ORDERED: Acetaminophen 325 MG TAB PO PRN (23:24)
[2022-05-31] MEDS ORDERED: Milk Of Magnesia 30 ML UDCUP PO PRN (23:34)
[2022-05-31] MEDS ORDERED: Simethicone Chewable 80 MG TAB PO PRN (23:36)
[2022-05-31] MEDS ORDERED: Morphine 2 MG/ML VIAL SLOW IVP SCH (23:59)
[2022-06-01 01:27] LABS: Troponin I Less than 0.010 ng/mL (< 0.028)
[2022-06-01 04:57] LABS: #Monocytes 0.4 thou/uL (0.11-0.59); #Neutrophils 11.2 thou/uL (1.40-6.50); %Basophils 0.3 % (0.0-1.0); %Eosinophils 0.1 % (0.0-10.0); %Lymphocytes 7.8 % (21.0-51.0); %Monocytes 3.1 % (0.0-10.0); %Neutrophils 88.7 % (42.0-75.0); Hemoglobin 11.3 g/dL (12.0-16.0); Mean Corpuscular HGB CONC 33.2 g/dL (32.0-36.0); Mean Corpuscular Hemoglobin 30.2 pg (27.0-31.0); Mean Corpuscular Volume 90.8 fl (78.0-98.0); Mean Platelet Volume 9.6 fL (7.4-10.4); Platelet Count 229 10x3/uL (130-400); Red Blood Cell (RBC) Count 3.74 mill/uL (4.20-5.40); White Blood Cell (WBC) Count 12.7 10x3/uL (4.8-10.8)
[2022-06-01 05:21] LABS: Anion Gap 15 mmol/L (10-20); BUN (Urea Nitrogen) 26 mg/dL (9.8-20.1); Calc. Creatinine Clearance 81 mL/min (70-130); Calcium 9.6 mg/dL (7.8-10.44); Carbon Dioxide 29 mmol/L (23-31); Chloride 102 mmol/L (98-107); Estimated GFR 72; Glucose 146 mg/dL (83-110); Potassium 3.8 mmol/L (3.5-5.1); Sodium 142 mmol/L (136-145)
[2022-06-01 05:25] LABS: Troponin I Less than 0.010 ng/mL (< 0.028)
[2022-06-01] MEDS ORDERED: Levothyroxine Sodium 75 MCG TAB PO SCH (06:00)
[2022-06-01] MEDS ORDERED: Chlorthalidone 25 MG TAB PO SCH (09:00)
[2022-06-01] MEDS ORDERED: Gabapentin 300 MG CAP PO SCH (09:00)
[2022-06-01] MEDS ORDERED: Carvedilol 3.125 MG TAB PO SCH (09:00)
[2022-06-01] MEDS ORDERED: Ascorbic Acid 500 mg Chewable Tablet PO SCH (09:00)
[2022-06-01] MEDS ORDERED: Furosemide 20 MG TAB PO SCH (09:00)
[2022-06-01] MEDS ORDERED: Losartan 25 MG TAB PO SCH (09:00)
[2022-06-01] MEDS ORDERED: Cholecalciferol 1,000 UNITS (25 MCG) TAB PO SCH (09:00)
[2022-06-01] MEDS ORDERED: Apixaban 5 MG TAB PO SCH (09:00)
[2022-06-01] MEDS ORDERED: clonazePAM 0.5 MG TAB PO SCH (09:00)
[2022-06-01] MEDS ORDERED: busPIRone HCl 10 MG TAB PO SCH (09:00)
[2022-06-01] MEDS ORDERED: Aspirin 81 mg Enteric Coated Tablet PO SCH (09:00)
[2022-06-01] MEDS: Sucralfate 1 GM TAB PO SCH ×2 (11:17→11:34)
[2022-06-01] MEDS ORDERED: Cyclobenzaprine 10 MG TAB PO SCH ×2 (11:30→21:00)
[2022-06-01] MEDS ORDERED: Lidocaine 4% Patch TD SCH (12:00)
[2022-06-01 12:42] VITALS: BP 143/67; TEMP 97.8
[2022-06-01] MEDS ORDERED: Transdermal Patch Removal TOP SCH ×2 (21:00→23:59)
[2022-06-01] MEDS ORDERED: Atorvastatin Calcium 40 MG TAB PO SCH (21:00)
[2022-06-01] MEDS ORDERED: Fenofibrate Nanocrystallized 145 MG TAB PO SCH (21:00)
== END 2022-06-01 14:30 ==
LOC: 2NO 16:56
PROVIDERS: ADMIT Internal Medicine; ATTEND Internal Medicine
DX: R07.82 Intercostal pain (principal); F41.1 Generalized anxiety disorder; I13.0 Hypertensive heart and chronic kidney disease with heart failure and stage 1 through stage 4 chronic kidney disease, or unspecified chronic kidney disease; I50.30 Unspecified diastolic (congestive) heart failure; Z20.822 Contact with and (suspected) exposure to COVID-19; N18.9 Chronic kidney disease, unspecified; E03.9 Hypothyroidism, unspecified; E78.5 Hyperlipidemia, unspecified; I47.1 Supraventricular tachycardia; M10.9 Gout, unspecified; G89.29 Other chronic pain; J44.9 Chronic obstructive pulmonary disease, unspecified; K21.9 Gastro-esophageal reflux disease without esophagitis; E66.01 Morbid (severe) obesity due to excess calories; Z68.37 Body mass index [BMI] 37.0-37.9, adult; Z88.0 Allergy status to penicillin; Z88.2 Allergy status to sulfonamides; Z88.8 Allergy status to other drugs, medicaments and biological substances; Z86.73 Personal history of transient ischemic attack (TIA), and cerebral infarction without residual deficits; Z86.711 Personal history of pulmonary embolism; Z79.01 Long term (current) use of anticoagulants; Z79.02 Long term (current) use of antithrombotics/antiplatelets; Z79.82 Long term (current) use of aspirin; Z79.890 Hormone replacement therapy; Z79.899 Other long term (current) drug therapy
CPT/HCPCS: 71100; 72128; 80048; 84484 ×2; 85025; 96374; G0378 ×2; U0003; U0005; 36415; J2272

== ENCOUNTER 2024-04-28 21:34 | Emergency (ER) | payer MEDICARE, MEDICAID ==
[2024-04-28 22:51] LABS: #Basophils 0.04 10x3/uL (0.0-0.2); %Basophils 0.4 % (0.0-1.0); %Eosinophils 1.3 % (0.0-10.0); %Lymphocytes 11.2 % (21.0-51.0); %Monocytes 7.5 % (0.0-10.0); %Neutrophils 78.6 % (42.0-75.0); Hematocrit 35.2 % (36.0-47.0); Hemoglobin 10.9 g/dL (12.0-16.0); Mean Corpuscular Hemoglobin 29.8 pg (27.0-31.0); Mean Corpuscular Volume 96.2 fL (78.0-98.0); Mean Platelet Volume 10.7 fL (7.4-10.4); Platelet Count 176 10x3/uL (130-400); RBC Distribution Width 13.9 % (11.5-14.5); Red Blood Cell (RBC) Count 3.66 mill/uL (4.20-5.40)
[2024-04-28] MEDS ORDERED: Morphine 4 MG/ML VIAL ONE (22:56)
[2024-04-28] MEDS ORDERED: Ondansetron PF 4 MG/2 ML Vial ONE (22:56)
[2024-04-28 23:07] LABS: ALT (SGPT) Less than 7 U/L (Less than 34); AST (SGOT) 15 U/L (11-34); Albumin 3.2 g/dL (3.1-4.5); Alkaline Phosphatase 150 U/L (40-110); Anion Gap 13 mmol/L (10-20); BUN (Urea Nitrogen) 19 mg/dL (9.8-20.1); Bilirubin, Total 0.5 mg/dL (0.3-1.2); Calc. Creatinine Clearance 0 mL/min (70-130); Calcium 9.1 mg/dL (7.8-10.44); Carbon Dioxide 33 mmol/L (23-31); Chloride 103 mmol/L (98-107); Estimated GFR 56; Globulin 3.4 g/dL (2.4-3.5); Glucose 135 mg/dL (83-110); Lipase 46 U/L (8-78); Potassium 4.4 mmol/L (3.5-5.1); Protein, Total 6.6 g/dL (5.8-8.1); Sodium 145 mmol/L (136-145)
[2024-04-29 03:42] LABS: Bacteria/HPF None Seen HPF (None Seen); Bilirubin Negative (Negative); Blood, Urine Negative (Negative); CAUTI Indications for Culture Pelvic or flank pain; Clarity Clear (Clear); Glucose, Urine (Dipstick) Normal (Negative); Ketone, Urine Negative (Negative); Leukocyte 25 Leu/uL (Negative); Nitrite Negative (Negative); Protein, Urine (Dipstick) 10 mg/dL (Neg-Trace); RBC/HPF 0-3 HPF (0-3); Specific Gravity, Urine 1.021 (1.002-1.036); Squamous Epithelial 0-3 HPF (0-3); WBC/HPF 0-3 HPF (0-3); pH, Urine 6.5 (5.0-9.0)
[2024-04-29 03:49] LABS: Urine Culture Reflex No No
== END 2024-04-29 04:40 ==
LOC: ERS 21:34
DX: R10.84 Generalized abdominal pain (principal); R00.2 Palpitations; J44.9 Chronic obstructive pulmonary disease, unspecified; I13.0 Hypertensive heart and chronic kidney disease with heart failure and stage 1 through stage 4 chronic kidney disease, or unspecified chronic kidney disease; I50.9 Heart failure, unspecified; E11.22 Type 2 diabetes mellitus with diabetic chronic kidney disease; N18.9 Chronic kidney disease, unspecified; Z90.49 Acquired absence of other specified parts of digestive tract; Z96.653 Presence of artificial knee joint, bilateral
CPT/HCPCS: 74176; 80053; 81001; 83690; 85025; 93005; 96374; 96375; 99284; J2270; J2405; 36415